=== PATIENT | female | born 1980 | race Caucasian/White ===

== ENCOUNTER 2020-03-09 13:52 | Emergency (ER) | payer OTHER, SELFPAY ==
[2020-03-09 14:26] VITALS: BP 123/79; PULSE 102; RESP 18; TEMP 37.9; O2SAT 98; BMI 37.6
--- NOTE | 2020-03-09 15:34 | ED.URI ---
HPI - URI/Sore Throat General Chief Complaint: Upper Respiratory Symptoms Stated Complaint: flu like symptoms Time Seen by Provider: 03/09/20 15:16 Source: patient Mode of arrival: ambulatory Limitations: no limitations History of Present Illness HPI Narrative: 40 y/o healthy female presenting with flu-like symptoms for the last 4-5 days. She states it started with GI symptoms including nasuea, vomiting, diarrhea and is now more respiratory. She has a dry cough, nasal congestion and intermittent fevers. No abdominal pain, N/V/D resolved. She denies chest pain, SOB, and WOODS. No known exposure to COVID-19. She did not get her flu vaccine this year. MD elicited complaint: fever, cough and nasal congestion Onset (ago): day(s) (5) Consistency: constant Severity: moderate Description of mucous: clear Able to tolerate fluids by mouth: Yes Exacerbating factors: deep breaths Relieving factors: NSAID and OTC cold medicine Context: sick contacts Associated symptoms: fever, chills, myalgias, headache, nasal congestion, cough, nausea, vomiting and diarrhea Treatments prior to arrival: none Related Data Previous Rx's Medication Instructions Recorded hydrocodone-homatropine 5 ml PO Q6H PRN #60 ml 03/09/20 Allergies Allergy/AdvReac Type Severity Reaction Status Date / Time No Known Allergies Allergy Unverified 01/01/20 19:44 [No Known Allergies*] Review of Systems Review of Systems: Constitutional: + Fever, + Chills ENT/Mouth: No sore throat, No Rhinorrhea, No Swallowing Difficulty Eyes: No Eye Pain, No Swelling, No Redness Cardiovascular: No Chest Pain, No SOB, No Orthopnea, No Edema Respiratory: + Cough, No Sputum, No Wheezing, No dyspnea Gastrointestinal: + Nausea, + Vomiting, + Diarrhea, No abdominal Pain, No Hematochezia, No Melena Genitourinary: No Dysuria, No Urinary Frequency, No Hematuria Musculoskeletal: No joint pain, +Myalgias Skin: No Skin Lesions, No rash Neuro: No Weakness, No Numbness, No Dizziness, + Headache Psych: No Anxiety/Panic, No Depression Heme/Lymph: No Bruising, No Lymphadenopathy Endocrine: No Polyuria, No Polydipsia PMFSH Past Medical History Attestation statement: The following information was validated with the patient. Medical History Kidney calculi Surgical History (Updated 03/09/20 @ 14:29 by Monty Dumont) Hx of cholecystectomy Social History Social History Advance Directives: No Advance Directives Information Provided: Yes Physical Exam Vital Signs: Vital Signs: Last Vital Signs Temp 100.2 F 03/09/20 14:26 Pulse 102 H 03/09/20 14:26 Resp 18 03/09/20 14:26 BP 123/79 03/09/20 14:26 Pulse Ox 98 03/09/20 14:26 Body Mass Index 37.6 Appearance: Alert. Oriented X3. No acute distress. Eyes: Pupils equal, round and reactive to light. ENT: Pharynx normal. Neck: Normal inspection. Neck supple. CVS: Normal heart rate and rhythm. Pulses normal. Respiratory: No respiratory distress. Breath sounds normal. Abdomen: Soft and nontender. +BS x4 Skin: Skin warm and dry. Normal skin color. Normal skin turgor. No rashes. Extremities: No lower extremity edema. Neuro: Oriented X 3. No motor deficit. No sensory deficit. Course Course Course Narrative: 40 y/o female presenting with flu-like symptoms. Mild tachycardia with low grade fever on arrival. No resp distress or hypoxia, patient appears non-toxic. Concern for viral etiology including COVID or influenza. Less likely bacterial pneumonia, gastroenteritis. Resp panel pending. Reevaluation(s) Reevaluation #1: COVID positive. No hypoxia. Stable for d/c. Patient counseled. MDM - URI/Sore Throat MDM Narrative Medical decision making narrative: COVID-19 Differential Diagnosis Differential diagnosis: Likely upper respiratory infection, croup, otitis media, sinusitis, viral infection, bronchitis, influenza and pharyngitis Lab Data Labs: Lab Results 03/09/20 Range/Units 15:48 Coronavirus (PCR) POSITIVE A (Negative) Influenza Type A (PCR) NEGATIVE (Negative) Influenza Type B (PCR) NEGATIVE (Negative) RSV RNA Qual (PCR) NEGATIVE (Negative) Critical Care Time Critical Care Time Critical Care Time: No Discharge Plan Discharge Clinical Impression: COVID-19 Patient Disposition: Home, Self-Care Instructions: COVID-19 (Coronavirus Disease 2019) (ED) Additional Instructions: You tested positive for COVID-19 today. Continue symptomatic managment with over the counter cold and flu medications. Tylenol and motrin as needed for fever. Do not go out in public for 10-14 days. If you develop shortness of breath, difficulty breathing or chest pain call 911 or come back to the ER for further evaluation. Prescriptions: New hydrocodone-homatropine 5-1.5 mg/5 mL syrup 5 ml PO Q6H PRN (Reason: cough) Qty: 60 RF: 0
[2020-03-09] MEDS: Acetaminophen 325 MG TABLET 650 MG PO (15:59)
[2020-03-09 16:34] LABS: Influenza A PCR NEGATIVE (Negative); Influenza B PCR NEGATIVE (Negative); Resp Syncy Virus RNA Qual PCR NEGATIVE (Negative); SARS COV2 PCR INHOUSE POSITIVE (Negative)
== END 2020-03-09 17:03 | disposition home or self-care (01) ==
PROVIDERS: Physician Assistant; Emergency Provider Emergency Medicine Emergency Medical Services; PCP Internal Medicine
DX: U07.1 COVID-19 (principal); R05 Cough
CPT/HCPCS: 0241U; 96374; 99283; 99285

== ENCOUNTER 2020-03-24 13:10 | Outpatient (REF) | payer OTHER, SELFPAY | END 2020-03-24 13:11 | disposition home or self-care (01) | LOC: HO.LAB 13:10 | PROVIDERS: PCP Internal Medicine; Visit Provider Internal Medicine | DX: Z20.828 Contact with and (suspected) exposure to other viral communicable diseases (principal) | CPT/HCPCS: C9803; U0003 ==

== ENCOUNTER 2020-04-06 11:36 | Outpatient (REF) | payer OTHER, SELFPAY | END 2020-04-06 11:37 | disposition home or self-care (01) | LOC: HO.LAB 11:36 | PROVIDERS: PCP Internal Medicine; Visit Provider Internal Medicine | DX: Z20.828 Contact with and (suspected) exposure to other viral communicable diseases (principal) | CPT/HCPCS: C9803; U0003 ==

== ENCOUNTER → 2020-04-14 13:33 | Outpatient (BNVA) | payer OTHER, SELFPAY | PROVIDERS: PCP Internal Medicine; Visit Provider Nurse Practitioner | DX: Z76.89 Persons encountering health services in other specified circumstances (principal) ==

== ENCOUNTER 2020-04-30 14:15 | Outpatient (REF) | payer OTHER, SELFPAY ==
--- NOTE | 2020-04-30 14:55 | XR_ITS ---
EXAMINATION: XR CHEST CLINICAL INFORMATION: Shortness of breath. COMPARISON: None TECHNIQUE: 2 views of the chest were obtained. FINDINGS: No significant abnormality is noted involving the heart, lungs, mediastinum, bony thorax or soft tissues. XR/XR chest 2V IMPRESSION: Unremarkable chest examination.
[2020-04-30 16:24] LABS: MANUAL DIFF FLAG NO
[2020-04-30 16:37] LABS: Basophils Percent Auto 0.5 % (0-2); Eosinophils Absolute Auto 0.2 X10*3/uL (0.0-0.4); Eosinophils Percent Auto 1.9 % (0-4); Hematocrit 39.9 % (37-47); Hemoglobin 13.2 g/dl (12.0-16.0); Imm Gran Abs Auto 0.06 X10*3/uL (0.00-0.03); Imm Gran Pct Auto 0.8 % (0.0-0.4); Lymphocytes Percent Auto 39.2 % (20-40); Mean Corpuscular HGB Conc 33.1 g/dl (31.0-35.0); Mean Corpuscular Hemoglobin 29.9 pg (27.0-33.0); Mean Corpuscular Volume 90.3 fL (80-98); Mean Platelet Volume 9.3 fL (9.4-12.3); Monocytes Absolute Auto 0.6 X10*3/uL (0.1-1.2); Monocytes Percent Auto 7.8 % (2-11); Neutrophils Absolute Auto 3.9 X10*3/uL (2.0-8.3); Neutrophils Percent Auto 49.8 % (45-73); Platelet Count 387 X10*3/uL (160-400); Red Blood Count 4.42 X10*6/uL (4.20-5.50); Red Cell Distribution Width 13.2 % (11.0-16.0); White Blood Count 7.7 X10*3/uL (4.8-10.8)
[2020-04-30 17:19] LABS: Alanine Aminotransferase 20 U/L (0-31); Albumin Level 4.1 g/dL (3.5-5.0); Alkaline Phosphatase 69 U/L (39-117); Anion Gap 15 (12-20); Aspartate Amino Transferase 15 U/L (5-31); Bilirubin Total 0.5 mg/dL (0.0-1.0); Blood Urea Nitrogen 13 mg/dL (9-16); Calcium 8.7 mg/dL (8.4-10.2); Carbon Dioxide 22 mmol/L (22-29); Chloride 106 mmol/L (96-108); Estimated Glomerular Filt Rate > 60; Glucose Random 77 mg/dL (60-115); Potassium 3.9 mmol/l (3.3-5.1); Sodium 139 mmol/L (135-145); Total Protein 7.3 g/dL (6.5-8.0)
== END 2020-04-30 14:16 | disposition home or self-care (01) ==
LOC: HO.LAB 14:15
PROVIDERS: PCP Internal Medicine; Visit Provider Internal Medicine
DX: R06.02 Shortness of breath (principal)
CPT/HCPCS: 36415; 71046; 80053; 85025

== ENCOUNTER 2020-05-12 10:48 | Emergency (ER) | payer OTHER, SELFPAY ==
--- NOTE | 2020-05-12 10:54 | ECG_ITS ---
Test Reason : CHEST PAIN Blood Pressure : / mmHG Vent. Rate : 119 BPM Atrial Rate : 119 BPM P-R Int : 154 ms QRS Dur : 060 ms QT Int : 314 ms P-R-T Axes : 066 068 052 degrees QTc Int : 441 ms Sinus tachycardia Otherwise normal ECG When compared with ECG of 31-AUG-2019 16:48, No significant changes seen Referred By: Ilia Banerjee Electronically Signed By:Yoshi Devi
--- NOTE | 2020-05-12 10:55 | ED.CHESTPAIN ---
HPI - Chest Pain General Chief Complaint: Chest Pain Stated Complaint: chest pain, headache Time Seen by Provider: 05/12/20 10:54 Source: patient Mode of arrival: ambulatory Limitations: no limitations History of Present Illness HPI narrative: Headache and chest pain and feesl like her heart is going fast. patient also having nausea. Patient feeling stressed as her mother had a bad case and was admitted to the ICU. MD complaint: chest pain Onset (ago): week(s) Timing of current episode: episodic Prior episodes: Yes Onset: during rest Pain location: substernal and left chest Severity: moderate Quality: tightness Relieving factors: nothing Exacerbating factors: nothing Related Data Home Medications Medication Instructions Recorded Confirmed omeprazole 20 mg capsule,delayed 20 mg PO DAILY 04/29/20 04/29/20 release Allergies Allergy/AdvReac Type Severity Reaction Status Date / Time No Known Allergies Allergy Verified 04/29/20 15:30 [No Known Allergies*] Review of Systems Constitutional: Constitutional: Reports no additional constitutional complaints Eyes: Eyes: Reports no additional eye complaints ENT: Denies dizziness Cardiovascular: Cardiovascular: Reports no additional cardiovascular complaints Respiratory: Respiratory: Reports as per HPI Gastrointestinal: Gastrointestinal: Reports no additional gastrointestinal complaints Genitourinary: Genitourinary: Reports no additional female genitourinary complaints Musculoskeletal: Musculoskeletal: Reports no additional musculoskeletal complaints Integumentary/Breasts: Skin/Breast: Denies rash Neurologic: Reports system reviewed and no additional complaints, except as documented, Denies dizziness and Denies Sensory deficit (Neuro) Psychiatric: Psychiatric: Denies anxiety PMFSH Past Medical History Medical History (Updated 05/12/20 @ 16:03 by Ilia Banerjee MD) COVID-19 Hernia Kidney calculi Migraines Shortness of breath Surgical History Hx of cholecystectomy S/P myomectomy Family History Family History Family/Other No pertinent past medical history Father Lung cancer Mother Hypertension Diabetes Social History Social History Alcohol intake: never Smoking Status: Never smoker Smoked in Last 30 Days: No Use of substances other than those prescribed or required for medical reasons: No Advance Directives: No Advance Directives Information Provided: Yes Physical Exam Vital Signs: Vital Signs: Last Vital Signs Temp 98.8 F 05/12/20 15:35 Pulse 109 H 05/12/20 15:35 Resp 18 05/12/20 15:35 BP 129/88 05/12/20 15:35 Pulse Ox 98 05/12/20 15:35 Body Mass Index 37.3 Const: General: healthy appearing Nutritional Appearance: overweight Orientation/consciousness: oriented to person and patient oriented x3 Limitations: no limitations HENMT: Head: Yes normal to inspection Ears: external ears normal General nose exam: Normal external nose present Mouth: Normal oral and palatal mucosa present and oropharynx normal Throat: Yes posterior oropharynx normal Eyes: General: appearance normal, both eyes and all related structures Neck: Other: supple Neck: Yes normal visual inspection Chest: Chest palpation & inspection: normal inspection of the chest Resp: Auscultation: clear to auscultation bilaterally Cardio: Other: tachycardia Jugular venous distension: no JVD Rate: regular rate Rhythm: regular rhythm GI: Inspection: Yes normal to inspection Palpation (GI): Soft to palpation, nontender and No hepatosplenomegaly present Auscultation: normal bowel sounds : General: Yes no CVA tenderness Back/Spine/Pelvis: Back: no CVA tenderness Skin: General skin exam: no rashes or lesions noted Neuro: General: oriented to person and patient oriented x3 Cranial nerves: Yes CN's II-XII intact bilaterally Motor exam (neuro): 5/5 motor strength present throughout Sensory Exam: No Sensory deficit (Neuro) Extrem: General: Yes normal to inspection Psych: Appearance: grossly normal Course Course Course Narrative: still waiting on chem 7 and TSH will dc with likely anxiety Reevaluation(s) Reevaluation #1: labs look normal will dc home Time: 16:14 MDM - Chest Pain Lab Data Result diagrams: 05/12/20 11:23 05/12/20 15:32 Labs: Lab Results 05/12/20 05/12/20 05/12/20 Range/Units 11:23 11:23 15:32 WBC 7.8 (4.8-10.8) X10*3/uL RBC 4.86 (4.20-5.50) X10*6/uL Hgb 14.6 (12.0-16.0) g/dl Hct 43.8 (37-47) % MCV 90.1 (80-98) fL MCH 30.0 (27.0-33.0) pg MCHC 33.3 (31.0-35.0) g/dl RDW 13.5 (11.0-16.0) % Plt Count 388 (160-400) X10*3/uL MPV 9.0 L (9.4-12.3) fL Immature Gran % (Auto) 0.6 H (0.0-0.4) % Neut % (Auto) 62.7 (45-73) % Lymph % (Auto) 27.7 (20-40) % Bulloch % (Auto) 6.4 (2-11) % Eos % (Auto) 2.1 (0-4) % Baso % (Auto) 0.5 (0-2) % Lymph # (Auto) 2.2 (1.2-4.9) X10*3/uL Bulloch # (Auto) 0.5 (0.1-1.2) X10*3/uL Eos # (Auto) 0.2 (0.0-0.4) X10*3/uL Baso # (Auto) 0.0 (0.0-0.2) X10*3/uL Abs Immat Gran (auto) 0.05 H (0.00-0.03) X10*3/uL Absolute Neuts (auto) 4.9 (2.0-8.3) X10*3/uL Absolute Nucleated RBC 0.000 (0.0-0.012) X10*3/uL Nucleated RBC % (auto) 0.0 (0.0-0.2) /100WBC Sodium 138 (135-145) mmol/L Potassium 3.8 (3.3-5.1) mmol/l Chloride 110 H (96-108) mmol/L Carbon Dioxide 20 L (22-29) mmol/L Anion Gap 12 (12-20) BUN 11 (9-16) mg/dL Creatinine 0.67 (0.5-1.4) mg/dL Estim Creat Clear Calc 101.3 Estimated GFR > 60 Random Glucose 94 (60-115) mg/dL Calcium 7.8 L D (8.4-10.2) mg/dL Troponin I High Sens < 3.5 (<3.5-17.0) ng/L ECG Data ECG #1: Attestation: I personally reviewed and interpreted this ECG as follows: Interpretation: sinus tachycardia rate of [address] or twave changes Discharge Plan Discharge Clinical Impression: Anxiety Headache Qualifiers: Headache type: tension-type Headache chronicity pattern: acute headache Intractability: not intractable Qualified Code(s): G44.209 - Tension-type headache, unspecified, not intractable Patient Disposition: Home, Self-Care Instructions: Acute Headache (ED), Anxiety (ED) Prescriptions: No Action omeprazole 20 mg capsule,delayed release(DR/EC) 20 mg PO DAILY RF: 0 Referrals: Cait Beckham MD [Primary Care Provider] - 2 days
[2020-05-12 10:58] VITALS: BP 121/76; PULSE 129; RESP 18; TEMP 37.1; O2SAT 96; BMI 37.3
[2020-05-12 11:04] VITALS: PULSE 129
[2020-05-12] MEDS: 0.9 % Sodium Chloride 1,000 ML 999 ML IVCONT ×2 (11:27→13:14)
[2020-05-12] MEDS: LORazepam 2 MG/ML VIAL 1 MG IVPUSH (11:28)
[2020-05-12] MEDS: Ketorolac Tromethamine 30 MG/ML VIAL IVPUSH (11:28)
[2020-05-12 11:30] LABS: MANUAL DIFF FLAG NO
--- NOTE | 2020-05-12 11:30 | PC.NURSE ---
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
[2020-05-12 11:36] LABS: Basophils Percent Auto 0.5 % (0-2); Eosinophils Absolute Auto 0.2 X10*3/uL (0.0-0.4); Eosinophils Percent Auto 2.1 % (0-4); Hematocrit 43.8 % (37-47); Hemoglobin 14.6 g/dl (12.0-16.0); Imm Gran Abs Auto 0.05 X10*3/uL (0.00-0.03); Imm Gran Pct Auto 0.6 % (0.0-0.4); Lymphocytes Absolute Auto 2.2 X10*3/uL (1.2-4.9); Lymphocytes Percent Auto 27.7 % (20-40); Mean Corpuscular HGB Conc 33.3 g/dl (31.0-35.0); Mean Corpuscular Volume 90.1 fL (80-98); Monocytes Absolute Auto 0.5 X10*3/uL (0.1-1.2); Monocytes Percent Auto 6.4 % (2-11); Neutrophils Absolute Auto 4.9 X10*3/uL (2.0-8.3); Neutrophils Percent Auto 62.7 % (45-73); Platelet Count 388 X10*3/uL (160-400); Red Blood Count 4.86 X10*6/uL (4.20-5.50); Red Cell Distribution Width 13.5 % (11.0-16.0); White Blood Count 7.8 X10*3/uL (4.8-10.8)
[2020-05-12 12:08] LABS: Troponin-I High Sensitivity < 3.5 ng/L (<3.5-17.0)
--- NOTE | 2020-05-12 13:14 | PC.NURSE ---
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
[2020-05-12 13:52] VITALS: BP 135/85; PULSE 99; RESP 18; TEMP 37.1; O2SAT 99
--- NOTE | 2020-05-12 13:53 | PC.NURSE ---
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
--- NOTE | 2020-05-12 14:43 | PC.NURSE ---
repeat labs tech was unable to obtain labs as patient is a difficult stick, phlebotomy was called to obtain labs
[2020-05-12 15:35] VITALS: BP 129/88; PULSE 109; RESP 18; TEMP 37.1; O2SAT 98
--- NOTE | 2020-05-12 15:35 | PC.NURSE ---
pt a&ox3, ambulated independently with steady gait to bathroom, radiographer cardiac catheterization sinus tach, vss, phlebotomy afua labs, will continue to monitor.
[2020-05-12 16:03] LABS: Anion Gap 12 (12-20); Blood Urea Nitrogen 11 mg/dL (9-16); Calcium 7.8 mg/dL (8.4-10.2); Carbon Dioxide 20 mmol/L (22-29); Creatinine Clr Calc Pharmacy 101.3; Estimated Glomerular Filt Rate > 60; Glucose Random 94 mg/dL (60-115); Potassium 3.8 mmol/l (3.3-5.1)
[2020-05-12 16:06] LABS: Chloride 110 mmol/L (96-108); Sodium 138 mmol/L (135-145)
[2020-05-12 16:26] LABS: TSH reflex Free T4 2.19 mIU/mL (0.32-4.0)
== END 2020-05-12 16:32 | disposition home or self-care (01) ==
PROVIDERS: Emergency Provider Emergency Medicine; PCP Internal Medicine
DX: G44.209 Tension-type headache, unspecified, not intractable (principal); R07.89 Other chest pain; F41.1 Generalized anxiety disorder; F43.0 Acute stress reaction; Z79.899 Other long term (current) drug therapy
CPT/HCPCS: 36415; 80048; 84443; 84484; 85025; 93005; 96361; 96374; 96375; 99284; J1885; J2060

== ENCOUNTER 2020-05-19 11:45 | Outpatient (REF) | payer OTHER, SELFPAY ==
[2020-05-19 12:38] LABS: Hematocrit 40.5 % (37-47); Hemoglobin 13.6 g/dl (12.0-16.0); Mean Corpuscular HGB Conc 33.6 g/dl (31.0-35.0); Mean Corpuscular Volume 89.4 fL (80-98); Platelet Count 409 X10*3/uL (160-400); Red Blood Count 4.53 X10*6/uL (4.20-5.50); Red Cell Distribution Width 13.1 % (11.0-16.0); White Blood Count 8.5 X10*3/uL (4.8-10.8)
[2020-05-19 13:11] LABS: Anion Gap 14 (12-20); Blood Urea Nitrogen 12 mg/dL (9-16); Calcium 9.3 mg/dL (8.4-10.2); Carbon Dioxide 23 mmol/L (22-29); Chloride 105 mmol/L (96-108); Cholesterol 148 mg/dL; Estimated Glomerular Filt Rate > 60; Glucose Fasting 79 mg/dL (60-99); HDL Cholesterol 45 mg/dL; LDL Cholesterol Calculated 90 mg/dl; Potassium 4.3 mmol/L (3.3-5.1); Sodium 138 mmol/L (135-145); Triglycerides 65 mg/dL
== END 2020-05-19 11:46 | disposition home or self-care (01) ==
LOC: HO.LAB 11:45
PROVIDERS: PCP Internal Medicine; Visit Provider Nurse Practitioner Family
DX: Z86.16 Personal history of COVID-19 (principal)
CPT/HCPCS: 36415; 80048; 80061; 85027

== ENCOUNTER 2020-05-24 09:15 | Outpatient (REF) | payer OTHER, SELFPAY ==
--- NOTE | 2020-05-24 14:59 | PFT_ITS ---
INDICATION: Dyspnea. SPIROMETRY: The FEV1 to FVC of 87% with an FEV1 of 2.31 L, which is 94% predicted and an FVC of 2.66 L, which is 89% predicted. No significant response to bronchodilators noted. Throughout, the patient does have some evidence of small airways disease. The maximum voluntary ventilation is 94% predicted. LUNG VOLUMES: Total lung capacity 96% predicted with a residual volume of 115% predicted and an expiratory reserve volume of 49% predicted. DIFFUSION CAPACITY: DLCO 121% predicted. COMPARISONS: None. INTERPRETATION: No obstructive nor restrictive ventilatory defects have been identified. No significant response to bronchodilators noted. The patient may have some component of small airways disease noted. Lung volumes are within normal limits except for slightly elevated residual volume suggesting the possibility of air trapping. The patient also has a high normal diffusion capacity, bringing up the question of exogenous exposure to carbon monoxide. If asthma is in the differential, methacholine challenge may be helpful in assessing for hyper-reactive airways. Otherwise, clinical correlation warranted. MD SAMUEL Lopez/MODOskar / [phone]
== END 2020-05-24 09:16 | disposition home or self-care (01) ==
LOC: HO.RESP 09:15
PROVIDERS: Visit Provider Internal Medicine
DX: R06.02 Shortness of breath (principal)
CPT/HCPCS: 94060; 94727; 94729; 99202

== ENCOUNTER → 2020-07-05 13:41 | Outpatient (REF) | payer OTHER, SELFPAY | LOC: HO.SL 13:41 | PROVIDERS: PCP Internal Medicine; Visit Provider Internal Medicine Pulmonary Disease | DX: G47.33 Obstructive sleep apnea (adult) (pediatric) (principal) | CPT/HCPCS: 95806 ==

== ENCOUNTER → 2020-07-20 15:07 | Outpatient (BNVA) | payer OTHER, SELFPAY | PROVIDERS: Visit Provider Internal Medicine Pulmonary Disease | DX: J45.40 Moderate persistent asthma, uncomplicated (principal); G47.33 Obstructive sleep apnea (adult) (pediatric) | CPT/HCPCS: 99212 ==

== ENCOUNTER 2020-07-25 20:15 | Emergency (ER) | payer OTHER, SELFPAY ==
[2020-07-25 20:20] VITALS: BP 144/66; PULSE 100; RESP 18; TEMP 36.8; O2SAT 98; BMI 38.0
--- NOTE | 2020-07-25 20:32 | ECG_ITS ---
Test Reason : DIZZINSS Blood Pressure : / mmHG Vent. Rate : 083 BPM Atrial Rate : 083 BPM P-R Int : 152 ms QRS Dur : 068 ms QT Int : 368 ms P-R-T Axes : 046 059 047 degrees QTc Int : 432 ms Normal sinus rhythm Normal ECG When compared with ECG of 12-MAY-2020 10:54, Nonspecific T wave abnormality no longer evident in Lateral leads Referred By: Generic ED Physician Electronically Signed By:COLBY BRASWELL
--- NOTE | 2020-07-25 21:08 | ED_ITS ---
HPI - General Adult General Chief complaint: General Medical Stated complaint: Headache,nausea,vomiting Time Seen by Provider: 07/25/20 21:06 Source: patient Mode of arrival: ambulatory History of Present Illness HPI narrative: This is a 40-year-old female with history of GERD and asthma who presents with 3 weeks of morning time nausea this seems to improve throughout the day and this has been accompanied by headache and feeling lightheaded. Patient does have significant travel history to [facility] and she returned on 07/02. She endorses that she is currently taking vitamins in an effort to become and that her LMP is 07/06-07/09 and that it was light pink in nature. Otherwise, she denies any fevers, chills, shortness of breath, chest pain/palpitations, abdominal pain/diarrhea, but is having some urinary frequency. No recent history of hemoptysis, estrogen supplementation, personal history of cancer, recent surgery or bed bound state, calf pain or calf swelling. In addition, patient has not been treating her headache with any Tylenol or ibuprofen. Related Data Home Medications Medication Instructions Recorded Confirmed omeprazole 20 mg capsule,delayed 20 mg PO DAILY 04/29/20 07/06/20 release vitamin 1 tab PO DAILY 05/17/20 07/06/20 no.76-iron,carbonyl 29 mg iron-folic acid 1 mg tablet Previous Rx's Medication Instructions Recorded budesonide-formoterol HFA 160 2 puff INHALATION BID 30 Days #1 ea 05/24/20 mcg-4.5 mcg/actuation aerosol inhaler calcium carbonate 500 mg calcium 500 mg PO DAILY #30 tab 07/06/20 (1,250 mg) tablet escitalopram oxalate 5 mg tablet 5 mg PO DAILY #30 tab 07/06/20 Allergies Allergy/AdvReac Type Severity Reaction Status Date / Time No Known Allergies Allergy Verified 07/20/20 15:14 [No Known Allergies*] Review of Systems Review of Systems: Pertinent positives and negatives as stated in HPI 10 point review of systems is otherwise negative. [facility] Past Medical History Source: nursing notes reviewed Medical History Anxiety and depression COVID-19 Hernia Hospital discharge follow-up Kidney calculi Migraines Post-COVID syndrome Shortness of breath Surgical History Hx of cholecystectomy S/P myomectomy Family History Family History Family/Other No pertinent past medical history Father Lung cancer Mother Hypertension Diabetes Social History Social History Alcohol intake: current Alcohol intake frequency: holidays/special occasions only Smoking Status: Never smoker Advance Directives: No Advance Directives Information Provided: Yes Physical Exam Vital Signs: Vital Signs: Last Vital Signs Temp 98.3 F 07/25/20 20:20 Pulse 84 07/25/20 23:01 Resp 18 07/25/20 20:20 BP 135/79 07/25/20 23:01 Pulse Ox 98 07/25/20 20:20 Body Mass Index 38.0 VITAL SIGNS: Reviewed. GENERAL: Well developed, well nourished, in no acute distress. HEAD: Normocephalic/atraumatic EYES: PERRLA, EOMI NOSE: Nares patent bilateral OROPHARYNX: no oral lesions noted, posterior pharynx clear , moist mucosa NECK: Supple, no adenopathy LUNGS: Normal breath sounds. SpO2<98> CARDIOVASCULAR: Regular rate and rhythm without noted murmurs ABDOMEN: Soft, non-tender, non-distended with bowel sounds. EXTREMITIES: No calf pain or swelling bilaterally. NEUROLOGIC: Alert and oriented x 4. Strength and sensation to light touch were grossly intact x 4, otherwise grossly nonfocal. Course Course Course Narrative: This is a 40-year-old female with history and clinical presentation suggestive possible and with history of migraines this is in the differential. On review of all investigations there are no acute findings. This was discussed with the patient at bedside and on re-evaluation she has had good resolution of her symptoms after receiving IV fluids and combination analgesics. She was discharged in stable condition with instructions to follow-up with a primary care provider by calling the office tomorrow morning Medical Decision Making Lab Data Result diagrams: 07/25/20 22:09 07/25/20 22:09 Labs: Lab Results 07/25/20 07/25/20 07/25/20 Range/Units 22:09 22:09 22:09 WBC 10.9 H (4.8-10.8) X10*3/uL RBC 4.46 (4.20-5.50) X10*6/uL Hgb 13.4 (12.0-16.0) g/dl Hct 40.2 (37-47) % MCV 90.1 (80-98) fL MCH 30.0 (27.0-33.0) pg MCHC 33.3 (31.0-35.0) g/dl RDW 12.7 (11.0-16.0) % Plt Count 326 (160-400) X10*3/uL MPV 9.1 L (9.4-12.3) fL Immature Gran % (Auto) 0.4 (0.0-0.4) % Neut % (Auto) 57.1 (45-73) % Lymph % (Auto) 33.3 (20-40) % Stanton % (Auto) 7.4 (2-11) % Eos % (Auto) 1.3 (0-4) % Baso % (Auto) 0.5 (0-2) % Lymph # (Auto) 3.6 (1.2-4.9) X10*3/uL Stanton # (Auto) 0.8 (0.1-1.2) X10*3/uL Eos # (Auto) 0.1 (0.0-0.4) X10*3/uL Baso # (Auto) 0.1 (0.0-0.2) X10*3/uL Abs Immat Gran (auto) 0.04 H (0.00-0.03) X10*3/uL Absolute Neuts (auto) 6.3 (2.0-8.3) X10*3/uL Absolute Nucleated RBC 0.000 (0.0-0.012) X10*3/uL Nucleated RBC % (auto) 0.0 (0.0-0.2) /100WBC Sodium 139 (135-145) mmol/L Potassium 4.5 (3.3-5.1) mmol/L Chloride 108 (96-108) mmol/L Carbon Dioxide 20 L (22-29) mmol/L Anion Gap 16 (12-20) BUN 13 (9-16) mg/dL Creatinine 0.76 (0.5-1.4) mg/dL Estim Creat Clear Calc 90.4 Estimated GFR > 60 Random Glucose 98 (60-115) mg/dL Calcium 8.7 D (8.4-10.2) mg/dL Total Bilirubin 0.3 (0.0-1.0) mg/dL AST 25 D (5-31) U/L ALT 19 (0-31) U/L Alkaline Phosphatase 67 (39-117) U/L Total Protein 7.7 (6.5-8.0) g/dL Albumin 4.0 (3.5-5.0) g/dL Urine Color YELLOW Urine Appearance CLEAR Urine pH 6.0 (5.0-8.0) Ur Specific Firth 1.025 (1.005-1.025) Urine Protein NEG (NEG-TRACE) MG/DL Urine Glucose (UA) NEG (NEG) MG/DL Urine Ketones NEG (NEG) MG/DL Urine Blood NEG (NEG) Urine Nitrite NEG (NEG) Ur Leukocyte Esterase NEG (NEG) Urine Test (NEGATIVE) 07/25/20 Range/Units 22:09 WBC (4.8-10.8) X10*3/uL RBC (4.20-5.50) X10*6/uL Hgb (12.0-16.0) g/dl Hct (37-47) % MCV (80-98) fL MCH (27.0-33.0) pg MCHC (31.0-35.0) g/dl RDW (11.0-16.0) % Plt Count (160-400) X10*3/uL MPV (9.4-12.3) fL Immature Gran % (Auto) (0.0-0.4) % Neut % (Auto) (45-73) % Lymph % (Auto) (20-40) % Stanton % (Auto) (2-11) % Eos % (Auto) (0-4) % Baso % (Auto) (0-2) % Lymph # (Auto) (1.2-4.9) X10*3/uL Stanton # (Auto) (0.1-1.2) X10*3/uL Eos # (Auto) (0.0-0.4) X10*3/uL Baso # (Auto) (0.0-0.2) X10*3/uL Abs Immat Gran (auto) (0.00-0.03) X10*3/uL Absolute Neuts (auto) (2.0-8.3) X10*3/uL Absolute Nucleated RBC (0.0-0.012) X10*3/uL Nucleated RBC % (auto) (0.0-0.2) /100WBC Sodium (135-145) mmol/L Potassium (3.3-5.1) mmol/L Chloride (96-108) mmol/L Carbon Dioxide (22-29) mmol/L Anion Gap (12-20) BUN (9-16) mg/dL Creatinine (0.5-1.4) mg/dL Estim Creat Clear Calc Estimated GFR Random Glucose (60-115) mg/dL Calcium (8.4-10.2) mg/dL Total Bilirubin (0.0-1.0) mg/dL AST (5-31) U/L ALT (0-31) U/L Alkaline Phosphatase (39-117) U/L Total Protein (6.5-8.0) g/dL Albumin (3.5-5.0) g/dL Urine Color Urine Appearance Urine pH (5.0-8.0) Ur Specific Firth (1.005-1.025) Urine Protein (NEG-TRACE) MG/DL Urine Glucose (UA) (NEG) MG/DL Urine Ketones (NEG) MG/DL Urine Blood (NEG) Urine Nitrite (NEG) Ur Leukocyte Esterase (NEG) Urine Test NEGATIVE (NEGATIVE) ECG Data Attestation: I personally reviewed and interpreted this ECG as follows: Prior ECG tracings: available for review (05/12/2020 no acute changes on comparison) Interpretation: Sinus rhythm, HR-83, no acute evidence of acute ischemia, DE/QRS/QTC are within normal limits. Discharge Plan Discharge Clinical Impression: Headache, Nausea Patient Disposition: Home, Self-Care Instructions: General Headache (ED) Additional Instructions: 1. Continue to stay well hydrated especially with water. 2. Please follow-up with your primary care provider by calling the office tomorrow morning to set up a re-evaluation appointment. 3. Do not hesitate to take [id number] Tylenol/ibuprofen as needed for headache. Do not hesitate to return to the emergency department for any acute worsening of your symptoms. Prescriptions: No Action calcium carbonate 500 mg calcium (1,250 mg) tablet 500 mg PO DAILY Qty: 30 RF: 0 escitalopram oxalate 5 mg tablet 5 mg PO DAILY Qty: 30 RF: 0 omeprazole 20 mg capsule,delayed release(DR/EC) 20 mg PO DAILY RF: 0 PNV 29-1 29 mg iron- 1 mg tablet 1 tab PO DAILY RF: 0 budesonide-formoterol 160-4.5 mcg/actuation HFA aerosol inhaler 2 puff inhalation BID 30 Days Qty: 1 RF: 3 Referrals: Cait Beckham MD [Primary Care Provider] - 2 days (Re-evaluation after seen in the emergency department for headache and mild nausea isolated to morning time.)
[2020-07-25] MEDS: ondansetron HCL 4 MG/2 ML VIAL IVPUSH (22:00)
[2020-07-25] MEDS: 0.9 % Sodium Chloride 1,000 ML 999 ML IV (22:00)
[2020-07-25 22:16] LABS: MANUAL DIFF FLAG NO
[2020-07-25 22:17] LABS: Basophils Absolute Auto 0.1 X10*3/uL (0.0-0.2); Basophils Percent Auto 0.5 % (0-2); Eosinophils Absolute Auto 0.1 X10*3/uL (0.0-0.4); Eosinophils Percent Auto 1.3 % (0-4); Hematocrit 40.2 % (37-47); Hemoglobin 13.4 g/dl (12.0-16.0); Imm Gran Abs Auto 0.04 X10*3/uL (0.00-0.03); Imm Gran Pct Auto 0.4 % (0.0-0.4); Lymphocytes Absolute Auto 3.6 X10*3/uL (1.2-4.9); Lymphocytes Percent Auto 33.3 % (20-40); Mean Corpuscular HGB Conc 33.3 g/dl (31.0-35.0); Mean Corpuscular Volume 90.1 fL (80-98); Mean Platelet Volume 9.1 fL (9.4-12.3); Monocytes Absolute Auto 0.8 X10*3/uL (0.1-1.2); Monocytes Percent Auto 7.4 % (2-11); Neutrophils Absolute Auto 6.3 X10*3/uL (2.0-8.3); Neutrophils Percent Auto 57.1 % (45-73); Platelet Count 326 X10*3/uL (160-400); Red Blood Count 4.46 X10*6/uL (4.20-5.50); Red Cell Distribution Width 12.7 % (11.0-16.0); White Blood Count 10.9 X10*3/uL (4.8-10.8)
[2020-07-25 22:19] LABS: Glucose Urine UA NEG (NEG); Leukocyte Esterase Urine NEG (NEG); Nitrite Urine NEG (NEG); Specific Gravity - Urine 1.025 (1.005-1.025); Urine Blood NEG (NEG); Urine Ketones NEG (NEG); Urine Protein NEG (NEG-TRACE)
[2020-07-25 22:23] LABS: Appearance Urine CLEAR; Color Urine YELLOW; Urine Pregnancy NEGATIVE (NEGATIVE)
[2020-07-25 22:24] LABS: UPreg QC Valid YES
[2020-07-25 22:54] LABS: Alanine Aminotransferase 19 U/L (0-31); Alkaline Phosphatase 67 U/L (39-117); Anion Gap 16 (12-20); Aspartate Amino Transferase 25 U/L (5-31); Bilirubin Total 0.3 mg/dL (0.0-1.0); Blood Urea Nitrogen 13 mg/dL (9-16); Calcium 8.7 mg/dL (8.4-10.2); Carbon Dioxide 20 mmol/L (22-29); Chloride 108 mmol/L (96-108); Creatinine Clr Calc Pharmacy 90.4; Estimated Glomerular Filt Rate > 60; Glucose Random 98 mg/dL (60-115); Potassium 4.5 mmol/L (3.3-5.1); Sodium 139 mmol/L (135-145); Total Protein 7.7 g/dL (6.5-8.0)
[2020-07-25 23:01] VITALS: BP 135/79; PULSE 84
--- NOTE | 2020-07-25 23:02 | PC.NURSE ---
Supine: 84, 135/79 Sittin, 151/90 Standin, 170/86
--- NOTE | 2020-07-25 23:23 | PC.NURSE ---
Report from jannet Ellsworth VS obtained. Pt sleeping when this RN entered room, appears NAD. Offering no new complaints at this time.
[2020-07-25] MEDS: Ketorolac Tromethamine 15 MG/ML VIAL IVPUSH (23:55)
[2020-07-25] MEDS: Acetaminophen 325 MG TABLET 975 MG PO (23:55)
[2020-07-26] VITALS: PULSE 76; RESP 16; O2SAT 100
--- NOTE | 2020-07-26 00:01 | PC.NURSE ---
pt medicated with tylenol and toradol for h/a.
== END 2020-07-26 00:18 | disposition home or self-care (01) ==
PROVIDERS: Emergency Provider Student in an Organized Health Care Education/Training Program; PCP Internal Medicine
DX: R51.9 Headache, unspecified (principal); R11.0 Nausea; Z86.16 Personal history of COVID-19
CPT/HCPCS: 36415; 80053; 81003; 81025; 85025; 93005; 96361; 96374; 96375; 99284; J1885; J2405

== ENCOUNTER 2020-08-18 18:15 | Emergency (ER) | payer OTHER, SELFPAY ==
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
[2020-08-18 19:03] VITALS: BP 127/78; PULSE 92; RESP 18; TEMP 36.8; O2SAT 98; BMI 35.9
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
== END 2020-08-18 22:43 | disposition home or self-care (01) ==
PROVIDERS: Emergency Provider Internal Medicine; PCP Internal Medicine
DX: S80.12XA Contusion of left lower leg, initial encounter (principal); V03.00XA Pedestrian on foot injured in collision with car, pick-up truck or van in nontraffic accident, initial encounter; Y93.89 Activity, other specified; Y92.481 Parking lot as the place of occurrence of the external cause; Y99.9 Unspecified external cause status
CPT/HCPCS: 73590; 99283; 99284

== ENCOUNTER → 2021-01-05 10:09 | Outpatient (BNVA) | payer OTHER, SELFPAY | PROVIDERS: PCP Internal Medicine; Visit Provider Internal Medicine Pulmonary Disease | DX: J45.40 Moderate persistent asthma, uncomplicated (principal); G47.33 Obstructive sleep apnea (adult) (pediatric) | CPT/HCPCS: 99212 ==

== ENCOUNTER 2021-01-09 20:03 | Emergency (ER) | payer OTHER, SELFPAY ==
[2021-01-09 20:06] VITALS: BP 131/82; PULSE 94; RESP 18; TEMP 36.6; O2SAT 98; BMI 38.8
--- NOTE | 2021-01-09 22:47 | ED.GENADULT ---
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 no neck pain no headache no weakness , no paresthesias in the past no paresthesias in the lower extremity Related Data Home Medications Medication Instructions Recorded Confirmed omeprazole 20 mg capsule,delayed 20 mg PO DAILY 04/29/20 08/03/20 release vitamin 1 tab PO DAILY 05/17/20 08/03/20 no.76-iron,carbonyl 29 mg iron-folic acid 1 mg tablet Previous Rx's Medication Instructions Recorded calcium carbonate 500 mg calcium 500 mg PO DAILY #30 tab 07/06/20 (1,250 mg) tablet escitalopram oxalate 5 mg tablet 5 mg PO DAILY #30 tab 07/06/20 Symbicort 160 mcg-4.5 2 puff PO BID #30.6 g NS 12/06/20 mcg/actuation HFA aerosol inhaler (budesonide-formoterol) Allergies Allergy/AdvReac Type Severity Reaction Status Date / Time No Known Allergies Allergy Verified 01/09/21 20:05 [No Known Allergies*] Review of Systems Review of Systems: Yes all other systems are reviewed and are negative PMFSH Past Medical History Medical History Anxiety and depression COVID-19 Hernia Hospital discharge follow-up Kidney calculi Migraines Post-COVID syndrome Shortness of breath Surgical History Hx of cholecystectomy S/P myomectomy Family History Family History Family/Other No pertinent past medical history Father Lung cancer Mother Hypertension Diabetes Social History Social History Alcohol intake: never Advance Directives: No Advance Directives Information Provided: Yes Patient : No Physical Exam Vital Signs: Vital Signs: Last Vital Signs Temp 97.9 F 01/09/21 20:06 Pulse 94 01/09/21 20:06 Resp 18 01/09/21 20:06 BP 131/82 01/09/21 20:06 Pulse Ox 98 01/09/21 20:06 Body Mass Index 38.8 Appearance: Alert. Oriented X3. No acute distress. Neck: Normal inspection. Neck supple. No midline tenderness CVS: Normal heart rate and rhythm. Pulses normal. Respiratory: No respiratory distress. Equal air entry bilateral, Extremities: No lower extremity edema. No calf tenderness Tinel sign positive right hand negative left side sensory intact neurovascular intact Neuro: Oriented X 3. No motor deficit. No sensory deficit.No cerebellar signs , cranial nerves II-XII intact Medical Decision Making MDM Narrative Medical decision making narrative: Clinically patient has carpal tunnel syndrome or on the right side the left at this time patient denies any numbness or tingling but elicited on tapping of the median nerve discharge patient home on splint advised to follow with PCP Discharge Plan Discharge Clinical Impression: Bilateral carpal tunnel syndrome Patient Disposition: Home, Self-Care Instructions: Paresthesia (ED) Additional Instructions: Likely have carpal tunnel syndrome more on the right and in the left. Wear the splint in the nighttime. Follow with PCP for further evaluation treatment Prescriptions: No Action calcium carbonate 500 mg calcium (1,250 mg) tablet 500 mg PO DAILY Qty: 30 RF: 0 escitalopram oxalate 5 mg tablet 5 mg PO DAILY Qty: 30 RF: 0 budesonide-formoterol [Symbicort] 160-4.5 mcg/actuation HFA aerosol inhaler 2 puff PO BID Qty: 30.6 RF: 1 omeprazole 20 mg capsule,delayed release(DR/EC) 20 mg PO DAILY RF: 0 PNV 29-1 29 mg iron- 1 mg tablet 1 tab PO DAILY RF: 0 Interventions: ED Discharge Assessment Last Done: 01/09/21 23:08 Discharge Date/Time: 01/09/21 23:13
== END 2021-01-09 23:13 | disposition home or self-care (01) ==
PROVIDERS: Emergency Provider Internal Medicine; PCP Internal Medicine
DX: G56.03 Carpal tunnel syndrome, bilateral upper limbs (principal); R20.0 Anesthesia of skin; Z79.899 Other long term (current) drug therapy
CPT/HCPCS: 99283

== ENCOUNTER 2021-03-16 08:08 | Outpatient (REF) | payer OTHER, SELFPAY ==
--- NOTE | 2021-03-16 08:20 | EMG_ITS ---
This is a 41-year-old woman with a 3-month history of pain, numbness, and tingling in both hands with the right being worse than the left, with nocturnal symptoms that wake her up at night. PHYSICAL EXAMINATION: On examination, she is alert and oriented with normal intellectual functions. Cranial nerves II through XII are normal. Muscle tone and strength are normal. No Tinel or Phalen sign. IMPRESSION: Carpal tunnel syndrome. Nerve conduction EMG study: Moderate carpal tunnel syndrome on the right, mild carpal tunnel syndrome on the left. Normal EMG of the right C5-T1 innervated muscles. MD SARAH Marroquin/TAMIKO / [id number]
== END 2021-03-16 08:09 | disposition home or self-care (01) ==
LOC: HO.NEURO 08:08
PROVIDERS: Visit Provider Internal Medicine
DX: R20.0 Anesthesia of skin (principal)
CPT/HCPCS: 95885; 95913

== ENCOUNTER 2021-05-06 20:11 | Emergency (ER) | payer OTHER, SELFPAY ==
[2021-05-06 20:32] VITALS: BP 114/77; PULSE 95; RESP 16; TEMP 36.8; O2SAT 100; BMI 38.0
[2021-05-06 20:38] VITALS: BP 114/77; PULSE 94; RESP 16; TEMP 36.8; O2SAT 100; BMI 38.0
[2021-05-06 21:00] LABS: UPreg QC Valid YES; Urine Pregnancy NEGATIVE (NEGATIVE)
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
== END 2021-05-06 21:59 | disposition home or self-care (01) ==
PROVIDERS: Emergency Provider Internal Medicine; PCP Internal Medicine
DX: N92.6 Irregular menstruation, unspecified (principal)
CPT/HCPCS: 81025; 99283

== ENCOUNTER → 2021-05-10 09:31 | Outpatient (BNVA) | payer OTHER, SELFPAY | PROVIDERS: PCP Internal Medicine; Visit Provider Orthopaedic Surgery | DX: G56.03 Carpal tunnel syndrome, bilateral upper limbs (principal) | CPT/HCPCS: 99202 ==

== ENCOUNTER 2021-05-26 09:10 | Day surgery (SDC) | payer OTHER, SELFPAY ==
[2021-05-26 09:28] VITALS: BMI 37.6
[2021-05-26 09:53] VITALS: BP 151/93; PULSE 78; RESP 20; TEMP 36.7; O2SAT 100
--- NOTE | 2021-05-26 11:23 | MHC.SHP ---
Pre-Procedural Eval Section A Date of Service: 05/26/21 The patient is an INPATIENT: No Changes since office visit: No Cold of Flu in the past 2 weeks, No New Medical Problems, No Changes in Medication and No Patient answered all questions The History & Physical has been completed within 30 days and I have reviewed it.: Yes Section B Chief Complaint: carpal tunnel Allergies: Allergies Allergy/AdvReac Type Severity Reaction Status Date / Time No Known Allergies Allergy Verified 05/18/21 09:31 [No Known Allergies*] Plan I have reviewed the history and physical and performed a pertinent physical examination on my patient. No changes have occurred unless specified.
--- NOTE | 2021-05-26 11:23 | W.PM.OPN ---
Operative Note Operative Note Date of Service: 05/26/21 Narrative: Preop diagnosis: 1. right Carpal tunnel syndrome Postop diagnosis: same Procedure: 1. right Carpal tunnel release Surgeon: Carlie Villasenor MD Anesthesia: local block using 1% lidocaine with epinephrine Findings: Thickened transverse carpal ligament. EBL: Less than 5 mL Specimens: None Complications: None Disposition: Brought to recovery room in stable condition Plan: Follow-up for 10-14 days for wound check and suture removal Indications: The patient is 41 years old, with right carpal tunnel syndrome that has been unresponsive to nonoperative management. The risks and benefits of operative treatment including but not limited to risk of damage to blood vessels, nerves, tendons, infection, persistent pain, persistent symptoms, or possible need for additional surgery were discussed with the patient and the patient wishes to proceed with surgery. Procedure: Once consent was obtained a local block was performed using a combination of 1% lidocaine with epinephrine. The patient was then brought back to the operating suite and placed on the operative table in supine position. A tourniquet was applied to the proximal aspect of the right upper extremity and the limb was prepped and draped in a standard surgical fashion. Once assured that we had a good block, a 1.5 cm longitudinal incision was made centered over the carpal tunnel. The incision was made through the skin to the subcutaneous tissues using a #15 blade. Dissection was made down to the level of the transverse carpal ligament with care being taken to protect the palmar cutaneous nerve. Once the transverse carpal ligament was clearly visualized, a longitudinal incision was made in the transverse carpal ligament 1st using a #15 blade, then using tenotomy scissors under direct visualization. Care was taken to look for and protect the motor branch of the median nerve when seen in this area. Once satisfied with our carpal tunnel release the wound was copiously irrigated with normal saline and hemostasis was obtained with a brief period of local pressure. The skin edges were reapproximated with some 5.0 nylon suture material and a sterile dressing was applied. The patient appears to have tolerated the procedure well and with no complications. All digits were well vascularized at the conclusion of the case.
[2021-05-26 14:51] VITALS: BP 139/89; PULSE 96; RESP 16; TEMP 36.9; O2SAT 100
== END 2021-05-26 15:05 ==
LOC: HO.SSS 09:11
PROVIDERS: PCP Internal Medicine; Visit Provider Orthopaedic Surgery
PROC: (CPT 64721; principal; 2021-05-26 12:10)
DX: G56.01 Carpal tunnel syndrome, right upper limb (principal); R20.0 Anesthesia of skin; F33.0 Major depressive disorder, recurrent, mild; F41.1 Generalized anxiety disorder; R06.02 Shortness of breath; U09.9 Post COVID-19 condition, unspecified
CPT/HCPCS: 64721

== ENCOUNTER → 2021-06-08 08:28 | Outpatient (BNVA) | payer OTHER, SELFPAY | PROVIDERS: PCP Internal Medicine; Visit Provider Orthopaedic Surgery | DX: G56.01 Carpal tunnel syndrome, right upper limb (principal) | CPT/HCPCS: 99212 ==

== ENCOUNTER 2021-08-24 17:31 | Emergency (ER) | payer OTHER, SELFPAY ==
[2021-08-24 17:46] VITALS: BP 141/92; PULSE 101; RESP 18; TEMP 37; O2SAT 98; BMI 37.6
[2021-08-24 18:13] LABS: IDNOW Serial# 55D5AD1C; Influenza A Negative (Negative); Influenza B2 Negative (Negative)
[2021-08-24 18:16] LABS: COVID-19 Test Negative (Negative)
--- NOTE | 2021-08-24 18:57 | ED.GENADULT ---
HPI - General Adult General Chief complaint: General Medical Stated complaint: migraine, nausea Time Seen by Provider: 08/24/21 18:43 Source: patient Mode of arrival: ambulatory History of Present Illness HPI narrative: 41-year-old female with a past medical history of anxiety, depression, KAYLA, migraines, presenting to the emergency department complaining of generalized fatigue/malaise, body aches and migraine headache since yesterday. Reports episode of dizziness yesterday which resolved, denies dizziness at present. Admits migraine headache feels similar to prior, not maximal in onset. Denies neck pain, CP/SOB, cough, numbness, tingling, visual changes Onset (ago): day(s) Related Data Home Medications Medication Instructions Recorded Confirmed omeprazole 20 mg capsule,delayed 20 mg PO DAILY 04/29/20 07/26/21 release vitamin with calcium 1 tab PO DAILY 07/26/21 07/26/21 no.72-iron 27 mg-folic acid 1 mg tablet ( Vitamins Plus Low Iron) Previous Rx's Medication Instructions Recorded calcium carbonate 500 mg calcium 500 mg PO DAILY #30 tab 07/06/20 (1,250 mg) tablet escitalopram oxalate 5 mg tablet 5 mg PO DAILY #30 tab 07/06/20 triamcinolone acetonide 0.1 % 1 appl TOPICAL DAILY 14 Days #15 g 04/28/21 topical cream Symbicort 160 mcg-4.5 2 puff PO BID #30.6 ea NS 06/08/21 mcg/actuation HFA aerosol inhaler (budesonide-formoterol) blood pressure monitor #1 ea 06/15/21 hydroxyzine HCl 10 mg tablet 10 mg PO Q12H PRN #10 tab 06/15/21 fluticasone propionate 50 1 spray INTRANASAL DAILY #100 ml 07/26/21 mcg/actuation nasal spray,suspension (Flonase Allergy Relief) [id number]-lbpsnoarwzolb-oybcadtr 1 cap PO Q4-6H PRN #14 cap 08/24/21 50 mg-300 mg-40 mg capsule (Fioricet) Allergies Allergy/AdvReac Type Severity Reaction Status Date / Time No Known Allergies Allergy Verified 07/26/21 09:34 [No Known Allergies*] Review of Systems Review of Systems: Constitutional: No Fever, No Chills, + Fatigue, + Malaise ENT/Mouth: No Ear Pain, No Nasal Congestion, No sore throat, No Rhinorrhea, No Swallowing Difficulty Eyes: No Eye Pain, No Swelling, No Redness, No Vision Changes Cardiovascular: No Chest Pain, No SOB, No Palpitations Respiratory: No Cough, No Dyspnea Gastrointestinal: No Nausea, No Vomiting, No Diarrhea, No Constipation, No Abdominal pain Genitourinary: No Dysuria, No Urinary Incontinence/retention Musculoskeletal: No joint pain, No Myalgias, No Joint Swelling Skin: No Skin Lesions, No rash Neuro: No Weakness, No Numbness, No Paresthesias, No Loss of Consciousness, + Dizziness (resolved), + Headache Yes all other systems are reviewed and are negative Neurologic: Denies Abnormal speech present PMFSH Past Medical History Attestation statement: The following information was validated with the patient. Medical History Anxiety and depression Carpal tunnel syndrome COVID-19 KAYLA (generalized anxiety disorder) Hand numbness Hernia Hospital discharge follow-up Kidney calculi Migraines Mild recurrent major depression Pelvic pain in female Post-COVID syndrome Shortness of breath Surgical History Hx of cholecystectomy S/P myomectomy Family History Family History Family/Other No pertinent past medical history Father Lung cancer Mother Hypertension Diabetes Social History Social History Housing: Apartment Alcohol intake: current Alcohol intake frequency: holidays/special occasions only Alcohol type: wine and hard liquor Patient Tobacco Use Status: Never used Tobacco e-Cigarette/Vaping Use: Never Used Second Hand Smoke Exposure: Yes Advance Directives: No Advance Directives Information Provided: No service: No Current occupational status: employed 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 Cognitive needs: No Hearing needs: No Vision needs: No Physical Exam ED Vital Signs: Vital Signs - 24 hr 08/24/21 17:46 08/24/21 19:15 08/24/21 19:16 Temperature 98.6 F Pulse Rate 101 H 90 88 Respiratory Rate 18 Blood Pressure 141/92 H 132/76 130/73 Pulse Oximetry 98 08/24/21 19:17 Temperature Pulse Rate 96 Respiratory Rate Blood Pressure 140/80 H Pulse Oximetry BMI result Body Mass Index 37.6 Const General: cooperative, healthy appearing, no acute distress, well developed, alert and awake Orientation/consciousness: patient oriented x3 Limitations: no limitations HENMT Head: Yes normal to inspection and Yes atraumatic Ears: hearing grossly normal bilaterally General nose exam: Normal external nose present Face and sinus: Yes normal facial exam Mouth: Normal oral and palatal mucosa present Throat: Yes posterior oropharynx normal Eyes General: appearance normal, both eyes and all related structures Pupils: Equal, round and reactive pupils present EOM: EOMs intact bilaterally Neck Neck: Yes normal visual inspection, Yes no lymphadenopathy, Yes no meningeal signs and Yes supple Resp Effort & Inspection: normal respiratory effort and no respiratory distress Auscultation: clear to auscultation bilaterally, no rales, no rhonchi and no wheezes Cardio Rate: regular rate Heart sounds: S1 normal heart sound present and S2 normal heart sound present GI Inspection: Yes normal to inspection Skin Rashes: no rashes Wounds: no wounds Neuro General: patient oriented x3, gait normal, tone normal, moves all extremities, no meningeal signs and no focal motor deficits Cranial nerves: Yes CN's II-XII intact bilaterally and Yes Equal, round and reactive pupils present Cognition (Neuro): normal cognition Speech: No Abnormal speech present Gait exam (Neuro): Normal gait present Motor exam (neuro): 5/5 motor strength present throughout Extrem General: Yes normal to inspection Course Course Course Narrative: -COVID 19 and flu negative -orthostatic vital signs negative > patient reports symptomatic improvement after Fioricet. Discussed results including some worrisome signs and symptoms and strict return precautions Medical Decision Making [facility] Narrative Medical decision making narrative: 41-year-old female with a past medical history of anxiety, depression, KAYLA, migraines, presenting to the emergency department complaining of generalized fatigue/malaise, body aches and migraine headache since yesterday. On exam mildly tachycardic initially likely from pain, NAD/nontoxic-appearing, no focal neuro deficits. Concern for viral illness vs migraine headache. Low concern for ICH/ CVT, pneumonia, ACS Plan: COVID-19/influenza, orthostatic vital signs, PO Fioricet, re-evaluate Medical Records Medical records reviewed: Yes I reviewed the patient's medical records. Lab Data Lab results reviewed: Yes I reviewed the patient's lab results. Labs: Lab Results 08/24/21 08/24/21 Range/Units 17:52 17:52 COVID-19 (OLIVIA) Negative (Negative) COVID-19 Clin Com See Note Influenza Type A (SHUKRI) Negative (Negative) Influenza Type B (SHUKRI) Negative (Negative) Influenza A & B Note See Note Discharge Plan Discharge Clinical Impression: Acute viral syndrome Patient Disposition: Home, Self-Care Instructions: Viral Syndrome (ED) Additional Instructions: You tested negative for COVID-19 and the flu. Fioricet as a combination headache medication, take as needed for migraines. Be aware this medication has Tylenol mixed in, do not exceed 4 g of Tylenol in 1 day. Rest. Stay hydrated, push fluids. If symptoms persist or worsen, you have unremitting headache or fever unresolved medications return to the ED Prescriptions: New crcgjmtjpk-rplbxcxsawxkk-qpyd [Fioricet] 50-300-40 mg capsule 1 cap PO Q4-6H PRN (Reason: headache) Qty: 14 0RF No Action calcium carbonate 500 mg calcium (1,250 mg) tablet 500 mg PO DAILY Qty: 30 0RF escitalopram oxalate 5 mg tablet 5 mg PO DAILY Qty: 30 0RF budesonide-formoterol [Symbicort] 160-4.5 mcg/actuation HFA aerosol inhaler 2 puff PO BID Qty: 30.6 1RF omeprazole 20 mg capsule,delayed release(DR/EC) 20 mg PO DAILY 0RF triamcinolone acetonide 0.1 % cream 1 appl topical DAILY 14 Days Qty: 15 0RF Vitamin Plus Low Iron 27 mg iron- 1 mg tablet 1 tab PO DAILY 0RF fluticasone propionate [Flonase Allergy Relief] 50 mcg/actuation spray,suspension 1 spray intranasal DAILY Qty: 100 0RF Rx Instructions: administer into each nostril hydroxyzine HCl 10 mg tablet 10 mg PO Q12H PRN (Reason: anxiety) Qty: 10 0RF (DME) blood pressure monitor Kit See Rx Instructions .Route Qty: 1 0RF Rx Instructions: As directed Referrals: Cait Beckham MD [Primary Care Provider] - 3 days
[2021-08-24] MEDS: Butalb/Acetamin/Caff 50/325/40 TABLET 1 TAB PO (19:10)
[2021-08-24 19:15] VITALS: BP 132/76; PULSE 90
[2021-08-24 19:16] VITALS: BP 130/73; PULSE 88
[2021-08-24 19:17] VITALS: BP 140/80; PULSE 96
== END 2021-08-24 20:51 | disposition home or self-care (01) ==
PROVIDERS: Emergency Provider Internal Medicine; PCP Internal Medicine
DX: B34.9 Viral infection, unspecified (principal); G43.909 Migraine, unspecified, not intractable, without status migrainosus; Z20.822 Contact with and (suspected) exposure to COVID-19; Z79.899 Other long term (current) drug therapy
CPT/HCPCS: 87502; 87635; 99283

== ENCOUNTER 2021-09-16 14:00 | Outpatient (RCR) | payer OTHER, SELFPAY ==
--- NOTE | 2021-08-26 10:37 | MHC.OT.OEV ---
[address] [phone] F: [phone] Occupational Therapy Evaluation Diagnosis: Right carpal tunnel syndrome. s/p CTR Date of Onset: Date of Surgery: 05/26/21 Attending Provider: Carlie Villasenor MD Prescribed Treatment: Eval and louis MD Follow Up Appointment: History of Current Condition: Pt underwent a right CTR and had a follow up on 06/08/21 for suture removal and was referred to OT. Pt was with report improving sensation and difficulty with making a fist due to hand swelling. 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 Pain with work task No exercise since covid.. Prior going to gym No hobbies Living Situation, Family and/or Social Support: Current Level of Function and Occupation Self Care, Employment, Leisure: Difficulty grabbing a gallon of milk, opening jars, use of a large knife due to weak grasp, heavy grocery bags Not lifting . No large, heavy pots or pans Sleep: Difficulty falling asleep unrelated to hands.. Driving: WNL Vision: Balance: Pain Assessment Pain Score: 5 Pain Scale Used: Numeric (0 - 10) Pain Location and Description: 5 at carpal scar Aggravating Factors: Pressure on the scar, making a fist Alleviating Factors: Skin and Soft Tissue Assessment Skin and Soft Tissue: Swelling Comments: Mild thenar edema Thin pink carpal scar tender with deep pressure Nerve assessment Ulnar Nerve: WFL Median Nerve: WFL Radial Nerve: WFL Comments: MMT Sensory Assessment Temperature: Light Touch: WNL Proprioception: Vibration: Comments: Edema Assessment Upper Extremity: Right Impaired Lower Extremity: Comments: Mild at right thenar ms Dexterity Assessment Dexterity: WNL Comments: Special Tests Comments: AROM(PROM) Strength Cervical Cervical Flexion: Cervical Extension: Cervical Lateral Flexion: Cervical Rotation: Comments: Shoulder Flexion: Extension: Abduction: Internal Rotation: External Rotation: Comments: Flexion: Extension: Abduction: Internal Rotation: External Rotation: Comments: Elbow Flexion: Extension: Pronation: Supination: Comments: Flexion: Extension: Pronation: Supination: Comments: Wrist Flexion: Extension: Ulnar Deviation: Radial Deviation: Comments: WNL Flexion: Extension: Ulnar Deviation: Radial Deviation: Comments: WFL bilaterally Thumb Thumb CMC Flexion: Thumb MCP Flexion: Thumb IP Flexion: Radial Abduction: Palmar Abduction: Ashley (Kapandji 0-10): Comments: WNL bilaterally Digits Index MCP: PIP: DIP: Long MCP: PIP: DIP: Ring MCP: PIP: DIP: Small MCP: PIP: DIP: Comments: WNL bilaterally Gross Grasp: R 15 lb....L 45 lb Lateral Pinch: R 8 L 11 Two-Point Pinch: R 6 L 7 Three-Jaw Tam: R 8 L 8 Comments: Complaint of pain with public address technician Patient Education Primary Language: Curb Machine Operator Required: No Current Knowledge: Minimal, needs reinforcement Teaching Method: Demonstration Handouts Verbal Education Needs Identified on Evaluation: Exercise Pain How did patient/family demonstrate learning? Patient demonstrates Patient verbalizes Barriers to Learning: None Readiness for Learning: Accepting Who was educated? 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, pt now is unable to wash heavy pots and pans and reports difficulty at home lifting things ie a gallon of milk due to pain Today presents with dec public address technician strength with pain and a Quick DASH score of 20 pts She will benefit from OT for improving pain and strength for inc ease with her daily activities STG Duration: 3 wks Short Term Goals: Demo indep with scar massage and desensitization Demo indep with HEP for strengthening Inc public address technician strength to > 25 lb Demo a safe lift up to 8 lb Quick DASH < 10 pts LTG Duration: 3 wks Entry Writer Goals: Same as above Frequency and Duration: The patient will be seen 2x wk x 3 wks Treatment Plan: Therapeutic Exercise Therapeutic Activity Home Exercise Program Patient Education Desensitization/Sensory Re-ed ADL Training Ultrasound Fluidotherapy Electronically Signed By: Park Cohen OT CHt CLT Reviewed/agree with student documentation: N/A Therapist: Please sign and return to therapist, Thank you for your referral.
--- NOTE | 2021-09-16 14:41 | MHC.OT.DC ---
[address] [phone] F: [phone] Occupational Therapy Discharge Note Provider: Carlie Villasenor Diagnosis: Right carpal tunnel syndrome. s/p CTR Date of Surgery: 05/26/21 Date of Evaluation: 08/26/21 Date of Discharge: 09/16/21 Treatments to Date: 4 Cancellations to Date: 1 No Shows to Date: Discharge Status: Achieved Goals Improved Function Independent with HEP Discharge Summary: Goals met for pain, improved sensation, inc hand strength and indep HEP. Right hand function improved with only mild difficulty with daily activities and assist at work with heavy tasks. Quick DASH score is 31 pts. I anticipate con't improvement in hand strength with her HEP and daily activities. Electronically Signed By: Park Cohen OT CHT CLT Reviewed/agree with student documentation: N/A Therapist: Please Sign and return to therapist, thank you for your referral.
== END 2021-09-16 14:41 | disposition home or self-care (01) ==
LOC: HO.OT 14:00
PROVIDERS: PCP Internal Medicine; Visit Provider Physician Assistant
DX: G56.01 Carpal tunnel syndrome, right upper limb (principal)
CPT/HCPCS: 97110; 97140; 97165

== ENCOUNTER 2022-01-12 08:04 | Outpatient (REF) | payer OTHER, SELFPAY ==
[2022-01-12 08:46] LABS: COVID-19 Test Negative (Negative); IDNOW Serial# 16C4AD1C
== END 2022-01-12 08:05 | disposition home or self-care (01) ==
LOC: HO.LAB 08:04
PROVIDERS: Visit Provider Internal Medicine
DX: Z20.822 Contact with and (suspected) exposure to COVID-19 (principal)
CPT/HCPCS: 87635; C9803

== ENCOUNTER → 2022-02-07 09:16 | Outpatient (BNVA) | payer OTHER, SELFPAY | PROVIDERS: PCP Internal Medicine; Visit Provider Orthopaedic Surgery | DX: G56.02 Carpal tunnel syndrome, left upper limb (principal) | CPT/HCPCS: 99212 ==

== ENCOUNTER 2022-06-14 08:02 | Outpatient (REF) | payer OTHER, SELFPAY ==
--- NOTE | ~2022-06-14 | MM_ITS ---
EXAMINATION: MM SCREENING DIGITAL BREAST TOMOSYNTHESIS, BILATERAL CLINICAL INFORMATION: Screening. Asymptomatic. Age 42. No prior breast imaging. No known family history breast cancer. The lifetime risk of breast cancer based on the Tyrer-Cuzick Model is 10%. COMPARISON: None (current study represents initial baseline exam). TECHNIQUE: Digital breast tomosynthesis is performed in both the craniocaudal and mediolateral oblique views along with computer-aided detection (CAD). Synthesized 2D images are generated from the tomosynthesis. Additional right CC view is provided. FINDINGS: There are scattered areas of fibroglandular density (ACR BI-RADS breast composition Category b). There are no significant masses, abnormal calcifications, or other abnormalities. No architectural abnormality. The axilla and skin contours are unremarkable. MM/MM tomosynthesis screening BI IMPRESSION: No mammographic evidence of malignancy. ASSESSMENT: BI-RADS 1: Negative RECOMMENDATION: Routine annual mammography screening. This patient's information was entered into a reminder system with a target due date for their next mammogram.
[2022-06-14 10:10] LABS: Alanine Aminotransferase 16 U/L (0-31); Alkaline Phosphatase 70 U/L (39-117); Anion Gap 11 (12-20); Aspartate Amino Transferase 15 U/L (5-31); Bilirubin Total 0.9 mg/dL (0.0-1.0); Blood Urea Nitrogen 14 mg/dL (9-16); Calcium 8.9 mg/dL (8.4-10.2); Carbon Dioxide 25 mmol/L (22-29); Chloride 109 mmol/L (96-108); Cholesterol 152 mg/dL; Estimated Glomerular Filt Rate > 60; Glucose Fasting 92 mg/dL (60-99); HDL Cholesterol 41 mg/dL; LDL Cholesterol Calculated 89 mg/dl; Potassium 4.2 mmol/L (3.3-5.1); Sodium 141 mmol/L (135-145); Total Protein 7.1 g/dL (6.5-8.0); Triglycerides 110 mg/dL
[2022-06-14 10:17] LABS: Thyroid Stimulating Hormone 1.51 uIU/mL (0.32-4.0)
== END 2022-06-14 08:03 | disposition home or self-care (01) ==
LOC: HO.MAMMO 08:02
PROVIDERS: PCP Internal Medicine; Visit Provider Internal Medicine
DX: Z00.00 Encounter for general adult medical examination without abnormal findings (principal); E66.9 Obesity, unspecified; Z12.31 Encounter for screening mammogram for malignant neoplasm of breast
CPT/HCPCS: 36415; 77063; 77067; 80053; 80061; 84443

== ENCOUNTER 2022-09-13 07:30 | Outpatient (REF) | payer OTHER, SELFPAY ==
--- NOTE | ~2022-09-13 | US_ITS ---
EXAMINATION: US ABDOMEN LIMITED CLINICAL INFORMATION: Umbilical hernia without obstruction or gangrene. COMPARISON: Ultrasound abdomen limited 08/31/2019 and 08/19/2019. CT abdomen and pelvis 08/27/2019. TECHNIQUE: Real-time imaging of the periumbilical abdomen. FINDINGS: Scanning in the periumbilical region demonstrates a hernia which appears to contain fat without definite bowel loop appreciated on provided imaging. The abdominal wall defect width is approximately 1.4 cm maximum diameter. No fluid is seen within the hernia sac. Within a vessel in the hernia sac, there is a monophasic waveform with peak systolic velocity of 13 cm/s. US/US abdomen limited IMPRESSION: Small apparently fat-containing umbilical hernia without fluid or definite signs of strangulation.
== END 2022-09-13 07:31 | disposition home or self-care (01) ==
LOC: HO.HMGCX 07:30
PROVIDERS: PCP Internal Medicine; Visit Provider Internal Medicine
DX: K42.9 Umbilical hernia without obstruction or gangrene (principal)
CPT/HCPCS: 76705

== ENCOUNTER → 2022-09-20 08:56 | Outpatient (BNVA) | payer OTHER, SELFPAY | PROVIDERS: PCP Internal Medicine; Referring Provider Internal Medicine; Visit Provider Nurse Practitioner ==

== ENCOUNTER → 2022-10-18 07:52 | Outpatient (BNVA) | payer OTHER, SELFPAY | PROVIDERS: PCP Internal Medicine; Visit Provider Nurse Practitioner ==

== ENCOUNTER 2022-11-29 08:02 | Outpatient (AMB) | payer OTHER, SELFPAY ==
--- NOTE | 2022-11-29 08:15 | A.OFFVIS_ITS ---
Intake Intake Visit Reasons: 4 week follow up Allergies No Known Allergies [No Known Allergies*] Allergy (Verified 10/18/22 08:05) HPI 4 week follow up HPI Details Assessment & Plan (1) Abdominal pain: ?Code(s): R10.9 - Unspecified abdominal pain ?Plan: BARBADIAN #jagjit We review her ultrasound and she does have an umbilical hernia but it is very small and filled with fat.? I give her my opinion this likely is not the cause of her pain and it would be a hard cell to convince the surgeon that this needs to be repaired.? She does admit that she has fecal urgency pros prandially and the pain seems to be worse when she is bloated..? She has never been treated for post cholecystectomy syndrome which likely is a contributing factor to her pain.? With this we will start her on Carafate 1 tablet a day and she can progress to 2 if needed.? If she does not tolerate this we could consider cholestyramine or Creon.? A good amount of time was spent educating her both about the hernia and about post cholecystectomy syndrome. She continues on her omeprazole 20 mg daily.? Return office visit in 4 weeks. (2) Post-cholecystectomy syndrome: ?Code(s): K91.5 - Postcholecystectomy syndrome (3) Umbilical hernia: ?Code(s): K42.9 - Umbilical hernia without obstruction or gangrene ? ? ? Medications: New sucralfate (Carafa te) 2 grams (2 x 1 gra m) PO .qhs 60 tabs 3RF K91.5 - Postcholec ystectomy syndrome , R10.9 - Unspecif ied abdominal pain ? TODAY'S VISIT MANUELA castro She had trouble swallowing the carafate and it helped a bit with her pain, but not with the post prandial urgency. I think we are on the right track, but we will switch to cholestyramine instead to promote better compliance and results. She was again educated, and she does confirm that her problems started after having the GB removed. If her pain still is troublesome then we reassess floor the role of her hernia or other contributing factors once we get postprandial urgency resolved. ROV 4 weeks. PFSH Medical History Anxiety and depression Carpal tunnel syndrome COVID-19 KAYLA (generalized anxiety disorder) Hand numbness Hernia Hospital discharge follow-up Kidney calculi Migraines Mild recurrent major depression Pelvic pain in female Post-COVID syndrome Shortness of breath Surgical History Hx of cholecystectomy S/P myomectomy Family History Family/Other No pertinent past medical history Father Lung cancer Mother Hypertension Diabetes Social History Housing: Apartment Alcohol intake: current Alcohol intake frequency: holidays/special occasions only Alcohol type: wine and hard liquor Patient Tobacco Use Status: Never used Tobacco e-Cigarette/Vaping Use: Never Used Second Hand Smoke Exposure: Yes service: No Current occupational status: employed 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 Current occupational exposures/hazards: No Cognitive needs: No Hearing needs: No Vision needs: No Review of Systems Const Denies fatigue, Denies fever(s), Denies night sweats, Denies poor appetite and Denies weight loss ENT Reports Normal hearing present, Denies dental pain, Denies dysphagia, Denies hearing loss, Denies mouth pain, Denies odynophagia, Denies throat swelling, Denies tongue swelling and Reports other (Dentition adequate) Card Reports no additional complaints Resp Reports no additional complaints GI Reports abdominal pain, Denies melena, Denies bloating, Denies hematochezia, Denies constipation, Denies GI cramping, Denies dysphagia, Denies excessive flatus, Denies early satiety, Denies heartburn, Reports diarrhea, Denies nausea, Denies odynophagia, Denies vomiting and Denies hematemesis Skin/Breast Denies pruritus, Denies lesions, Denies rash and Denies jaundice Neuro Reports Normal hearing present and Denies Abnormal speech present Endo Denies fatigue Aller/Immun Denies throat swelling and Denies tongue swelling Physical Exam Const General: cooperative, no acute distress, well developed and well groomed Nutritional Appearance: well nourished and obese Orientation/consciousness: oriented to person, oriented to place and oriented to time Limitations: No language barrier HEENT Head: Yes normocephalic and Yes atraumatic Eyes General: appearance normal, both eyes and all related structures Pupils: Equal, round and reactive pupils present Neck Neck: Yes normal visual inspection and Yes no lymphadenopathy Thyroid: Thyroid normal Resp Effort & Inspection: normal respiratory effort and able to speak in complete sentences Auscultation: clear to auscultation bilaterally Cardio Rate: regular rate Rhythm: regular rhythm Heart sounds: Normal, physiologic split S2 sound present Peripheral pulses: radial pulses present and posterior tibial pulses present GI Inspection: No distended, Yes Abdominal panniculus present and Yes obesity Palpation (GI): Soft to palpation, Tenderness to palpation present (GI) periumbi lically, no guarding, not rigid and No hepatosplenomegaly present Percussion: Yes normal to percussion Auscultation: normal bowel sounds Rectal Exam - Female: deferred Skin General skin exam: no rashes or lesions noted, turgor normal, skin not dry, no jaundice, No spider nevi and no striae Rashes: no rashes Nails: normal Neuro General: oriented to person, oriented to place and oriented to time Cranial nerves: Yes Equal, round and reactive pupils present and Yes Normal hearing present Speech: No Abnormal speech present Extrem General: Yes normal to inspection, No clubbing, No cyanosis and No edema Psych Appearance: grossly normal and well kempt Mental Status: mental status grossly normal Speech and movement: Normal speech and movement present Affect: normal affect Attitude: cooperative Thought process: Normal thought process present and not confabulating Thought content: Normal thought content present Insight: Limited insight present (Psych) Judgement: Limited judgement present (Psych) Assessment & Plan Assessment & Plan (1) Post-cholecystectomy syndrome: Code(s): K91.5 - Postcholecystectomy syndrome Plan: BARBADIAN #declines She had trouble swallowing the carafate and it helped a bit with her pain, but not with the post prandial urgency. I think we are on the right track, but we will switch to cholestyramine instead to promote better compliance and results. She was again educated, and she does confirm that her problems started after having the GB removed. If her pain still is troublesome then we reassess floor the role of her hernia or other contributing factors once we get postprandial urgency resolved. ROV 4 weeks. (2) Umbilical hernia: Code(s): K42.9 - Umbilical hernia without obstruction or gangrene (3) Abdominal pain: Code(s): R10.9 - Unspecified abdominal pain Medications: New cholestyramine-aspartame 4 gram (Cholestyramine Light) administer w/meal; avoid other meds within 1hr before or 4-6hr after dose 4 grams PO BID 231 grams 3RF K91.5 - Postcholecystectomy syndrome On Hold sucralfate (Carafate) Hold Comment: Doctor's Order 2 grams (2 x 1 gram) PO .qhs 60 tabs 3RF K91.5 - Postcholecystectomy syndrome, R10.9 - Unspecified abdominal pain Coding Level of Care Code Est Pt Level 3 (57204) Diagnoses Post-cholecystectomy syndrome K91.5 Umbilical hernia K42.9 Abdominal pain R10.9
== END 2022-11-29 08:38 | disposition home or self-care (01) ==
PROVIDERS: PCP Internal Medicine; Visit Provider Nurse Practitioner
DX: K91.5 Postcholecystectomy syndrome (principal); K42.9 Umbilical hernia without obstruction or gangrene; R10.9 Unspecified abdominal pain
CPT/HCPCS: 99213

== ENCOUNTER → 2022-11-29 08:02 | Outpatient (BNVA) | payer OTHER, SELFPAY | PROVIDERS: PCP Internal Medicine; Visit Provider Nurse Practitioner ==

== ENCOUNTER 2023-01-26 07:56 | Outpatient (AMB) | payer OTHER, SELFPAY ==
[2023-01-26 08:05] VITALS: BP 130/72; PULSE 90; O2SAT 95; BMI 40.3
--- NOTE | 2023-01-26 08:05 | A.OFFPC_ITS ---
Vital Signs 01/26/23 08:05 Height 4 ft 10 in Weight 193 lb BMI 40.3 BP 130/72 Blood Pressure Location Lt brachial Position Sitting Pulse 90 Pulse Source Pulse Oximeter Pulse Oximetry (%) 95 Oxygen Delivery Method Room Air Intake Visit Reasons: Follow up from Ultrasound results, Rash on arm and back Allergies No Known Allergies [No Known Allergies*] Allergy (Verified 01/26/23 08:05) Tobacco use date assessed: 05/18/22 Dental Screening Dental Screen Date: 01/26/23 Did you have a dental visit in the last 12 months?: No Did you have a dental problem in the last 6 months where you did not have access to dental care?: No Was dental information given to patient?: No HPI HPI Comments History of Present Illness Details 42-year-old female past medical history significant for GERD, anxiety, depression, CHAIM, asthma and umbilical hernia. Patient Dr. Spears today for follow-up visit for ultrasound results. Patient reports she was seen by [facility] as her and her are trying to have a baby. Patient reports had ultrasound completed on 01/18/23 [facility] ultrasound records obtain impressions states right tubal occlusion, filling defect in the right uterine horn, patent left fallopian tube. Patient advised she needs to follow- up her OBGYN or reproductive Medicine to review ultrasound results and review plan of care. [facility] Medical History Anxiety and depression Carpal tunnel syndrome COVID-19 KAYLA (generalized anxiety disorder) Hand numbness Hernia Hospital discharge follow-up Kidney calculi Migraines Mild recurrent major depression Pelvic pain in female Post-COVID syndrome Shortness of breath Surgical History Hx of cholecystectomy S/P myomectomy Family History Family/Other No pertinent past medical history Father Lung cancer Mother Hypertension Diabetes Social History Housing: Apartment Alcohol intake: current Alcohol intake frequency: holidays/special occasions only Alcohol type: wine and hard liquor Patient Tobacco Use Status: Never used Tobacco e-Cigarette/Vaping Use: Never Used Second Hand Smoke Exposure: Yes service: No Current occupational status: employed 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 1. Little interest or pleasure in doing things: not at all 2. Feeling down, depressed, or hopeless: not at all 3. Trouble falling or staying asleep, or sleeping too much: not at all 4. Feeling tired or having little energy: not at all 5. Poor appetite or overeating: not at all 6. Feeling bad about yourself - or that you are a failure or have let yourself or your family down: not at all 7. Trouble concentrating on things, such as reading the newspaper or watching television: not at all 8. Moving or speaking so slowly that other people could have noticed. Or the opposite - being so fidgety or restless that you have been moving around a lot more than usual: not at all 9. Thoughts that you would be better off or of hurting yourself in some way: not at all Total score: 0 Depression Screening Interpretation: Negative Depression Screening Done: Yes 79753 - PHQ-9 Billing: Yes Source: Developed by Drs. Jacoby Hahn, Efrem Pedro and colleagues, with an educational young from [employer]. Thrive Questionnaire Date Thrive assessed: 05/18/22 AUDIT C Alcohol Use Questionnaire (AUDIT-C) 1. How often do you have a drink containing alcohol?: Monthly or less 2. How many drinks containing alcohol do you have on a typical day when you are drinking?: 1 or 2 3. How often do you have six or more drinks on one occasion?: Never Total Score: 1 Score Reviewed/Action Taken: No KAYLA-7 AMB Questionnaire KAYLA-7 Date KAYLA - 7 assessed: 05/18/22 Source: Developed by Drs. Jacoby Hahn, Efrem Pedro and colleagues, with an educational young from [employer]. Review of Systems Const Denies chills, Denies fatigue, Denies fever(s) and Denies poor appetite Eyes Denies no additional complaints ENT Reports Normal hearing present Card Denies chest pain, Denies syncope, Denies rapid heart rate and Denies dyspnea Resp Denies cough and Denies dyspnea GI Denies change in stool character, Denies constipation, Denies diarrhea, Denies nausea and Denies vomiting Denies urinary frequency, Denies dysuria and Denies urinary urgency Neuro Reports Normal hearing present, Denies confusion and Denies syncope Psych Denies confusion Endo Denies fatigue Physical exam (Primary Care) Vital Signs: Last Vital Signs Pulse 90 01/26/23 08:05 BP 130/72 01/26/23 08:05 Pulse Ox 95 01/26/23 08:05 Oxygen Delivery Method Room Air 01/26/23 08:05 BMI result Body Mass Index 40.3 Tobacco/Smoking Status: Tobacco use Status Tobacco use date assessed 05/18/22 01/26/23 08:09 Patient Tobacco Use Status Never used Tobacco 01/26/23 08:09 e-Cigarette/Vaping Use Never Used 01/26/23 08:09 PHQ-9: PHQ-9 Score PHQ-9: Total score 0 01/26/23 08:10 Depression Screening Interpretation: Negative Thrive Assessment: Date of Thrive Assessment Date Thrive assessed 05/18/22 01/26/23 08:09 Const General: No confusion Orientation/consciousness: No confusion HENMT Head: Yes normocephalic and Yes atraumatic Eyes Conjunctivae: conjunctivae normal Chest Chest palpation & inspection: normal inspection of the chest Resp Effort & Inspection: normal respiratory effort Auscultation: clear to auscultation bilaterally, no crackles, no rhonchi and no wheezes Cardio Rate: regular rate Rhythm: regular rhythm Heart sounds: S1 normal heart sound present and S2 normal heart sound present GI Inspection: Yes normal to inspection Neuro General: No confusion Cranial nerves: Yes Normal hearing present Extrem General: No edema Office Procedures Flu Questionnaire Does the patient have a severe egg allergy?: No Does the patient have severe life threatening allergies?: No Does the patient have a fever or illness today?: No Has the patient ever had Guillain-Paris Syndrome?: No Has the patient ever had any past reaction to a flu shot?: No Immunizations flu vacc [id number] 6mos up(PF) 60 mcg(15 mcgx4)/0.5 mL IM syringe Performing Provider: BÁRBARA Canales [facility] [place] [facility] Administered by: Amaris Bryant CMA on 01/26/23 08:10 Dose Route Admin Location Dispensed Lot Number Expiration Date [employer] 0.5 mL IM Left Deltoid 0.5 mL [id number] 10/14/23 73504-848-90 Novel VIS Given Date VIS Provided VIS Publication Date 01/26/23 Single Vaccine 20 Eligibility Eligibility Date Funding Source Not [facility] Eligible 01/26/23 Private Assessment and Plan Assessment & Plan (1) Follow-up examination: Code(s): Z09 - Encounter for follow-up examination after completed treatment for conditions other than malignant neoplasm Plan: Patient advised to follow-up with OBGYN her reproductive Medicine for further review of ultrasound results and plan of care. Patient verbalizes understanding. Orders: Orders Influenza [id number] Immunization Today Z23 - Encounter for immunization Coding Level of Care Code Est Pt Level 3 (53109) Diagnoses Follow-up examination Z09
== END 2023-01-26 08:37 | disposition home or self-care (01) ==
PROVIDERS: PCP Internal Medicine; Visit Provider Nurse Practitioner Family
DX: Z09 Encounter for follow-up examination after completed treatment for conditions other than malignant neoplasm (principal); Z23 Encounter for immunization
CPT/HCPCS: 90471; 90686; 99213

== ENCOUNTER 2023-02-20 08:26 | Emergency (ER) | payer OTHER, SELFPAY ==
[2023-02-20 08:27] VITALS: BP 139/89; PULSE 95; RESP 18; TEMP 36.1; O2SAT 99; BMI 37.6
--- NOTE | 2023-02-20 09:34 | ED.EYEPROB ---
HPI - Eye Problem General Chief complaint: Eye Problems Stated complaint: Swollen eyes Time Seen by Provider: 02/20/23 09:24 Source: patient and RN notes reviewed Mode of arrival: ambulatory Limitations: no limitations History of Present Illness HPI Narrative: This is a 43-year-old female, with a history of asthma, presenting to the emergency department today with complaints of bilateral eye swelling since yesterday. 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 She reports that she had a sleep itchiness to her. She woke up this morning and noticed some swelling around both of her eyes. Denies any drainage. Denies visual, eye pain, eye redness, or eye irritation. She states that her symptoms are just around her bilateral eyes. She does not wear contact lenses. Denies fevers or chills. She has a history of seasonal allergies typically in the spring time. She states that her symptoms feel like allergy she has had a past. No other complaints or concerns at this time. Onset (ago): day(s) Onset description: gradual Duration: constant Mechanism: none Associated symptoms: none Treatments Prior to Arrival: none Related Data Home Medications Medication Instructions Recorded Confirmed omeprazole 20 mg capsule,delayed 20 mg PO DAILY 04/29/20 08/17/22 release vitamin with calcium 1 tab PO DAILY 07/26/21 08/17/22 no.72-iron 27 mg-folic acid 1 mg tablet ( Vitamins Plus Low Iron) Previous Rx's Medication Instructions Recorded calcium carbonate 500 mg calcium 500 mg PO DAILY #30 tabs 07/06/20 (1,250 mg) tablet [id number]-[id number]-ghmagxiw 1 cap PO Q4-6H PRN headache #14 05/18/22 50 mg-300 mg-40 mg capsule caps (Fioricet) fluticasone propionate 50 1 spray intranasal DAILY #100 mL 07/02/22 mcg/actuation nasal spray,suspension (Flonase Allergy Relief) prednisone 20 mg tablet 20 mg PO DAILY 5 days #5 tabs 08/17/22 Symbicort 160 mcg-4.5 2 puff PO BID #30.6 ea 09/13/22 mcg/actuation HFA aerosol inhaler (budesonide-formoterol) sucralfate 1 gram tablet (Carafate) 2 g (2 x 1 gram) PO .qhs #60 tabs 10/18/22 cholestyramine-aspartame 4 gram 4 g PO BID #231 grams 11/29/22 oral powder (Cholestyramine Light) diphenhydramine HCl 25 mg tablet 50 mg (2 x 25 mg) PO Q6-8H PRN 02/20/23 (Benadryl Allergy) allergic reaction #14 tabs loratadine 10 mg tablet (Claritin) 10 mg PO DAILY #30 tabs 02/20/23 prednisone 20 mg tablet 20 mg PO DAILY 5 days #5 tabs 02/20/23 Allergies Allergy/AdvReac Type Severity Reaction Status Date / Time No Known Allergies Allergy Verified 02/20/23 08:30 [No Known Allergies*] Review of Systems Review of Systems: Yes all other systems are reviewed and are negative Constitutional: Constitutional: Reports as per [facility] Past Medical History Attestation statement: The following information was validated with the patient. Medical History Anxiety and depression Carpal tunnel syndrome COVID-19 KAYLA (generalized anxiety disorder) Hand numbness Hernia Hospital discharge follow-up Kidney calculi Migraines Mild recurrent major depression Pelvic pain in female Post-COVID syndrome Shortness of breath Surgical History Hx of cholecystectomy S/P myomectomy Family History Family History Family/Other No pertinent past medical history Father Lung cancer Mother Hypertension Diabetes Social History Social History Housing: Apartment Alcohol intake: current Alcohol intake frequency: holidays/special occasions only Alcohol type: wine and hard liquor Patient Tobacco Use Status: Never used Tobacco e-Cigarette/Vaping Use: Never Used Second Hand Smoke Exposure: Yes Advance Directives: No service: No Current occupational status: employed 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 Current occupational exposures/hazards: No Cognitive needs: No Hearing needs: No Vision needs: No Physical Exam Vital Signs: Vital Signs: Last Vital Signs Temp 97.0 F 02/20/23 08:27 Pulse 95 02/20/23 08:27 Resp 18 02/20/23 08:27 BP 139/89 02/20/23 08:27 Pulse Ox 99 02/20/23 08:27 O2 Del Method Room Air 02/20/23 08:27 BMI result Body Mass Index 37.6 Const: General: cooperative, comfortable and no acute distress Orientation/consciousness: patient oriented x3 Limitations: no limitations HEENT: Head: Yes normal to inspection, Yes normocephalic and Yes atraumatic Ears: hearing grossly normal bilaterally General nose exam: Normal external nose present Face and sinus: Yes normal facial exam Mouth: Normal oral and palatal mucosa present, oropharynx normal and moist mucous membranes Throat: Yes posterior oropharynx normal Eyes: Other: Bilateral eyes, no conjunctival injection, no drainage. Pupils are equal. Extraocular movements intact. No eye pain with EOM. General: appearance normal, both eyes and all related structures Eyelids: Yes eyelids normal Conjunctivae: conjunctivae normal Sclerae: sclerae normal Pupils: Equal, round and reactive pupils present EOM: EOMs intact bilaterally Neck: Neck: Yes normal visual inspection, Yes full ROM and Yes no lymphadenopathy Lymphatic: no lymphadenopathy noted Chest: Chest palpation & inspection: normal inspection of the chest Resp: Effort & Inspection: normal respiratory effort and able to speak in complete sentences Auscultation: clear to auscultation bilaterally, no crackles, no rales, no rhonchi and no wheezes Cardio: Rate: regular rate Rhythm: regular rhythm Heart sounds: S1 normal heart sound present and S2 normal heart sound present GI: Inspection: Yes normal to inspection Skin: General skin exam: no rashes or lesions noted Trauma: no lacerations or abrasions Wounds: no wounds Neuro: General: patient oriented x3 and moves all extremities Cranial nerves: Yes Equal, round and reactive pupils present Extrem: General: Yes normal to inspection Right upper extremity: normal to inspection Left upper extremity: normal to inspection Right lower extremity: normal to inspection Left lower extremity: normal to inspection Medical Decision Making Medical Decision Making MDM Narrative: This is a 43-year-old female presenting to the emergency department with complaints of bilateral eye swelling since yesterday. On arrival, vital signs within normal limits. Physical exam findings concerning for allergic. Patient has no conjunctival injection, drainage 5 0 pain, erythema or warmth. No evidence of stye or hordeolum. She has no changes in her vision. She has a history of similar symptoms typically in the spring time which is consistent with her allergies. Foreign body sensation therefore fluorescein stain not performed today. Given examination findings, will treat as allergic with Benadryl, Claritin, and low-dose prednisone. Patient given strict return precautions. The visual acuity intact. Differential Diagnosis Differential Diagnoses: The differential diagnosis associated with the presentation includes Orbital cellulitis, periorbital cellulitis, hordeolum, allergic Discharge Plan Discharge Clinical Impression: Acute allergic conjunctivitis of both eyes Patient Disposition: Home, Self-Care Instructions: Conjunctivitis (ED) Additional Instructions: You presented to the emergency department due to swelling around her eyes. This appears to be allergic. Please take prescribed Claritin, prednisone. You may take Benadryl as needed for symptoms. If you develop any new or worsening symptoms including but not limited to chest pain, shortness of breath, difficulty swallowing or breathing, changes in vision, eye pain please return for re-evaluation. Prescriptions: New diphenhydramine HCl [Benadryl Allergy] 25 mg tablet 50 mg PO Q6-8H PRN (Reason: allergic reaction) Qty: 14 0RF loratadine [Claritin] 10 mg tablet 10 mg PO DAILY Qty: 30 0RF prednisone 20 mg tablet 20 mg PO DAILY 5 Days Qty: 5 0RF No Action calcium carbonate 500 mg calcium (1,250 mg) tablet 500 mg PO DAILY Qty: 30 0RF fluticasone propionate [Flonase Allergy Relief] 50 mcg/actuation spray,suspension 1 spray intranasal DAILY Qty: 100 0RF Rx Instructions: administer into each nostril budesonide-formoterol [Symbicort] 160-4.5 mcg/actuation HFA aerosol inhaler 2 puff PO BID Qty: 30.6 1RF omeprazole 20 mg capsule,delayed release(DR/EC) 20 mg PO DAILY Vitamin Plus Low Iron 27 mg iron- 1 mg tablet 1 tab PO DAILY [id number]-[id number] [Fioricet] 50-300-40 mg capsule 1 cap PO Q4-6H PRN (Reason: headache) Qty: 14 0RF prednisone 20 mg tablet 20 mg PO DAILY 5 Days Qty: 5 0RF Cholestyramine Light 4 gram powder 4 g PO BID Qty: 231 3RF Rx Instructions: administer w/meal; avoid other meds within 1hr before or 4-6hr after dose sucralfate [Carafate] 1 gram tablet 2 g PO .qhs Qty: 60 3RF Hold Instructions: Doctor's Order Stand Alone Forms: Work/School Release
== END 2023-02-20 09:52 | disposition home or self-care (01) ==
PROVIDERS: Emergency Provider Student in an Organized Health Care Education/Training Program; PCP Internal Medicine
DX: H10.13 Acute atopic conjunctivitis, bilateral (principal)
CPT/HCPCS: 99282; 99283

== ENCOUNTER 2023-04-23 14:26 | Outpatient (AMB) | payer OTHER, SELFPAY ==
--- NOTE | 2023-04-23 14:31 | MHC.PC.OV ---
Vital Signs 04/23/23 14:32 Height 4 ft 10 in Weight 192 lb BMI 40.1 BP 136/80 Blood Pressure Location Lt brachial Position Sitting Intake Visit Reasons: Follow up on asthma Intake Note: Patient here for a follow Asthma Application Development Liaison Required: No Accompanied by: Self / Same As Patient Allergies No Known Allergies [No Known Allergies*] Allergy (Verified 04/23/23 14:43) Medication List - Last Reconciled 04/23/23 by Cait Ellis MD [id number] 50-300-40 mg (Fioricet) 1 cap PO Q4-6H PRN calcium carbonate 500 mg PO DAILY cholestyramine-aspartame 4 gram (Cholestyramine Light) 4 grams PO BID diphenhydramine HCl (Benadryl Allergy) 50 mg (2 x 25 mg) PO Q6-8H PRN fluticasone propionate 50 mcg/actuation (Flonase Allergy Relief) 1 spray intranasal DAILY loratadine (Claritin) 10 mg PO DAILY omeprazole 20 mg PO DAILY PNV,calcium 59-spim-rwowz acid 27 mg iron- 1 mg ( Vitamins Plus Low Iron) 1 tab PO DAILY prednisone 20 mg PO DAILY 5 days prednisone 20 mg PO DAILY 5 days sucralfate (Carafate) 2 grams (2 x 1 gram) PO .qhs Symbicort 160-4.5 mcg/actuation (budesonide-formoterol) 2 puffs PO BID NS Tobacco use date assessed: 04/23/23 Dental Screening Dental Screen Date: 04/23/23 Did you have a dental visit in the last 12 months?: No Did you have a dental problem in the last 6 months where you did not have access to dental care?: No Was dental information given to patient?: Patient has dentist HPI HPI Comments History of Present Illness Details This is a 43 year old female with moderate asthma, GERD, rhinitis and morbid obesity that comes today for follow-up on her conditions. Use rescue inhaler at least once a month. GERD stable with PPIs. Rhinitis stable with antihistamines as needed. She is morbidly obese with a BMI of 40.1 and was advised to diet and exercise as tolerated to reach BMI goal less than 30. No chest pain or shortness of breath. [facility] Medical History (Updated 04/23/23 @ 15:19 by Cait Ellis MD) Pelvic pain in female Carpal tunnel syndrome KAYLA (generalized anxiety disorder) Mild recurrent major depression Hand numbness Anxiety and depression Hospital discharge follow-up Post-COVID syndrome Hernia COVID-19 Migraines Shortness of breath Kidney calculi Surgical History S/P myomectomy Hx of cholecystectomy Family History Family/Other No pertinent past medical history Father Lung cancer Mother Hypertension Diabetes Social History Housing: Apartment Alcohol intake: current Alcohol intake frequency: holidays/special occasions only Alcohol type: wine and hard liquor Patient Tobacco Use Status: Never used Tobacco e-Cigarette/Vaping Use: Never Used Second Hand Smoke Exposure: Yes service: No Current occupational status: employed 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 1. Little interest or pleasure in doing things: not at all 2. Feeling down, depressed, or hopeless: not at all 3. Trouble falling or staying asleep, or sleeping too much: not at all 4. Feeling tired or having little energy: not at all 5. Poor appetite or overeating: not at all 6. Feeling bad about yourself - or that you are a failure or have let yourself or your family down: not at all 7. Trouble concentrating on things, such as reading the newspaper or watching television: not at all 8. Moving or speaking so slowly that other people could have noticed. Or the opposite - being so fidgety or restless that you have been moving around a lot more than usual: not at all 9. Thoughts that you would be better off or of hurting yourself in some way: not at all Total score: 0 Depression Screening Interpretation: Negative Depression Screening Done: Yes 51113 - PHQ-9 Billing: Yes Source: Developed by Drs. Jacoby Hahn, Swati B.W. Efrem Baltazar and colleagues, with an educational young from [employer]. Thrive Questionnaire Date Thrive assessed: 04/23/23 I am a: Patient What is your living situation today?: I have a steady place to live Within the past 12 months, did the food you bought not last and you didn't have the money to get more?: Never true Within the past 12 months, did you worry whether your food would run out before you got money to buy more?: Never true Do you have trouble paying for medicines?: No Do you have trouble getting transportation to medical appointments?: No Do you have trouble paying your heating and electricity bill?: No Do you have trouble taking care of your child, family member or friend?: No Do you have trouble with day-to-day activities such as bathing, preparing meals, shopping, managing finances, etc.?: No Are you currently unemployed and looking for a job?: No Are you interested in more education?: No Please select the resources that you would like help with: None Currently or been in a relationship where the following occur: no concerns reported AUDIT C Alcohol Use Questionnaire (AUDIT-C) 1. How often do you have a drink containing alcohol?: Monthly or less 2. How many drinks containing alcohol do you have on a typical day when you are drinking?: 1 or 2 3. How often do you have six or more drinks on one occasion?: Never Total Score: 1 KAYLA-7 AMB Questionnaire KAYLA-7 Date KAYLA - 7 assessed: 04/23/23 Feeling nervous, anxious, or on edge: 0 = Not at all Not being able to stop or control worryin = Not at all Worrying too much about different things: 0 = Not at all Trouble relaxin = Not at all Being so restless that it is hard to sit still: 0 = Not at all Becoming easily annoyed or irritable: 0 = Not at all Feeling afraid as if something awful might happen: 0 = Not at all Total KAYLA-7 score (0-4 normal; 5-9 mild; 10-14 moderate; 15-21 severe): 0 Source: Developed by Drs. Jacoby Hahn, Efrem Pedro and colleagues, with an educational young from [employer]. KAYLA-7 Assessment Billing KAYLA-7 Assessment Tool: KAYLA-7 Assessment 17621 Review of Systems Const All systems reviewed & are unremarkable except as noted in HPI and below Eyes Reports no additional complaints, Denies change in vision and Denies other visual disturbances Card Denies chest pain at rest, Denies chest pain with activity, Denies edema, Denies irregular heart rhythm, Denies claudication, Denies dyspnea, Denies dyspnea on exertion, Denies orthopnea, Denies paroxysmal nocturnal dyspnea and Denies slow heart rate Resp Denies cough, Denies dyspnea and Denies dyspnea on exertion GI Denies abdominal pain, Denies change in bowel habits, Denies excessive flatus, Denies nausea and Denies vomiting Denies urinary incontinence, Denies urinary hesitancy and Denies urinary urgency Musc Denies abnormal gait, Denies atrophy, Denies deformity and Denies limited range of motion Skin/Breast Denies bleeding lesions, Denies changing lesions and Denies rash Neuro Denies abnormal gait, Denies behavioral changes and Denies lack of coordination Psych Denies behavioral changes Physical exam (Primary Care) Vital Signs: Last Vital Signs BP 136/80 04/23/23 14:32 BMI result Body Mass Index 40.1 Tobacco/Smoking Status: Tobacco use Status Tobacco use date assessed 04/23/23 04/23/23 14:36 Patient Tobacco Use Status Never used Tobacco 04/23/23 14:36 e-Cigarette/Vaping Use Never Used 04/23/23 14:36 PHQ-9: PHQ-9 Score PHQ-9: Total score 0 04/23/23 14:46 Depression Screening Interpretation: Negative Thrive Assessment: Date of Thrive Assessment Date Thrive assessed 04/23/23 04/23/23 14:36 Currently or been in a relationship where the following occur: no concerns reported Eyes General: appearance normal, both eyes and all related structures Eyelids: Yes eyelids normal Conjunctivae: conjunctivae normal Neck Neck: Yes normal visual inspection and Yes supple Resp Effort & Inspection: normal respiratory effort Auscultation: clear to auscultation bilaterally Cardio Jugular venous distension: no JVD Rate: regular rate Rhythm: regular rhythm Heart sounds: S1 normal heart sound present and S2 normal heart sound present Extrem General: Yes full ROM Assessment and Plan Assessment & Plan (1) Morbid obesity: Code(s): E66.01 - Morbid (severe) obesity due to excess calories Plan: Start diet and exercise. BMI goal is less than 30. Patient declines weight loss surgery. (2) Rhinitis: Code(s): J31.0 - Chronic rhinitis Plan: Continue antihistamines as needed. (3) GERD (gastroesophageal reflux disease): Code(s): K21.9 - Gastro-esophageal reflux disease without esophagitis Qualifiers: Esophagitis presence: esophagitis presence not specified Qualified Code(s): K21.9 - Gastro-esophageal reflux disease without esophagitis Plan: Continue PPIs as needed. (4) Moderate asthma: Code(s): J45.909 - Unspecified asthma, uncomplicated Qualifiers: Asthma persistence: persistent Asthma complication type: uncomplicated Qualified Code(s): J45.40 - Moderate persistent asthma, uncomplicated Plan: Continue Symbicort. Use rescue inhaler as needed. Orders: Orders Thyroid Stimulating Hormone Today E66.01 - Morbid (severe) obesity due to excess calories Lipid Panel Today E78.5 - Hyperlipidemia, unspecified Comprehensive [place]. Panel Fast Today E66.01 - Morbid (severe) obesity due to excess calories Complete Blood Count Auto Diff Today E66.01 - Morbid (severe) obesity due to excess calories Coding Level of Care Code Est Pt Level 4 (70908) Diagnoses Morbid obesity E66.01 Rhinitis J31.0 Gastroesophageal reflux disease, unspecified whether esophagitis present K21.9 Esophagitis presence: esophagitis presence not specified Moderate persistent asthma without complication J45.40 Asthma persistence: persistent Asthma complication type: uncomplicated Additional Codes KAYLA-7 Assessment Billing - KAYLA-7 Assessment Tool: KAYLA-7 Assessment 59284 ([id number]) Time Spent (min) 23
[2023-04-23 14:32] VITALS: BP 136/80; BMI 40.1
== END 2023-04-23 15:00 | disposition home or self-care (01) ==
PROVIDERS: PCP Internal Medicine; Visit Provider Internal Medicine
DX: J45.40 Moderate persistent asthma, uncomplicated (principal); K21.9 Gastro-esophageal reflux disease without esophagitis; E66.01 Morbid (severe) obesity due to excess calories; Z68.41 Body mass index [BMI] 40.0-44.9, adult
CPT/HCPCS: 99214

== ENCOUNTER 2023-05-18 14:19 | Outpatient (AMB) | payer OTHER, SELFPAY ==
[2023-05-18 15:05] VITALS: BP 128/78; PULSE 98; O2SAT 100; BMI 40.3
--- NOTE | 2023-05-18 15:05 | MHC.OFFVIS ---
Intake Vital Signs 05/18/23 15:05 Height 4 ft 10 in Weight 192 lb 14.472 oz BMI 40.3 BP 128/78 Blood Pressure Location Rt brachial Position Sitting Pulse 98 Pulse Source Doppler Pulse Oximetry (%) 100 Oxygen Delivery Method Room Air Intake Visit Reasons: Asthma follow-up Allergies No Known Allergies [No Known Allergies*] Allergy (Verified 05/18/23 15:08) HPI Asthma follow-up HPI Details 43-year-old lady, previously followed for asthma and moderate obstructive sleep apnea, lost to follow-up for approximately 3 years now returns to reestablish care. Patient states that her asthma symptoms are well controlled when she uses Symbicort and albuterol MDI. She has not been using CPAP, but she wants to restart using it. [facility] Medical History Pelvic pain in female Carpal tunnel syndrome KAYLA (generalized anxiety disorder) Mild recurrent major depression Hand numbness Anxiety and depression Hospital discharge follow-up Post-COVID syndrome Hernia COVID-19 Migraines Shortness of breath Kidney calculi Surgical History S/P myomectomy Hx of cholecystectomy Family History Family/Other No pertinent past medical history Father Lung cancer Mother Hypertension Diabetes Social History Housing: Apartment Alcohol intake: current Alcohol intake frequency: holidays/special occasions only Alcohol type: wine and hard liquor Patient Tobacco Use Status: Never used Tobacco e-Cigarette/Vaping Use: Never Used Second Hand Smoke Exposure: Yes service: No Current occupational status: employed 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 Current occupational exposures/hazards: No Cognitive needs: No Hearing needs: No Vision needs: No Review of Systems Const Denies daytime sleepiness, Denies excessive sweating, Denies fatigue, Denies fever(s), Denies lethargy, Denies malaise, Denies night sweats, Denies snoring and Denies weight loss Eyes Denies blurry vision and Denies itchy eyes ENT Denies nasal congestion, Denies post nasal drip, Denies sinus pain, Denies sinus pressure and Denies other ( Thrush) Card Denies chest pain, Denies pedal edema, Denies dyspnea, Denies orthopnea and Denies paroxysmal nocturnal dyspnea Resp Denies cough, Denies hemoptysis, Denies excessive phlegm production, Denies dyspnea, Denies snoring and Denies wheezing GI Denies abdominal pain and Denies heartburn Musc Denies myalgias, Denies arthralgias and Denies joint swelling Skin/Breast Denies rash Neuro Denies memory loss and Denies seizure-like activity Psych Denies abnormal sleep pattern, Denies anxiety and Denies memory loss Endo Denies excessive sweating, Denies fatigue and Denies heat intolerance Merritt/Lymph Denies easy bruising Aller/Immun Denies itchy eyes, Denies seasonal rhinorrhea and Denies wheezing Physical Exam Vital Signs: Last Vital Signs Pulse 98 05/18/23 15:05 BP 128/78 05/18/23 15:05 Pulse Ox 100 05/18/23 15:05 Oxygen Delivery Method Room Air 05/18/23 15:05 BMI result Body Mass Index 40.3 Const General: no acute distress and alert Nutritional Appearance: not obese Orientation/consciousness: Other orientation findings ( oriented) HEENT Head: Yes atraumatic Eyes General: appearance normal, both eyes and all related structures Sclerae: sclerae normal EOM: EOMs intact bilaterally Neck Neck: Yes supple Lymphatic: no lymphadenopathy noted Resp Effort & Inspection: normal respiratory effort and no use of accessory muscles Auscultation: clear to auscultation bilaterally Cardio Rate: regular rate Rhythm: regular rhythm Heart sounds: no gallops, no murmurs and no rubs Skin General skin exam: other ( warm) Extrem General: No clubbing, No cyanosis and No edema Assessment & Plan Assessment & Plan (1) Moderate asthma: Code(s): J45.909 - Unspecified asthma, uncomplicated Qualifiers: Asthma persistence: persistent Asthma complication type: uncomplicated Qualified Code(s): J45.40 - Moderate persistent asthma, uncomplicated Plan: Well controlled on Symbicort and albuterol MDI. Restart Symbicort. Continue albuterol MDI. (2) CHAIM (obstructive sleep apnea): Code(s): G47.33 - Obstructive sleep apnea (adult) (pediatric) Plan: Patient wants to restart using CPAP. Fullface mask provided. Medications: New albuterol sulfate 90 mcg/actuation 2 puffs inhalation Q4-6H PRN 1 ea 0RF shortness of breath or wheezing Changed From Symbicort 160-4.5 mcg/actuation (budesonide-formoterol) 2 puffs PO BID 30.6 ea 1RF NS R06.00 - Dyspnea, unspecified To Symbicort 160-4.5 mcg/actuation (budesonide-formoterol) 2 puffs PO BID 1 ea 12RF 30 days NS R06.00 - Dyspnea, unspecified Coding Level of Care Code Est Pt Level 4 (28777) Diagnoses Moderate persistent asthma without complication J45.40 Asthma persistence: persistent Asthma complication type: uncomplicated CHAIM (obstructive sleep apnea) G47.33
== END 2023-05-18 15:16 | disposition home or self-care (01) ==
PROVIDERS: PCP Internal Medicine; Visit Provider Internal Medicine Pulmonary Disease
DX: J45.40 Moderate persistent asthma, uncomplicated (principal); G47.33 Obstructive sleep apnea (adult) (pediatric)
CPT/HCPCS: 99214

== ENCOUNTER → 2023-05-18 14:19 | Outpatient (BNVA) | payer OTHER, SELFPAY | PROVIDERS: PCP Internal Medicine; Visit Provider Internal Medicine Pulmonary Disease ==

== ENCOUNTER 2023-05-22 08:08 | Outpatient (REF) | payer OTHER, SELFPAY ==
[2023-05-22 08:31] LABS: MANUAL DIFF FLAG NO
[2023-05-22 09:02] LABS: Basophils Absolute Auto 0.1 X10*3/uL (0.0-0.2); Basophils Percent Auto 0.7 % (0-2); Eosinophils Absolute Auto 0.2 X10*3/uL (0.0-0.4); Eosinophils Percent Auto 2.4 % (0-4); Hematocrit 39.9 % (37.0-47.0); Hemoglobin 13.1 g/dl (12.0-16.0); Imm Gran Abs Auto 0.02 X10*3/uL (0.00-0.03); Imm Gran Pct Auto 0.3 % (0.0-0.4); Lymphocytes Absolute Auto 2.1 X10*3/uL (1.2-4.9); Lymphocytes Percent Auto 28.3 % (20-40); Mean Corpuscular HGB Conc 32.8 g/dl (31.0-35.0); Mean Corpuscular Hemoglobin 28.5 pg (27.0-33.0); Mean Corpuscular Volume 86.7 fL (80.0-98.0); Mean Platelet Volume 9.5 fL (9.4-12.3); Monocytes Absolute Auto 0.6 X10*3/uL (0.1-1.2); Monocytes Percent Auto 7.3 % (2-11); Neutrophils Absolute Auto 4.6 x10*3/uL (2.0-8.3); Platelet Count 360 X10*3/uL (160-400); Red Cell Distribution Width 14.1 % (11.0-16.0); White Blood Count 7.6 X10*3/uL (4.8-10.8)
[2023-05-22 09:30] LABS: Alanine Aminotransferase 16 U/L (0-31); Albumin Level 3.7 g/dL (3.5-5.0); Alkaline Phosphatase 66 U/L (39-117); Anion Gap 13 (12-20); Aspartate Amino Transferase 14 U/L (5-31); Bilirubin Total 0.5 mg/dL (0.0-1.0); Blood Urea Nitrogen 13 mg/dL (9-16); Calcium 8.4 mg/dL (8.4-10.2); Carbon Dioxide 21 mmol/L (22-29); Chloride 110 mmol/L (96-108); Cholesterol 128 mg/dL (<200); Estimated Glomerular Filt Rate > 60; Glucose Fasting 96 mg/dL (60-99); HDL Cholesterol 39 mg/dL (>40); LDL Cholesterol Calculated 61 mg/dL (<100); Potassium 3.7 mmol/L (3.3-5.1); Sodium 140 mmol/L (135-145); Total Protein 7.3 g/dL (6.5-8.0); Triglycerides 140 mg/dL (<150)
[2023-05-22 09:48] LABS: Thyroid Stimulating Hormone 2.37 uIU/mL (0.32-4.0)
== END 2023-05-22 08:09 | disposition home or self-care (01) ==
LOC: HO.LAB 08:08
PROVIDERS: PCP Internal Medicine; Visit Provider Internal Medicine
DX: E78.5 Hyperlipidemia, unspecified (principal); E66.01 Morbid (severe) obesity due to excess calories
CPT/HCPCS: 36415; 80053; 80061; 84443; 85025

== ENCOUNTER 2023-06-04 08:02 | Outpatient (AMB) | payer OTHER, SELFPAY ==
[2023-06-04 08:24] VITALS: BP 130/86; BMI 39.3
--- NOTE | 2023-06-04 08:24 | MHC.PC.OV ---
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 Accompanied by: Self / Same As Patient Allergies No Known Allergies [No Known Allergies*] Allergy (Verified 06/04/23 08:54) Medication List - Last Reconciled 06/04/23 by Cait Ellis MD [id number] 50-300-40 mg (Fioricet) 1 cap PO Q4-6H PRN calcium carbonate 500 mg PO DAILY diphenhydramine HCl (Benadryl Allergy) 50 mg (2 x 25 mg) PO Q6-8H PRN fluticasone propionate 50 mcg/actuation (Flonase Allergy Relief) 1 spray intranasal DAILY loratadine (Claritin) 10 mg PO DAILY omeprazole 20 mg PO DAILY PNV,calcium 70-njrj-gubwb acid 27 mg iron- 1 mg ( Vitamins Plus Low Iron) 1 tab PO DAILY Symbicort 160-4.5 mcg/actuation (budesonide-formoterol) 2 puffs PO BID 30 days NS Tobacco use date assessed: 04/23/23 Dental Screening Dental Screen Date: 06/04/23 Did you have a dental visit in the last 12 months?: No Did you have a dental problem in the last 6 months where you did not have access to dental care?: No Was dental information given to patient?: Patient has dentist HPI HPI Comments History of Present Illness Details This is a 43-year-old female that comes for her physical exam. Last mammogram was 2022 and already has an appointment for 06/20/2023. Pap smear as per patient is scheduled for the fall with [facility]. No chest pain or shortness of breath. [facility] Medical History (Updated 06/04/23 @ 09:22 by Cait Ellis MD) Morbid obesity Pelvic pain in female Carpal tunnel syndrome KAYLA (generalized anxiety disorder) Mild recurrent major depression Hand numbness Anxiety and depression Hospital discharge follow-up Post-COVID syndrome Hernia COVID-19 Migraines Shortness of breath Kidney calculi Surgical History S/P myomectomy Hx of cholecystectomy Family History Family/Other No pertinent past medical history Father Lung cancer Mother Hypertension Diabetes Social History Housing: Apartment Alcohol intake: current Alcohol intake frequency: holidays/special occasions only Alcohol type: wine and hard liquor Patient Tobacco Use Status: Never used Tobacco e-Cigarette/Vaping Use: Never Used Second Hand Smoke Exposure: Yes service: No Current occupational status: employed 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 Jacoby Hahn, Swati Baltazar, Efrem Teresa and colleagues, with an educational young from [employer]. Review of Systems Const All systems reviewed & are unremarkable except as noted in HPI and below Eyes Reports no additional complaints, Denies change in vision and Denies other visual disturbances Card Denies chest pain at rest, Denies chest pain with activity, Denies edema, Denies irregular heart rhythm, Denies claudication, Denies dyspnea, Denies dyspnea on exertion, Denies orthopnea, Denies paroxysmal nocturnal dyspnea and Denies slow heart rate Resp Denies cough, Denies dyspnea and Denies dyspnea on exertion GI Denies abdominal pain, Denies change in bowel habits, Denies excessive flatus, Denies nausea and Denies vomiting Denies urinary incontinence, Denies urinary hesitancy and Denies urinary urgency Musc Denies abnormal gait, Denies atrophy, Denies deformity and Denies limited range of motion Skin/Breast Denies bleeding lesions, Denies changing lesions and Denies rash Neuro Denies abnormal gait, Denies behavioral changes, Denies confusion and Denies lack of coordination Psych Denies behavioral changes and Denies confusion Physical exam (Primary Care) Vital Signs: Last Vital Signs BP 130/86 06/04/23 08:24 BMI result Body Mass Index 39.3 Tobacco/Smoking Status: Tobacco use Status Tobacco use date assessed 04/23/23 06/04/23 08:31 Patient Tobacco Use Status Never used Tobacco 06/04/23 08:31 e-Cigarette/Vaping Use Never Used 06/04/23 08:31 Thrive Assessment: Date of Thrive Assessment Date Thrive assessed 04/23/23 06/04/23 08:31 Const General: No confusion Orientation/consciousness: patient oriented x3 and No confusion HENMT Head: Yes normal to inspection, Yes normocephalic and Yes atraumatic Ears: external ears normal Eyes General: appearance normal, both eyes and all related structures Eyelids: Yes eyelids normal Conjunctivae: conjunctivae normal Neck Neck: Yes normal visual inspection and Yes supple Resp Effort & Inspection: normal respiratory effort Auscultation: clear to auscultation bilaterally Cardio Jugular venous distension: no JVD Rate: regular rate Rhythm: regular rhythm Heart sounds: S1 normal heart sound present and S2 normal heart sound present GI Inspection: Yes normal to inspection Palpation (GI): Soft to palpation and nontender Auscultation: normal bowel sounds Skin General skin exam: no rashes or lesions noted Neuro General: patient oriented x3, no focal motor deficits and No confusion Extrem General: Yes full ROM Psych Appearance: grossly normal Assessment and Plan Assessment & Plan (1) Physical exam: Code(s): Z00.00 - Encounter for general adult medical examination without abnormal findings Plan: Repeat in a year. Coding Level of Care Code Est Pt Prev Care 40-64y(00167) Diagnoses Physical exam Z00.00 Time Spent (min) 32
== END 2023-06-04 09:03 | disposition home or self-care (01) ==
PROVIDERS: Visit Provider Internal Medicine
DX: Z00.00 Encounter for general adult medical examination without abnormal findings (principal)
CPT/HCPCS: 99396

== ENCOUNTER 2023-06-20 07:47 | Outpatient (REF) | payer OTHER, SELFPAY ==
--- NOTE | ~2023-06-20 | MM_ITS ---
EXAMINATION: MM SCREENING DIGITAL BREAST TOMOSYNTHESIS, BILATERAL CLINICAL INFORMATION: Screening. Asymptomatic. COMPARISON: Mammography: This study is compared with prior exams dating back to 2022. TECHNIQUE: Digital breast tomosynthesis is performed in both the craniocaudal and mediolateral oblique views along with computer-aided detection (CAD). Synthesized 2D images are generated from the tomosynthesis. FINDINGS: There are scattered areas of fibroglandular density (ACR BI-RADS breast composition Category b). There are no significant masses, abnormal calcifications, or other abnormalities. MM/MM tomosynthesis screening BI IMPRESSION: No mammographic evidence of malignancy. ASSESSMENT: BI-RADS BI-RADS 1 - Negative RECOMMENDATION: Routine annual mammography screening. 1 year F/U This examination should not preclude the clinical evaluation of a suspicious palpable abnormality. This patient's information was entered into a reminder system with a target due date for their next mammogram.
== END 2023-06-20 07:48 | disposition home or self-care (01) ==
LOC: HO.MAMMO 07:47
PROVIDERS: PCP Internal Medicine; Visit Provider Internal Medicine
DX: Z12.31 Encounter for screening mammogram for malignant neoplasm of breast (principal)
CPT/HCPCS: 77063; 77067

== ENCOUNTER → 2023-06-20 08:00 | Outpatient (BNV) | payer OTHER, SELFPAY | PROVIDERS: PCP Internal Medicine; Visit Provider Radiology Diagnostic Radiology | DX: Z12.31 Encounter for screening mammogram for malignant neoplasm of breast (principal) | CPT/HCPCS: 77063; 77067 ==

== ENCOUNTER 2023-12-14 19:22 | Emergency (ER) | payer OTHER, SELFPAY ==
[2023-12-14 19:26] VITALS: BP 150/98; PULSE 88; RESP 16; TEMP 37.1; O2SAT 99; BMI 38.7
--- NOTE | 2023-12-14 20:04 | ED_ITS ---
HPI - General Adult General Chief complaint: Upper Respiratory Symptoms Stated complaint: Vomitng/Cough Time Seen by Provider: 12/14/23 21:26 Source: patient Mode of arrival: ambulatory Limitations: no limitations History of Present Illness ED Provider: Dr. Cody Whitt HPI narrative: 43-year-old female with no significant past medical history who presents emergency department for evaluation cough, sneezing, shortness of breath, dyspnea on exertion x4 days. she denied chest pain, fever or chills. She states that for 1 week she has had pain with urination and urinary frequency. She also states over the past 2 days she has had nausea and vomiting, she has been vomiting once or twice a day. Patient is concerned that she might have a urine infection verses a sexually transmitted disease. Related Data Home Medications ?Medication ?Instructions ?Recorded ?Confirmed omeprazole 20 mg capsule,delayed 20 mg PO DAILY 04/29/20 06/04/23 release vitamin with calcium 1 tab PO DAILY 07/26/21 06/04/23 no.72-iron 27 mg-folic acid 1 mg tablet ( Vitamins Plus Low Iron) Previous Rx's ?Medication ?Instructions ?Recorded calcium carbonate 500 mg PO DAILY #30 tabs 07/06/20 fluticasone propionate 50 1 spray intranasal DAILY #100 mL 07/02/22 mcg/actuation nasal spray,suspension (Flonase Allergy Relief) diphenhydramine HCl 25 mg tablet 50 mg (2 x 25 mg) PO Q6-8H PRN 02/20/23 (Benadryl Allergy) allergic reaction #14 tabs loratadine 10 mg tablet (Claritin) 10 mg PO DAILY #30 tabs 02/20/23 Symbicort 160 mcg-4.5 2 puff PO BID 30 days #1 ea 05/18/23 mcg/actuation HFA aerosol inhaler (budesonide-formoterol) [id number]-pgqsbhjy 1 cap PO Q4-6H PRN headache #14 08/20/23 50 mg-300 mg-40 mg capsule caps (Fioricet) cefuroxime axetil 250 mg tablet 250 mg PO Q12H 5 days #10 tabs 12/14/23 phenazopyridine 200 mg tablet 200 mg PO TID PRN Burning with 12/14/23 (Pyridium) urination 3 days #9 tabs Allergies Allergy/AdvReac Type Severity Reaction Status Date / Time No Known Allergies Allergy Verified 12/14/23 19:30 [No Known Allergies*] Review of Systems 2 Review of Systems: Yes all other systems are reviewed and are negative PMFSH Past Medical History Medical History (Updated 12/15/23 @ 00:01 by Lori Dadyllan) Morbid obesity Pelvic pain in female Carpal tunnel syndrome KAYLA (generalized anxiety disorder) Mild recurrent major depression Hand numbness Anxiety and depression Hospital discharge follow-up Post-COVID syndrome Hernia COVID-19 Migraines Shortness of breath Kidney calculi Surgical History S/P myomectomy Hx of cholecystectomy Family History Family History Family/Other No pertinent past medical history Father Lung cancer Mother Hypertension Diabetes Social History Social History Housing: Apartment Alcohol intake: current Alcohol intake frequency: holidays/special occasions only Alcohol type: wine and hard liquor Patient Tobacco Use Status: Never used Tobacco e-Cigarette/Vaping Use: Never Used Second Hand Smoke Exposure: Yes Advance Directives: No Advance Directives Information Provided: No service: No Current occupational status: employed 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/ [employer] Current occupational exposures/hazards: No Cognitive needs: No Hearing needs: No Vision needs: No Physical Exam ED Vital Signs: Vital Signs - 24 hr 12/14/23 19:26 12/14/23 22:18 Temperature 98.8 F 98.8 F Pulse Rate 88 88 Respiratory Rate 16 16 Blood Pressure 150/98 H 150/98 H Pulse Oximetry 99 99 Oxygen Delivery Method Room Air Room Air BMI result Body Mass Index 38.7 Vital signs revealed an elevated blood pressure 150/98 otherwise unremarkable Exam: General: Awake, alert in no distress Head: Normocephalic, atraumatic EENT: PERRL, Lids normal, sclera normal, conjunctiva normal, nose normal , ears normal, throat without erythema or exudates Neck: Supple, no adenopathy Lung: breath sounds symmetric, no wheezing, rales or rhonchi Chest: symmetric movement, nontender Heart: regular rate and rhythm, normal S1, S2 no murmurs or rubs Abdomen: soft, non-tender, nondistended, normal bowel sounds Back: no vertebral tenderness, no CVAT Extremities: no deformities, moves all extremities symmetrically Neuro: Awake, alert, oriented, normal speech, cranial nerves intact, moves all extremities symmetrically Psych: Pleasant, cooperative Course Course Course Narrative: This is a Rapid Medical Examination (RME) performed by Skyla Elena PA-C in triage. Full HPI, ROS, assessment and treatment plan per primary provider in the Main ED. 43 yo female here for eval of sore throat, cough, and sneeze since Sunday (5 days ago) and N/V x2 days. admits to dysuria 1 wk ago which resolved. denies abd pain, flank pain, diarrhea, constipation. no known sick contacts. Plan: labs, UA, viral serology Medications Administered Discontinued Medications Generic Name Dose Route Start Last Admin Trade Name Freq PRN Reason Stop Dose Admin Cefuroxime Axetil 250 mg 12/14/23 21:46 12/14/23 21:56 Cefuroxime Axetil 250 Mg Tablet PO 12/14/23 21:47 250 mg ONCE ONE Administration Phenazopyridine HCl 200 mg 12/14/23 21:46 12/14/23 21:56 Phenazopyridine Hcl 200 Mg Tablet PO 12/14/23 21:47 200 mg ONCE ONE Administration Medical Decision Making Medical Decision Making [facility] Narrative: 43-year-old female with no significant past medical history who presents emergency department for evaluation sore throat, cough, sneezing x4 days, dysuria with urinary frequency x1 week and nausea and vomiting x2 days. Vital signs did reveal an elevated blood pressure. Physical examination was unremarkable. Differential diagnosis: Includes but is not limited to Cough: Bronchitis, pneumonia, upper respiratory tract infection, viral syndrome Dysuria: Urinary tract infection, STD Following evaluation was ordered: CBC, CMP, magnesium, urinalysis, lipase COVID- 19, RSV, influenza, chlamydia, gonorrhea by PCR Patient was initially treated with the following: cefuroxime 250 mg orally, Pyridium 200 mg orally Course: The patient's physical examination was unremarkable. patient's urinalysis microscopic evaluation was consistent with urinary tract infection. I did discuss this with the patient and the patient was started on cefuroxime 250 mg q.12 hours x5 days and Pyridium 200 mg 3 times a day as needed for dysuria/burning. Patient's GC and chlamydia tests were negative. Patient also has a viral URI and I did discuss this with the patient as well. She was given printed and verbal instructions and discharged home. Admission/Observation Consideration of admission/observation: Escalation of care including admission/observation considered ( Yes) Lab Data [facility] Lab Attestation statement: I reviewed the patient's lab results. my independent interpretation patient's laboratory evaluation as follows: CBC was normal. CMP was normal. Lipase was normal. COVID-19, influenza were negative. Urinalysis was positive and microscopic revealed was Significant number of white blood cells and bacteria. GC and chlamydia PCR testing was negative. 12/14/23 20:03 12/14/23 20:03 Labs: Lab Results 12/14/23 12/14/23 Range/Units 20:03 21:49 WBC 7.1 (4.8-10.8) X10*3/uL RBC 4.41 (4.20-5.50) X10*6/uL Hgb 12.9 (12.0-16.0) g/dl Hct 38.2 (37.0-47.0) % MCV 86.6 (80.0-98.0) fL MCH 29.3 (27.0-33.0) pg MCHC 33.8 (31.0-35.0) g/dl RDW 13.2 (11.0-16.0) % Plt Count 374 (160-400) X10*3/uL MPV 8.7 L (9.4-12.3) fL Immature Gran % (Auto) 0.3 (0.0-0.4) % Neut % (Auto) 55.2 (45-73) % Lymph % (Auto) 29.1 (20-40) % [place] % (Auto) 8.7 (2-11) % Eos % (Auto) 5.9 H (0-4) % Baso % (Auto) 0.8 (0-2) % Lymph # (Auto) 2.1 (1.2-4.9) X10*3/uL [place] # (Auto) 0.6 (0.1-1.2) X10*3/uL Eos # (Auto) 0.4 (0.0-0.4) X10*3/uL Baso # (Auto) 0.1 (0.0-0.2) X10*3/uL Abs Immat Gran (auto) 0.02 (0.00-0.03) X10*3/uL Absolute Neuts (auto) 3.9 (2.0-8.3) x10*3/uL Absolute Nucleated RBC 0.000 (0.0-0.012) X10*3/uL Nucleated RBC % (auto) 0.0 (0.0-0.2) /100WBC Sodium 141 (135-145) mmol/L Potassium 3.4 (3.3-5.1) mmol/L Chloride 106 (96-108) mmol/L Carbon Dioxide 24 (22-29) mmol/L Anion Gap 14 (12-20) BUN 15 (9-16) mg/dL Creatinine 0.95 (0.5-1.4) mg/dL Estim Creat Clear Calc 70.7 Estimated GFR > 60 Random Glucose 91 (60-115) mg/dL Calcium 9.3 D (8.4-10.2) mg/dL Magnesium 2.2 (1.6-2.6) mg/dL Total Bilirubin 0.2 (0.0-1.0) mg/dL AST 16 (5-31) U/L ALT 19 (0-31) U/L Alkaline Phosphatase 79 (39-117) U/L Total Protein 7.8 (6.5-8.0) g/dL Albumin 4.0 (3.5-5.0) g/dL Lipase 51 (8-78) U/L Urine Color Yellow Urine Appearance Cloudy Urine pH 6.0 (5.0-9.0) Ur Specific [place] 1.025 (1.005-1.025) Urine Protein 30 (1+) H (Neg-Trace) mg/dL Urine Glucose (UA) Negative (Negative) mg/dL Urine Ketones Trace (Negative) mg/dL Urine Blood Large (3+) H (Negative) Urine Nitrite Negative (Negative) Ur Leukocyte Esterase Moderate (2+) H (Negative) Urine RBC 0-2 (0-2) /HPF Urine WBC 21-50 H (0-5) /HPF Ur Squamous Epith Cells 3-5 (0-2) /HPF Urine Bacteria 2+ (None Seen) Hyaline Casts 0-2 (0-2) /LPF Chlam trachomat DNA PCR NOT DETECTED (Not Detect.) Influenza Type A (PCR) NEGATIVE (Negative) Influenza Type B (PCR) NEGATIVE (Negative) N.gonorrhoeae DNA (PCR) NOT DETECTED (Not Detect.) RSV RNA Qual (PCR) NEGATIVE (Negative) SARS-CoV-2 RNA (RT-PCR) NEGATIVE (Negative) Prescription Management I considered prescription management with: Pain Medication ( Pyridium) and Antibiotic ( cefuroxime) Discharge Plan Discharge Clinical Impression: Urinary tract infection, Viral syndrome, Encounter for assessment of STD exposure Patient Disposition: Home, Self-Care Instructions: Urinary Tract Infection in Women (ED) Additional Instructions: Your blood work was unremarkable. Your COVID-19, influenza and RSV were negative. Your urine test was consistent with a urinary tract infection. I am going to treat you with cefuroxime 250 mg, 1 pill every 12 hours for 5 days Take Pyridium 200 mg pills, 1 pill 3 times a day as needed for burning/painful urination. We did send off a urine test for gonorrhea and chlamydia, this will not be back today and may come back in the next 2 days. You can check the patient portal and if 1 of these tests are positive then you will need to be treated for STDs. The emergency department should also contact you this test comes back positive. Follow-up with your doctor in 2 days. Please return to the emergency department if your symptoms get worse or if you develop any symptoms that are concerning to you. Prescriptions: New cefuroxime axetil 250 mg tablet 250 mg PO Q12H 5 Days Qty: 10 0RF phenazopyridine [Pyridium] 200 mg tablet 200 mg PO TID PRN (Reason: Burning with urination) 3 Days Qty: 9 0RF No Action calcium carbonate 500 mg calcium (1,250 mg) tablet 500 mg PO DAILY Qty: 30 0RF fluticasone propionate [Flonase Allergy Relief] 50 mcg/actuation spray,suspension 1 spray intranasal DAILY Qty: 100 0RF Rx Instructions: administer into each nostril [id number] [Fioricet] 50-300-40 mg capsule 1 cap PO Q4-6H PRN (Reason: headache) Qty: 14 0RF diphenhydramine HCl [Benadryl Allergy] 25 mg tablet 50 mg PO Q6-8H PRN (Reason: allergic reaction) Qty: 14 0RF loratadine [Claritin] 10 mg tablet 10 mg PO DAILY Qty: 30 0RF omeprazole 20 mg capsule,delayed release(DR/EC) 20 mg PO DAILY Vitamin Plus Low Iron 27 mg iron- 1 mg tablet 1 tab PO DAILY budesonide-formoterol [Symbicort] 160-4.5 mcg/actuation HFA aerosol inhaler 2 puff PO BID 30 Days Qty: 1 12RF Interventions: ED Discharge Assessment Last Done: 12/14/23 22:18 Discharge Date/Time: 12/14/23 22:18 Print Language: Montene[place]
[2023-12-14 20:09] LABS: MANUAL DIFF FLAG NO
[2023-12-14 20:11] LABS: Appearance Urine Cloudy; Basophils Absolute Auto 0.1 X10*3/uL (0.0-0.2); Basophils Percent Auto 0.8 % (0-2); Color Urine Yellow; Eosinophils Absolute Auto 0.4 X10*3/uL (0.0-0.4); Eosinophils Percent Auto 5.9 % (0-4); Glucose Urine UA Negative (Negative); Hematocrit 38.2 % (37.0-47.0); Hemoglobin 12.9 g/dl (12.0-16.0); Imm Gran Abs Auto 0.02 X10*3/uL (0.00-0.03); Imm Gran Pct Auto 0.3 % (0.0-0.4); Leukocyte Esterase Urine Moderate (2+) (Negative); Lymphocytes Absolute Auto 2.1 X10*3/uL (1.2-4.9); Lymphocytes Percent Auto 29.1 % (20-40); Mean Corpuscular HGB Conc 33.8 g/dl (31.0-35.0); Mean Corpuscular Hemoglobin 29.3 pg (27.0-33.0); Mean Corpuscular Volume 86.6 fL (80.0-98.0); Mean Platelet Volume 8.7 fL (9.4-12.3); Monocytes Absolute Auto 0.6 X10*3/uL (0.1-1.2); Monocytes Percent Auto 8.7 % (2-11); Neutrophils Absolute Auto 3.9 x10*3/uL (2.0-8.3); Neutrophils Percent Auto 55.2 % (45-73); Nitrite Urine Negative (Negative); Platelet Count 374 X10*3/uL (160-400); Red Blood Count 4.41 X10*6/uL (4.20-5.50); Red Cell Distribution Width 13.2 % (11.0-16.0); Specific Gravity - Urine 1.025 (1.005-1.025); UMIC TRIGGER UACC YES; Urine Blood Large (3+) (Negative); Urine Ketones Trace mg/dL (Negative); Urine Protein 30 (1+) mg/dL (Neg-Trace); White Blood Count 7.1 X10*3/uL (4.8-10.8)
[2023-12-14 20:26] LABS: Bacteria Urine 2+ (None Seen); Hyaline Casts Urine 0-2 /LPF (0-2); RBC Urine 0-2 /HPF (0-2); UACC Culture Trigger YES; WBC Urine 21-50 /HPF (0-5)
[2023-12-14 20:27] LABS: Alanine Aminotransferase 19 U/L (0-31); Alkaline Phosphatase 79 U/L (39-117); Anion Gap 14 (12-20); Aspartate Amino Transferase 16 U/L (5-31); Bilirubin Total 0.2 mg/dL (0.0-1.0); Blood Urea Nitrogen 15 mg/dL (9-16); Calcium 9.3 mg/dL (8.4-10.2); Carbon Dioxide 24 mmol/L (22-29); Chloride 106 mmol/L (96-108); Creatinine Clr Calc Pharmacy 70.7; Estimated Glomerular Filt Rate > 60; Glucose Random 91 mg/dL (60-115); Lipase 51 U/L (8-78); Magnesium 2.2 mg/dL (1.6-2.6); Potassium 3.4 mmol/L (3.3-5.1); Sodium 141 mmol/L (135-145); Total Protein 7.8 g/dL (6.5-8.0)
[2023-12-14 20:49] LABS: Influenza A PCR NEGATIVE (Negative); Influenza B PCR NEGATIVE (Negative); Resp Syncy Virus RNA Qual PCR NEGATIVE (Negative); SARS COV2 PCR INHOUSE NEGATIVE (Negative)
[2023-12-14] MEDS: Phenazopyridine HCL 200 MG TABLET PO (21:56)
[2023-12-14] MEDS: cefuroxime axetiL 250 MG TABLET PO (21:56)
[2023-12-14 22:18] VITALS: BP 150/98; PULSE 88; RESP 16; TEMP 37.1; O2SAT 99
[2023-12-15 06:01] LABS: CT PCR NOT DETECTED (Not Detect.); NG PCR NOT DETECTED (Not Detect.)
== END 2023-12-14 22:18 | disposition home or self-care (01) ==
PROVIDERS: Physician Assistant Medical; Emergency Provider Emergency Medicine Emergency Medical Services; PCP Internal Medicine
DX: B34.9 Viral infection, unspecified (principal); N39.0 Urinary tract infection, site not specified; Z20.2 Contact with and (suspected) exposure to infections with a predominantly sexual mode of transmission; Z03.818 Encounter for observation for suspected exposure to other biological agents ruled out; J45.909 Unspecified asthma, uncomplicated
CPT/HCPCS: 0241U; 80053; 81001; 83690; 83735; 85025; 87086; 87491; 87591; 99283

== ENCOUNTER → 2024-05-09 09:15 | Outpatient (BNVA) | payer OTHER, SELFPAY | PROVIDERS: PCP Internal Medicine; Visit Provider Nurse Practitioner Family | DX: K91.5 Postcholecystectomy syndrome (principal); R51.9 Headache, unspecified | CPT/HCPCS: 96127 ==

== ENCOUNTER 2024-06-05 08:23 | Outpatient (REF) | payer OTHER, SELFPAY ==
--- OUTSIDE RECORDS SUMMARY | 2024-06-05 10:06 | XMS_ITS | Encounter Summary ---
Author Organization [facility] Address [address] [place] [address] Care Team Providers Care Sugar Trucker Name Role Phone Unavailable Primary Care Provider Unavailabl e Encounter Details Date Type Department Care Team (Latest Contact Info) Description [facility] [facility] [address] [facility] [address] [place] [address] [address] [place] [address] Tad Burrows MD [address] [place] [address] Encounter for laboratory testing for [...] Date/Time Associated Diagnosis Comments COVID-19 (SARS-COV-2) - [facility] Routine 06/19/2020 8:24 AM EST Encounter for laboratory testing for COVID-19 virus [ICD-10-CM] documented in this encounter Results * COVID-19 (SARS-COV-2) (SEMA4) (06/19/2020 8:24 AM EST) COVID-19 RT-PCR NOT-DETEC LISA Not-Detec lisa 06/20/2020 8:28 AM EST [facility] - [facility] Comment:Interpretation: The viral RNA was not detected, making the COVID-19 diagnosis less likely. Clinical correlation is highly recommended.Final report signed by Kalin Del Rio, Ph.D., Laboratory DirectorTests performed at [facility] Nasopharyngeal swab / Unknown 06/19/2020 8:24 AM EST 06/19/2020 8:24 AM EST Narrative ALICE IVYALEXANDER - 06/20/2020 8:28 AM EST Performed by [employer] [address] [place] [address], CLIA# [id number] and [place] License# [id number] Tad Burrows MD MICROBIOLOGY - GENER AL ORDERABLES ALICE LORD documented in this encounter Visit Diagnoses Diagnosis Encounter for laboratory testing for COVID-19 virus documented in this encounter
--- OUTSIDE RECORDS SUMMARY | 2024-06-05 10:06 | XMS_ITS | Encounter Summary ---
Author Organization [facility] Address [address] [place] [address] Care Team Providers Care Deputy Insurance Commissioner Name Role Phone Unavailable Primary Care Provider Unavailabl e Encounter Details Date Type Department Care Team (Latest Contact Info) Description 05/02/2020 Lab Requisition [facility] COVID Drive Through [address] [place] [address] [address] [place] [address] Alex Maravilla PA-C [address] [place] [address] Encounter for laboratory testing for COVID-19 [...] Date/Time Associated Diagnosis Comments COVID-19 (SARS-COV-2) - [facility] Routine 05/02/2020 1:40 PM EST Encounter for laboratory testing for COVID-19 virus [ICD-10-CM] documented in this encounter Results * COVID-19 (SARS-COV-2) ([facility]4) (05/02/2020 1:40 PM EST) COVID-19 RT-PCR NOT-DETEC LISA Not-Detec lisa 05/03/2020 5:28 PM EST [facility] - POP Comment:Interpretation: The viral RNA was not detected, making the COVID-19 diagnosis less likely. Clinical correlation is highly recommended.Final report signed by Kalin Del Rio, Ph.D., Laboratory DirectorTests performed at [employer] [facility] Nasopharyngeal swab / Unknown 05/02/2020 1:40 PM EST 05/02/2020 1:40 PM EST Narrative ALICE LORD - 05/03/2020 5:28 PM EST Performed by [employer], [employer] [address] [place] [address], CLIA# [id number] and [place] License# [id number] Alex Maravilla PA-C MICROBIOLOGY - NERAL ORDERABLES ALICE LORD documented in this encounter Visit Diagnoses Diagnosis Encounter for laboratory testing for COVID-19 virus documented in this encounter
--- OUTSIDE RECORDS SUMMARY | 2024-06-05 10:06 | XMS_ITS | Clinical Summary ---
Author Organization [facility] Address [address] [place] [address] Care Team Providers Care Flying Squad Worker Name Role Phone Unavailable Primary Care Provider [...]
--- OUTSIDE RECORDS SUMMARY | 2024-06-05 10:06 | XMS_ITS | Encounter Summary ---
Author Organization [facility] Address [address] [place] [address] Care Team Providers Care Instructor Decorating Name Role Phone Unavailable Primary Care Provider Unavailabl e Encounter Details Date Type Department Care Team (Latest Contact Info) Description 04/20/2020 Lab Requisition [facility] COVID Drive Through [address] [place] [address] [address] [place] [address] Alex Maravilla PA-C [address] [place] [address] Encounter for laboratory testing for COVID-19 [...] Date/Time Associated Diagnosis Comments COVID-19 (SARS-COV-2) - [facility] Routine 04/20/2020 6:28 PM EST Encounter for laboratory testing for COVID-19 virus [ICD-10-CM] documented in this encounter Results * COVID-19 (SARS-COV-2) ([facility]4) (04/20/2020 6:28 PM EST) COVID-19 RT-PCR NOT-DETEC LISA Not-Detec lisa 04/22/2020 9:06 PM EST [facility] - POP Comment:Interpretation: The viral RNA was not detected, making the COVID-19 diagnosis less likely. Clinical correlation is highly recommended.Final report signed by Dior Fields, Ph.D., Laboratory DirectorTests performed at [employer] [facility] Nasopharyngeal swab / Unknown 04/20/2020 6:28 PM EST 04/20/2020 6:28 PM EST Narrative ALICE LORD - 04/22/2020 9:06 PM EST Performed by [employer], [employer] [address] [place] [address], CLIA# [id number] and [place] License# [id number] Alex Maravilla PA-C MICROBIOLOGY - NERAL ORDERABLES ALICE SAKINA Arpita POP documented in this encounter Visit Diagnoses Diagnosis Encounter for laboratory testing for COVID-19 virus documented in this encounter
--- OUTSIDE RECORDS SUMMARY | 2024-06-05 10:06 | XMS_ITS | Encounter Summary ---
Author Organization [facility] Address [address] [place] [address] Care Team Providers Care Hand Sample Maker Name Role Phone Unavailable Primary Care Provider Unavailabl e Encounter Details Date Type Department Care Team (Latest Contact Info) Description [facility] [facility] [address] [place] [address] [address] [place] [address] Tad Burrows MD [address] [place] [address] Encounter for laboratory testing for [...] Date/Time Associated Diagnosis Comments COVID-19 (SARS-COV-2) - [facility] LAB Routine 05/30/2020 11:57 AM EST Encounter for laboratory testing for COVID-19 virus [ICD-10-CM] documented in this encounter Results * COVID-19 (SARS-COV-2) (SEMA4) (05/30/2020 11:57 AM EST) COVID-19 RT-PCR NOT-DETEC LISA Not-Detec lisa 05/31/2020 11:35 AM EST [facility] - POP Comment:Interpretation: The viral RNA was not detected, making the COVID-19 diagnosis less likely. Clinical correlation is highly recommended.Final report signed by Dior Fields, Ph.D., Laboratory DirectorTests performed at [employer] [facility] Nasopharyngeal swab / Unknown 05/30/2020 11:57 AM EST 05/30/2020 11:57 AM EST Narrative ALICE LORD - 05/31/2020 11:35 AM EST Performed by [employer] [address] [place] [address], CLIA# [id number] and [place] License# [id number] Tad Burrows MD MICROBIOLOGY - [facility] AL ORDERABLES ALICE LORD documented in this encounter Visit Diagnoses Diagnosis Encounter for laboratory testing for COVID-19 virus documented in this encounter
[2024-06-05 10:35] LABS: Alanine Aminotransferase 22 U/L (0-31); Albumin Level 3.8 g/dL (3.5-5.0); Alkaline Phosphatase 60 U/L (39-117); Anion Gap 14 (12-20); Aspartate Amino Transferase 27 U/L (5-31); Bilirubin Total 0.5 mg/dL (0.0-1.0); Blood Urea Nitrogen 10 mg/dL (9-16); Calcium 8.7 mg/dL (8.4-10.2); Carbon Dioxide 19 mmol/L (22-29); Chloride 111 mmol/L (96-108); Cholesterol 128 mg/dL (<200); Estimated Glomerular Filt Rate > 60; Glucose Fasting 94 mg/dL (60-99); HDL Cholesterol 32 mg/dL (>40); LDL Cholesterol Calculated 80 mg/dL (<100); Sodium 140 mmol/L (135-145); Triglycerides 82 mg/dL (<150)
[2024-06-05 10:43] LABS: Influenza A PCR NEGATIVE (Negative); Influenza B PCR NEGATIVE (Negative); Resp Syncy Virus RNA Qual PCR NEGATIVE (Negative); SARS COV2 PCR INHOUSE NEGATIVE (Negative)
== END 2024-06-05 08:24 | disposition home or self-care (01) ==
LOC: HO.LAB 08:23
PROVIDERS: PCP Internal Medicine; Visit Provider Internal Medicine
DX: Z00.01 Encounter for general adult medical examination with abnormal findings (principal); T14.8XXA Other injury of unspecified body region, initial encounter; J06.9 Acute upper respiratory infection, unspecified; J45.40 Moderate persistent asthma, uncomplicated; E78.5 Hyperlipidemia, unspecified; R09.89 Other specified symptoms and signs involving the circulatory and respiratory systems; Z23 Encounter for immunization; W54.0XXA Bitten by dog, initial encounter; Y93.9 Activity, unspecified; Y92.9 Unspecified place or not applicable; Y99.9 Unspecified external cause status
CPT/HCPCS: 0241U; 80053; 80061; 90471; 90715; 96127

== ENCOUNTER 2024-06-05 08:23 | Outpatient (AMB) | payer OTHER, SELFPAY ==
[2024-06-05 08:35] VITALS: BP 142/92; PULSE 82; O2SAT 96; BMI 38.2
--- NOTE | 2024-06-05 08:35 | MHC.PC.OV ---
Vital Signs 06/05/24 08:35 Height 4 ft 10 in Weight 183 lb BMI 38.2 BP 142/92 H Blood Pressure Location Lt brachial Position Sitting Pulse 82 Pulse Source Pulse Oximeter Pulse Oximetry (%) 96 Oxygen Delivery Method Room Air Intake Visit Reasons: Annual Exam Supervisor Liquid Yeast Required: Yes Supervisor Liquid Yeast Language: Software Test Developer Name: Cait Ellis MD Information Interpreted: non-clinical & clinical Accompanied by: Self / Same As Patient Allergies No Known Allergies [No Known Allergies*] Allergy (Verified 06/05/24 08:44) Medication List - Last Reconciled 06/05/24 by Cait Ellis MD acetaminophen 1,000 mg (2 x 500 mg) PO Q6H PRN calcium carbonate 500 mg PO DAILY diphenhydramine HCl (Benadryl Allergy) 50 mg (2 x 25 mg) PO Q6-8H PRN fluticasone propionate 50 mcg/actuation (Flonase Allergy Relief) 1 spray intranasal DAILY loperamide (Imodium A-D) 2 mg PO Q4H PRN loratadine (Claritin) 10 mg PO DAILY omeprazole 20 mg PO DAILY Symbicort 160-4.5 mcg/actuation (budesonide-formoterol) 2 puffs PO BID 30 days NS Tobacco use date assessed: 05/09/24 Dental Screening Dental Screen Date: 05/09/24 HPI HPI Comments History of Present Illness Details The patient is a 44-year-old female presenting for her physical exam. She has a persistent cough and respiratory symptoms since May 30, following exposure to a spouse diagnosed with influenza. She reports frequent coughing but has experienced a slight improvement in symptoms over several days. The patient mentions using dfcf-waf-domihpn medications such as Tylenol and Benadryl. She has a history of asthma managed with Symbicort, though she is currently unable to obtain her inhaler due to insurance issues. Additionally, she has a history of gastroesophageal reflux disease managed with omeprazole, and prior surgical history includes cholecystectomy and myomectomy. She was bitten by a dog weeks ago and last Tdap vaccine was 2020. There is no personal history of tobacco use, and alcohol consumption is minimal. The patient reports familial history of diabetes and hypertension in her mother, and her father had lung cancer. A recent flu exposure was noted with her spouse, although it's unclear if she contracted influenza. This visit includes an annual comprehensive examination with attention to ongoing respiratory symptoms and evaluation for other chronic and preventive care. - Up-to-date on Pap smear and mammography; next mammogram scheduled next month. - Last tetanus vaccination administered in 2019; renewal planned prior to 2024. - Laboratories for cholesterol, glucose, renal, and liver function tests ordered. - Colonoscopy not yet required due to age and lack of family history of colorectal cancer. [facility] Medical History Morbid obesity Pelvic pain in female Carpal tunnel syndrome KAYLA (generalized anxiety disorder) Mild recurrent major depression Hand numbness Anxiety and depression Hospital discharge follow-up Post-COVID syndrome Hernia COVID-19 Migraines Shortness of breath Kidney calculi Surgical History S/P myomectomy Hx of cholecystectomy Family History Family/Other No pertinent past medical history Father Lung cancer Mother Hypertension Diabetes Social History (Updated 06/05/24 @ 08:53 by Cait Ellis MD) Housing: Apartment Alcohol intake: current Alcohol intake frequency: holidays/special occasions only Alcohol type: wine and hard liquor Patient Tobacco Use Status: Never used Tobacco Tobacco use type: Cigarette e-Cigarette/Vaping Use: Never Used Second Hand Smoke Exposure: Yes service: No Current occupational status: employed 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 1. Little interest or pleasure in doing things: not at all 2. Feeling down, depressed, or hopeless: not at all 3. Trouble falling or staying asleep, or sleeping too much: not at all 4. Feeling tired or having little energy: not at all 5. Poor appetite or overeating: not at all 6. Feeling bad about yourself - or that you are a failure or have let yourself or your family down: not at all 7. Trouble concentrating on things, such as reading the newspaper or watching television: not at all 8. Moving or speaking so slowly that other people could have noticed. Or the opposite - being so fidgety or restless that you have been moving around a lot more than usual: not at all 9. Thoughts that you would be better off or of hurting yourself in some way: not at all Total score: 0 Depression Screening Interpretation: Negative Depression Screening Done: Yes 65226 - PHQ-9 Billing: Yes Source: Developed by Drs. Jacoby Hahn, Swati Baltazar, Efrem Teresa and colleagues, with an educational young from [employer]. Thrive Questionnaire Date Thrive assessed: 06/04/24 I am a: Patient What is your living situation today?: I have a steady place to live Within the past 12 months, did the food you bought not last and you didn't have the money to get more?: I choose not to answer this question Within the past 12 months, did you worry whether your food would run out before you got money to buy more?: I choose not to answer this question Do you have trouble paying for medicines?: Yes Do you have trouble getting transportation to medical appointments?: Yes Do you have trouble paying your heating and electricity bill?: No Do you have trouble taking care of your child, family member or friend?: No Do you have trouble with day-to-day activities such as bathing, preparing meals, shopping, managing finances, etc.?: No Are you currently unemployed and looking for a job?: No Are you interested in more education?: No Please select the resources that you would like help with: Paying for medicine Currently or been in a relationship where the following occur: I choose not to answer THRIVE Score: 1 AUDIT C Alcohol Use Questionnaire (AUDIT-C) 1. How often do you have a drink containing alcohol?: 2-3 times a week 2. How many drinks containing alcohol do you have on a typical day when you are drinking?: 1 or 2 3. How often do you have six or more drinks on one occasion?: Never Total Score: 3 KAYLA-7 AMB Questionnaire KAYLA-7 Date KAYLA - 7 assessed: 05/09/24 Feeling nervous, anxious, or on edge: 0 = Not at all Not being able to stop or control worryin = Not at all Worrying too much about different things: 0 = Not at all Trouble relaxin = Not at all Being so restless that it is hard to sit still: 0 = Not at all Becoming easily annoyed or irritable: 0 = Not at all Feeling afraid as if something awful might happen: 0 = Not at all Total KAYLA-7 score (0-4 normal; 5-9 mild; 10-14 moderate; 15-21 severe): 0 Source: Developed by Drs. Jacoby Hahn, Swati Baltazar, Efrem Teresa and colleagues, with an educational young from [employer]. KAYLA-7 Assessment Billing KAYLA-7 Assessment Tool: KAYLA-7 Assessment 87804 Review of Systems Const All systems reviewed & are unremarkable except as noted in HPI and below Card Denies chest pain at rest, Denies chest pain with activity, Denies edema, Denies irregular heart rhythm, Denies claudication, Denies dyspnea, Denies dyspnea on exertion, Denies orthopnea, Denies paroxysmal nocturnal dyspnea and Denies slow heart rate Resp Denies cough, Denies dyspnea and Denies dyspnea on exertion GI Denies abdominal pain, Denies change in bowel habits, Denies excessive flatus, Denies nausea and Denies vomiting Skin/Breast Denies bleeding lesions, Denies changing lesions and Denies rash Neuro Denies behavioral changes, Denies confusion and Denies lack of coordination Psych Denies behavioral changes and Denies confusion Physical exam (Primary Care) Vital Signs: Last Vital Signs Pulse 82 06/05/24 08:35 BP 142/92 H 06/05/24 08:35 Pulse Ox 96 06/05/24 08:35 Oxygen Delivery Method Room Air 06/05/24 08:35 BMI result Body Mass Index 38.2 BMI Assessment/Plan discussion: High BMI High, discussed plan: lifestyle, weight reduction, dietary and physical activity Tobacco/Smoking Status: Tobacco use Status Tobacco use date assessed 05/09/24 06/05/24 08:40 Patient Tobacco Use Status Never used Tobacco 06/05/24 08:53 Tobacco use type Cigarette 06/05/24 08:53 e-Cigarette/Vaping Use Never Used 06/05/24 08:53 PHQ-9: PHQ-9 Score PHQ-9: Total score 0 06/05/24 09:09 Depression Screening Interpretation: Negative Thrive Assessment: Date of Thrive Assessment Date Thrive assessed 06/04/24 06/05/24 08:40 Currently or been in a relationship where the following occur: I choose not to answer Const General: No confusion Orientation/consciousness: patient oriented x3 and No confusion HENMT Head: Yes normal to inspection, Yes normocephalic and Yes atraumatic Ears: external ears normal Eyes General: appearance normal, both eyes and all related structures Eyelids: Yes eyelids normal Conjunctivae: conjunctivae normal Neck Neck: Yes normal visual inspection and Yes supple Resp Effort & Inspection: normal respiratory effort Auscultation: clear to auscultation bilaterally Cardio Jugular venous distension: no JVD Rate: regular rate Rhythm: regular rhythm Heart sounds: S1 normal heart sound present and S2 normal heart sound present GI Inspection: Yes normal to inspection Palpation (GI): Soft to palpation and nontender Auscultation: normal bowel sounds Skin General skin exam: no rashes or lesions noted Neuro General: patient oriented x3, no focal motor deficits and No confusion Extrem General: Yes full ROM Psych Appearance: grossly normal Immunizations Boostrix Tdap 2.5 Lf unit-8 mcg-5 Lf/0.5 mL intramuscular syringe Performing Provider: Cait Ellis MD [facility] Administered by: Yani Bae LPN on 06/05/24 09:09 Dose Route Admin Location Dispensed Lot Number Expiration Date [facility] Alarm Signal Operator 0.5 mL IM Left Deltoid 0.5 mL [id number] 07/05/26 51541-491-64 HID GlobalINE VIS Given Date VIS Provided VIS Publication Date 06/05/24 Single Vaccine 20 Eligibility Eligibility Date Funding Source Not [facility] Eligible 06/05/24 Private Coding Level of Care Code Est Pt Level 3 (88996) Est Pt Prev Care 40-64y(47269) Diagnoses Physical exam Z00.00 Moderate persistent asthma without complication J45.40 Asthma complication type: uncomplicated Asthma persistence: persistent Dog bite, initial encounter W54.0XXA Encounter type: initial encounter Viral upper respiratory tract infection J06.9 URI type: unspecified viral URI Additional Codes KAYLA-7 Assessment Billing - KAYLA-7 Assessment Tool: KAYLA-7 Assessment 65181 ([id number]) PHQ-9 - 93079 - PHQ-9 Billing: Yes ([id number]) Time Spent (min) 34 Assessment & Plan Assessment & Plan (1) Physical exam: Code(s): Z00.00 - Encounter for general adult medical examination without abnormal findings Category: Medical (2) Moderate asthma: Code(s): J45.909 - Unspecified asthma, uncomplicated Category: Medical Qualifiers: Asthma complication type: uncomplicated Asthma persistence: persistent Qualified Code(s): J45.40 - Moderate persistent asthma, uncomplicated (3) Dog bite: Code(s): W54.0XXA - Bitten by dog, initial encounter Category: Medical Qualifiers: Encounter type: initial encounter Qualified Code(s): W54.0XXA - Bitten by dog, initial encounter (4) URI (upper respiratory infection): Code(s): J06.9 - Acute upper respiratory infection, unspecified Category: Medical Qualifiers: URI type: unspecified viral URI Qualified Code(s): J06.9 - Acute upper respiratory infection, unspecified Plan - Recommend a flu test to ascertain current influenza status. - Arrange to resolve insurance issues for continued access to prescribed Symbicort inhaler for asthma management. - Administer tetanus boost today if needed. - Perform ordered blood work for cholesterol, glucose, renal, and liver function. - Follow up with mammography as scheduled next month. - Consider symptomatic treatment continuation for cough as influenza-like illness may resolve soon. Patient was informed and verbally consented to the use of an ambient scribe for clinic note documentation during this visit. I discussed with the patient the nature of viral respiratory infections and the typical self-limiting course, including influenza. We emphasized the importance of receiving the prescribed Symbicort inhaler for her asthma management, and I highlighted efforts to address insurance barriers. The necessity of ongoing preventative health measures and timely vaccinations were reviewed, including the benefits and timing of the upcoming mammogram and the status of her immunizations. We also covered the rationale for evaluating her current respiratory symptoms with a flu test. I assured the patient that our approach includes continuous monitoring, and follow-up on all ordered tests and results will be communicated promptly. Orders: Orders Lipid Panel Today E78.5 - Hyperlipidemia, unspecified Comprehensive [place]. Panel Fast Today Z00.00 - Encounter for general adult medical examination without abnormal findings TDaP Immunization Today W54.0XXA - Bitten by dog, initial encounter, Z23 - Encounter for immunization SARS-CoV2/FLU/RSV Today R09.89 - Other specified symptoms and signs involving the circulatory and respiratory systems Medications: New guaifenesin ER (Mucinex) 600 mg PO BID 10 tabs 0RF 5 days Refilled Symbicort 160-4.5 mcg/actuation (budesonide-formoterol) 2 puffs PO BID 1 ea 2RF 30 days NS R06.00 - Dyspnea, unspecified Patient Instructions: - Monitor respiratory symptoms and seek medical care if symptoms worsen significantly. - Continue prescribed medications and zfjt-qqs-rwyhtfl treatments as advised. - Complete fasting for 8 hours before the scheduled blood tests. - Maintain the appointment for the mammogram next month. - Return for further evaluation or care if experiencing new or worsening symptoms. - Follow up with insurance provider regarding the Symbicort inhaler prescription. - Receive tetanus booster if it has been more than 5 years since the last dose.
--- OUTSIDE RECORDS SUMMARY | 2024-06-05 08:47 | XMS_ITS | Encounter Summary ---
Author Organization [facility] Address [address] [place] [address] Care Team Providers Care Associate Pastor Name Role Phone Unavailable Primary Care Provider Unavailabl e Encounter Details Date Type Department Care Team (Latest Contact Info) Description 04/20/2020 Lab Requisition [facility] COVID [address] Through [address] [place] [address] [address] [place] [address] Alex Maravilla PA-C [address] [place] [address] Encounter for laboratory testing for COVID-19 virus Social History Tobacco Use Types Packs/Day Years Used Date Smoking Tobacco: Never Assessed Sex and Gender Information Value Date Recorded Sex Assigned at Not on file Gender Identity Not on file Sexual Orientation Not on file documented as of this encounter Plan of Treatment Not on file documented as of this encounter Procedures Procedure Name Priority Date/Time Associated Diagnosis Comments COVID-19 (SARS-COV-2) - [facility] Routine 04/20/2020 6:28 PM EST Encounter for laboratory testing for COVID-19 virus [ICD-10-CM] documented in this encounter Results * COVID-19 (SARS-COV-2) (SEMA4) (04/20/2020 6:28 PM EST) COVID-19 RT-PCR NOT-DETEC LISA Not-Detec lisa 04/22/2020 9:06 PM EST [facility] - [facility] Comment:Interpretation: The viral RNA was not detected, making the COVID-19 diagnosis less likely. Clinical correlation is highly recommended.Final report signed by Dior Fields, Ph.D., Laboratory DirectorTests performed at [facility] Nasopharyngeal swab / Unknown 04/20/2020 6:28 PM EST 04/20/2020 6:28 PM EST Narrative ALICE LORD - 04/22/2020 9:06 PM EST Performed by [employer], [employer] [address] [place] [address], CLIA# [id number] and [place] License# [id number] Alex Maravilla PA-C MICROBIOLOGY - NERAL ORDERABLES ALICE SAKINA Arpita POP documented in this encounter Visit Diagnoses Diagnosis Encounter for laboratory testing for COVID-19 virus documented in this encounter
--- OUTSIDE RECORDS SUMMARY | 2024-06-05 08:48 | XMS_ITS | Encounter Summary ---
Author Organization [facility] Address [address] [place] [address] Care Team Providers Care Voip Network Technician Name Role Phone Unavailable Primary Care Provider Unavailabl e Encounter Details Date Type Department Care Team (Latest Contact Info) Description [facility] [address] [place] [address] [address] [place] [address] Tad Burrows MD [address] [place] [address] Encounter for laboratory testing for COVID-19 virus [...] Date/Time Associated Diagnosis Comments COVID-19 (SARS-COV-2) - [facility] Routine 06/19/2020 8:24 AM EST Encounter for laboratory testing for COVID-19 virus [ICD-10-CM] documented in this encounter Results * COVID-19 (SARS-COV-2) (SEMA4) (06/19/2020 8:24 AM EST) COVID-19 RT-PCR NOT-DETEC LISA Not-Detec lisa 06/20/2020 8:28 AM EST [facility] - [facility] Comment:Interpretation: The viral RNA was not detected, making the COVID-19 diagnosis less likely. Clinical correlation is highly recommended.Final report signed by Kalin Del Rio, Ph.D., Laboratory DirectorTests performed at [facility] Nasopharyngeal swab / Unknown 06/19/2020 8:24 AM EST 06/19/2020 8:24 AM EST Narrative ALICE IVYALEXANDER - 06/20/2020 8:28 AM EST Performed by [employer] [address] [place] [address], CLIA# [id number] and [place] License# [id number] Tad Burrows MD MICROBIOLOGY - GENER AL ORDERABLES ALICE LORD documented in this encounter Visit Diagnoses Diagnosis Encounter for laboratory testing for COVID-19 virus documented in this encounter
--- OUTSIDE RECORDS SUMMARY | 2024-06-05 08:48 | XMS_ITS | Encounter Summary ---
Author Organization [facility] Address [address] [place] [address] Care Team Providers Care Manager Etl Name Role Phone Unavailable Primary Care Provider Unavailabl e Encounter Details Date Type Department Care Team (Latest Contact Info) Description [facility] [facility] [address] [facility] [address] [facility] [address] [place] [address] [address] [place] [address] Tad Burrows MD [address] [place] [address] Encounter for laboratory testing for [...] Date/Time Associated Diagnosis Comments COVID-19 (SARS-COV-2) - [facility] Routine 05/30/2020 11:57 AM EST Encounter for laboratory testing for COVID-19 virus [ICD-10-CM] documented in this encounter Results * COVID-19 (SARS-COV-2) (SEMA4) (05/30/2020 11:57 AM EST) COVID-19 RT-PCR NOT-DETEC LISA Not-Detec lisa 05/31/2020 11:35 AM EST [facility] - [facility] Comment:Interpretation: The viral RNA was not detected, making the COVID-19 diagnosis less likely. Clinical correlation is highly recommended.Final report signed by Dior Fields, Ph.D., Laboratory DirectorTests performed at [employer] [facility] Nasopharyngeal swab / Unknown 05/30/2020 11:57 AM EST 05/30/2020 11:57 AM EST Narrative ALICE LORD - 05/31/2020 11:35 AM EST Performed by [employer] [address] [place] [address], CLIA# [id number] and [place] License# [id number] Tad Burrows MD MICROBIOLOGY - [facility] AL ORDERABLES ALICE LORD documented in this encounter Visit Diagnoses Diagnosis Encounter for laboratory testing for COVID-19 virus documented in this encounter
--- OUTSIDE RECORDS SUMMARY | 2024-06-05 08:48 | XMS_ITS | Clinical Summary ---
Author Organization [facility] Address [address] [place] [address] Care Team Providers Care Retention Specialist Name Role Phone Unavailable Primary Care Provider Unavailabl e Social History Tobacco Use Types Packs/Day Years Used Date Smoking Tobacco: Never Assessed Sex and Gender Information Value Date Recorded Sex Assigned at Not on file Gender Identity Not on file Sexual Orientation Not on file Plan of Treatment Health Maintenance Due Date Last Done Comments Hepatitis C Virus Screening 1981 HIV Screening 1994 DTaP/Tdap/Td Vaccines (1 - Tdap) 02/07/2000 Hepatitis B Vaccines (1 of 3 - 19+ 3-dose series) 02/07/2000 Pap Smear (Ages 21-65) 2002 Mammogram 2021 Influenza Vaccine 11/15/2023 COVID-19 Vaccine ( - 2023-2 5 season) 2023 HPV Vaccines Aged Out No longer eligi ble based on patient's age to complete this topic Pneumococcal Vaccine: Pediat pawan (0-5 Years) and At-Risk Patients (6 to 49 Years) Aged Out No longer eligible b ased on patient's age to complete this topic
--- OUTSIDE RECORDS SUMMARY | 2024-06-05 08:48 | XMS_ITS | Encounter Summary ---
Author Organization [facility] Address [address] [place] [address] Care Team Providers Care Licensed Therapist Name Role Phone Unavailable Primary Care Provider Unavailabl e Encounter Details Date Type Department Care Team (Latest Contact Info) Description 05/02/2020 Lab Requisition [facility] COVID [address] Through [address] [place] [address] [address] [place] [address] Alex Maravilla PA-C [address] [place] [address] Encounter for laboratory testing for COVID-19 [...] Date/Time Associated Diagnosis Comments COVID-19 (SARS-COV-2) - [facility] Routine 05/02/2020 1:40 PM EST Encounter for laboratory testing for COVID-19 virus [ICD-10-CM] documented in this encounter Results * COVID-19 (SARS-COV-2) (SEMA4) (05/02/2020 1:40 PM EST) COVID-19 RT-PCR NOT-DETEC LISA Not-Detec lisa 05/03/2020 5:28 PM EST [facility] - POP Comment:Interpretation: The viral RNA was not detected, making the COVID-19 diagnosis less likely. Clinical correlation is highly recommended.Final report signed by Kalin Del Rio, Ph.D., Laboratory DirectorTests performed at [facility] Nasopharyngeal swab / Unknown 05/02/2020 1:40 PM EST 05/02/2020 1:40 PM EST Narrative ALICE LORD - 05/03/2020 5:28 PM EST Performed by [email or web address], [employer] [address] [place] [address], CLIA# [id number] and [place] License# [id number] Alex Maravilla PA-C MICROBIOLOGY - NERAL ORDERABLES ALICE LORD documented in this encounter Visit Diagnoses Diagnosis Encounter for laboratory testing for COVID-19 virus documented in this encounter
== END 2024-06-05 09:14 | disposition home or self-care (01) ==
PROVIDERS: PCP Internal Medicine; Visit Provider Internal Medicine
DX: Z00.00 Encounter for general adult medical examination without abnormal findings (principal); J45.40 Moderate persistent asthma, uncomplicated; W54.0XXA Bitten by dog, initial encounter; J06.9 Acute upper respiratory infection, unspecified; Z23 Encounter for immunization

== ENCOUNTER 2024-06-27 07:55 | Outpatient (REF) | payer OTHER, SELFPAY ==
--- OUTSIDE RECORDS SUMMARY | 2024-06-27 07:57 | XMS_ITS | Encounter Summary ---
Author Organization [facility] Address [address] [place] [address] Care Team Providers Care Telephonic Rn Name Role Phone Unavailable Primary Care Provider Unavailabl e Encounter Details Date Type Department Care Team (Latest Contact Info) Description 04/20/2020 Lab Requisition [facility] COVID Drive Through [address] [place] [address] [address] [place] [address] Alex Maravilla PA-C [address] [place] [address] Encounter for laboratory testing for COVID-19 [...] Diagnosis Comments COVID-19 (SARS-COV-2) - [facility] Routine 04/20/2020 6:28 PM EST Encounter for laboratory testing for COVID-19 virus [ICD-10-CM] documented in this encounter Results * COVID-19 (SARS-COV-2) (SEMA4) (04/20/2020 6:28 PM EST) COVID-19 RT-PCR NOT-DETEC LISA Not-Detec lisa 04/22/2020 9:06 PM EST [facility] - POP Comment:Interpretation: The viral RNA was not detected, making the COVID-19 diagnosis less likely. Clinical correlation is highly recommended.Final report signed by Dior Fields, Ph.D., Laboratory DirectorTests performed at [email or web address] [facility] Nasopharyngeal swab / Unknown 04/20/2020 6:28 PM EST 04/20/2020 6:28 PM EST Narrative ALICE LORD - 04/22/2020 9:06 PM EST Performed by [employer], [employer] [address] [place] [address], CLIA# [id number] and [place] License# [id number] Alex Maravilla PA-C MICROBIOLOGY - NERAL ORDERABLES ALICE SAKINA Arpita POP documented in this encounter Visit Diagnoses Diagnosis Encounter for laboratory testing for COVID-19 virus documented in this encounter
--- OUTSIDE RECORDS SUMMARY | 2024-06-27 07:57 | XMS_ITS | Encounter Summary ---
Author Organization [facility] Address [address] [place] [address] Care Team Providers Care Industrial Education Teacher Name Role Phone Unavailable Primary Care Provider Unavailabl e Encounter Details Date Type Department Care Team (Latest Contact Info) Description 05/02/2020 Lab Requisition [facility] COVID Drive Through [address] [place] [address] [address] [place] [address] Alex Maravilla PA-C [address] [place] [address] Encounter for laboratory testing for COVID-19 [...] Date/Time Associated Diagnosis Comments COVID-19 (SARS-COV-2) - [facility] Routine 05/02/2020 1:40 PM EST Encounter for laboratory testing for COVID-19 virus [ICD-10-CM] documented in this encounter Results * COVID-19 (SARS-COV-2) ([facility]4) (05/02/2020 1:40 PM EST) COVID-19 RT-PCR NOT-DETEC LISA Not-Detec lisa 05/03/2020 5:28 PM EST [facility] - POP Comment:Interpretation: The viral RNA was not detected, making the COVID-19 diagnosis less likely. Clinical correlation is highly recommended.Final report signed by Kalin Del Rio, Ph.D., Laboratory DirectorTests performed at [facility] Nasopharyngeal swab / Unknown 05/02/2020 1:40 PM EST 05/02/2020 1:40 PM EST Narrative ALICE LORD - 05/03/2020 5:28 PM EST Performed by [employer], [employer] [address] [place] [address], CLIA# [id number] and [place] License# [id number] Alex Maravilla PA-C MICROBIOLOGY - NERAL ORDERABLES ALICE LORD documented in this encounter Visit Diagnoses Diagnosis Encounter for laboratory testing for COVID-19 virus documented in this encounter
--- OUTSIDE RECORDS SUMMARY | 2024-06-27 07:58 | XMS_ITS | Encounter Summary ---
Author Organization [facility] Address [address] [place] [address] Care Team Providers Care Nutrition Professor Name Role Phone Unavailable Primary Care Provider Unavailabl e Encounter Details Date Type Department Care Team (Latest Contact Info) Description [facility]/[address] [facility] [address] [place] [address] [address] [place] [address] Tad Burrows MD [address] [place] [address] Encounter for laboratory testing for [...] Date/Time Associated Diagnosis Comments COVID-19 (SARS-COV-2) - [facility] Routine 06/19/2020 8:24 AM EST Encounter for laboratory testing for COVID-19 virus [ICD-10-CM] documented in this encounter Results * COVID-19 (SARS-COV-2) (SEMA4) (06/19/2020 8:24 AM EST) COVID-19 RT-PCR NOT-DETEC LISA Not-Detec lisa 06/20/2020 8:28 AM EST [facility] - POP Comment:Interpretation: The viral RNA was not detected, making the COVID-19 diagnosis less likely. Clinical correlation is highly recommended.Final report signed by Kalin Del Rio, Ph.D., Laboratory DirectorTests performed at [employer] [facility] Nasopharyngeal swab / Unknown 06/19/2020 8:24 AM EST 06/19/2020 8:24 AM EST Narrative ALICE IVYALEXANDER - 06/20/2020 8:28 AM EST Performed by [employer]., [address] [place] [address], CLIA# [id number] and [place] License# [id number] Tad Burrows MD MICROBIOLOGY - GENER [place] ORDERABLES ALICE LORD documented in this encounter Visit Diagnoses Diagnosis Encounter for laboratory testing for COVID-19 virus documented in this encounter
--- OUTSIDE RECORDS SUMMARY | 2024-06-27 07:58 | XMS_ITS | Clinical Summary ---
Author Organization [facility] Address [address] [place] [address] Care Team Providers Care Industrial Engineering Director Name Role Phone Unavailable Primary Care Provider [...]
--- OUTSIDE RECORDS SUMMARY | 2024-06-27 07:58 | XMS_ITS | Encounter Summary ---
Author Organization [facility] Address [address] [place] [address] Care Team Providers Care Paper Bag Making Machinist Name Role Phone Unavailable Primary Care Provider Unavailabl e Encounter Details Date Type Department Care Team (Latest Contact Info) Description 05/30/[facility] [address] [place] [address] [address] [place] [address] Tad Burrows MD [address] [place] [address] Encounter for laboratory testing for [...] Date/Time Associated Diagnosis Comments COVID-19 (SARS-COV-2) - [facility] Routine 05/30/2020 11:57 AM EST Encounter for laboratory testing for COVID-19 virus [ICD-10-CM] documented in this encounter Results * COVID-19 (SARS-COV-2) (SEMA4) (05/30/2020 11:57 AM EST) COVID-19 RT-PCR NOT-DETEC LISA Not-Detec lisa 05/31/2020 11:35 AM EST [facility] - POP Comment:Interpretation: The viral RNA was not detected, making the COVID-19 diagnosis less likely. Clinical correlation is highly recommended.Final report signed by Dior Fields, Ph.D., Laboratory DirectorTests performed at [facility] Microbiology Nasopharyngeal swab / Unknown 05/30/2020 11:57 AM EST 05/30/2020 11:57 AM EST Narrative ALICE LORD - 05/31/2020 11:35 AM EST Performed by [employer] [address] [place] [address], CLIA# [id number] and [place] License# [id number] Tad Burrows MD MICROBIOLOGY - [facility] AL ORDERABLES ALICE LORD documented in this encounter Visit Diagnoses Diagnosis Encounter for laboratory testing for COVID-19 virus documented in this encounter
== END 2024-06-27 07:56 | disposition home or self-care (01) ==
LOC: HO.MAMMO 07:55
PROVIDERS: PCP Internal Medicine; Visit Provider Internal Medicine
DX: Z12.31 Encounter for screening mammogram for malignant neoplasm of breast (principal)
CPT/HCPCS: 77063; 77067

== ENCOUNTER → 2024-06-27 08:00 | Outpatient (BNV) | payer OTHER, SELFPAY | PROVIDERS: PCP Internal Medicine; Visit Provider Internal Medicine | DX: Z12.31 Encounter for screening mammogram for malignant neoplasm of breast (principal) | CPT/HCPCS: 77063; 77067 ==

== ENCOUNTER 2024-07-14 00:56 | Emergency (ER) | payer OTHER, SELFPAY ==
[2024-07-14] VITALS (7 sets, daily range): BP systolic 106–150; BP diastolic 52–90; PULSE 68–80; RESP 10–18; TEMP 36.6–37; O2SAT 97–100; BMI 39.8
--- NOTE | 2024-07-14 | ECG_ITS ---
Test Reason : CP Blood Pressure : */* mmHG Vent. Rate : 73 BPM Atrial Rate : 73 BPM P-R Int : 154 ms QRS Dur : 66 ms QT Int : 384 ms P-R-T Axes : 5 2 15 degrees QTcB Int : 423 ms Normal sinus rhythm Normal ECG When compared with ECG of 25-Jul-2020 20:59, Questionable change in QRS axis Referred By: Generic ED Physician Electronically Signed By: COLBY BRASWELL
--- NOTE | ~2024-07-14 | XR_ITS ---
CLINICAL HISTORY: chest pain 2 view chest x-ray. Comparison: None Findings: No consolidation, pneumothorax, or effusion. There is central pulmonary venous congestion. Heart size is borderline enlarged. Impression: 1. Borderline cardiomegaly with central pulmonary venous congestion. No focal pulmonary consolidation. This document has been electronically signed by: Hector Cifuentes MD on 07/14/2024 03:42:31
[2024-07-14 01:36] LABS: MANUAL DIFF FLAG NO
[2024-07-14 01:44] LABS: Basophils Absolute Auto 0.1 X10*3/uL (0.0-0.2); Basophils Percent Auto 0.5 % (0-2); Eosinophils Absolute Auto 0.2 X10*3/uL (0.0-0.4); Eosinophils Percent Auto 2.4 % (0-4); Hematocrit 34.1 % (37.0-47.0); Hemoglobin 10.7 g/dl (12.0-16.0); Imm Gran Abs Auto 0.03 X10*3/uL (0.00-0.03); Imm Gran Pct Auto 0.3 % (0.0-0.4); Lymphocytes Absolute Auto 2.6 X10*3/uL (1.2-4.9); Mean Corpuscular HGB Conc 31.4 g/dl (31.0-35.0); Mean Corpuscular Hemoglobin 26.2 pg (27.0-33.0); Mean Corpuscular Volume 83.4 fL (80.0-98.0); Mean Platelet Volume 9.1 fL (9.4-12.3); Monocytes Absolute Auto 0.7 X10*3/uL (0.1-1.2); Monocytes Percent Auto 7.3 % (2-11); Neutrophils Absolute Auto 5.8 x10*3/uL (2.0-8.3); Neutrophils Percent Auto 61.5 % (45-73); Platelet Count 331 X10*3/uL (160-400); Red Blood Count 4.09 X10*6/uL (4.20-5.50); Red Cell Distribution Width 14.8 % (11.0-16.0); White Blood Count 9.4 X10*3/uL (4.8-10.8)
[2024-07-14 02:02] LABS: Alanine Aminotransferase 13 U/L (0-31); Albumin Level 3.5 g/dL (3.5-5.0); Alkaline Phosphatase 62 U/L (39-117); Anion Gap 12 (12-20); Aspartate Amino Transferase 19 U/L (5-31); Bilirubin Total 0.2 mg/dL (0.0-1.0); Blood Urea Nitrogen 14 mg/dL (9-16); Calcium 8.6 mg/dL (8.4-10.2); Carbon Dioxide 19 mmol/L (22-29); Chloride 111 mmol/L (96-108); Creatinine Clr Calc Pharmacy 92.7; Estimated Glomerular Filt Rate > 60; Glucose Random 97 mg/dL (60-115); Potassium 3.5 mmol/L (3.3-5.1); Sodium 138 mmol/L (135-145); Total Protein 6.8 g/dL (6.5-8.0); Troponin-I High Sensitivity < 2.7 ng/L (<3.5-17.0)
--- NOTE | 2024-07-14 03:52 | PC.NURSE ---
Pt has been ambulatory w/o CP, sleeping now. Unlabored resp. skin PWD. Awaits eval by ED provider.
--- NOTE | 2024-07-14 04:15 | ED_ITS ---
HPI - Chest Pain General Chief Complaint: Chest Pain Stated Complaint: CHEST PAIN Time Seen by Provider: 07/14/24 04:14 Source: patient Mode of arrival: EMS Limitations: no limitations History of Present Illness ED Provider: Dr. Cody Whitt HPI narrative: 43-year-old female past medical history of anxiety, migraines, kidney stone, CHAIM, GERD, asthma who presents emergency department for evaluation of intermittent chest pain x1 month. she states she gets the chest pain 2 times a day. She points to her midsternal area when asked to localize the pain. The pain is a squeezing sensation which she will last 10 minutes. She denies any associated neck, jaw, arm or back pain. She denies lightheadedness, dizziness, shortness of breath associated with the pain. Patient states she was taking ibuprofen with some relief for the pain. She states the pain is 6/10 at its worst. Review of systems was negative for fever, chills, rhinorrhea, sore throat, nausea, vomiting or diarrhea. She states she has an occasional productive cough. Related Data Home Medications ?Medication ?Instructions ?Recorded ?Confirmed omeprazole 20 mg capsule,delayed 20 mg PO DAILY 04/29/20 06/05/24 release Previous Rx's ?Medication ?Instructions ?Recorded calcium carbonate 500 mg PO DAILY #30 tabs 07/06/20 fluticasone propionate 50 1 spray intranasal DAILY #100 mL 07/02/22 mcg/actuation nasal spray,suspension (Flonase Allergy Relief) diphenhydramine HCl 25 mg tablet 50 mg (2 x 25 mg) PO Q6-8H PRN 02/20/23 (Benadryl Allergy) allergic reaction #14 tabs loratadine 10 mg tablet (Claritin) 10 mg PO DAILY #30 tabs 02/20/23 acetaminophen 500 mg capsule 1,000 mg (2 x 500 mg) PO Q6H PRN 05/09/24 headaches #60 caps loperamide 2 mg capsule (Imodium 2 mg PO Q4H PRN loose stool #30 05/09/24 A-D) caps Symbicort 160 mcg-4.5 2 puff PO BID 30 days #1 ea 06/05/24 mcg/actuation HFA aerosol inhaler (budesonide-formoterol) guaifenesin 600 mg tablet, 600 mg PO BID 5 days #10 tabs 06/05/24 extended release 12 hr (Mucinex) Allergies Allergy/AdvReac Type Severity Reaction Status Date / Time No Known Allergies Allergy Verified 07/14/24 01:11 [No Known Allergies*] Review of Systems 2 Review of Systems: Yes all other systems are reviewed and are negative [facility] Past Medical History Medical History Morbid obesity Pelvic pain in female Carpal tunnel syndrome KAYLA (generalized anxiety disorder) Mild recurrent major depression Hand numbness Anxiety and depression Hospital discharge follow-up Post-COVID syndrome Hernia COVID-19 Migraines Shortness of breath Kidney calculi Surgical History S/P myomectomy Hx of cholecystectomy Family History Family History Family/Other No pertinent past medical history Father Lung cancer Mother Hypertension Diabetes Social History Social History (Updated 06/05/24 @ 08:53 by Cait Ellis MD) Housing: Apartment Alcohol intake: current Alcohol intake frequency: holidays/special occasions only Alcohol type: wine and hard liquor Patient Tobacco Use Status: Never used Tobacco Tobacco use type: Cigarette e-Cigarette/Vaping Use: Never Used Second Hand Smoke Exposure: Yes service: No Current occupational status: employed 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 Current occupational exposures/hazards: No Cognitive needs: No Hearing needs: No Vision needs: No Physical Exam 2 Vital Signs: Vital Signs: Last Vital Signs Temp 98.3 F 07/14/24 07:03 Pulse 74 07/14/24 07:03 Resp 14 07/14/24 07:03 BP 119/74 07/14/24 07:03 Pulse Ox 99 07/14/24 07:03 O2 Del Method Room Air 07/14/24 07:03 BMI result Body Mass Index 39.8 Vital signs were normal Exam: General: Awake, alert in no distress Head: Normocephalic, atraumatic EENT: PERRL, Lids normal, sclera normal, conjunctiva normal, nose normal , ears normal, throat without erythema or exudates Neck: Supple, no adenopathy Lung: breath sounds symmetric, no wheezing, rales or rhonchi Chest: symmetric movement, tenderness with the palpation over the sternum and costochondral joints bilaterally Heart: regular rate and rhythm, normal S1, S2 no murmurs or rubs Abdomen: soft, non-tender, nondistended, normal bowel sounds Back: no vertebral tenderness, no CVAT Extremities: no deformities, moves all extremities symmetrically Neuro: Awake, alert, oriented, normal speech, cranial nerves intact, moves all extremities symmetrically Psych: Pleasant, cooperative Medications Administered Discontinued Medications Generic Name Dose Route Start Last Admin Trade Name Rachell PRN Reason Stop Dose Admin Ibuprofen 400 mg 07/14/24 04:39 07/14/24 04:56 Ibuprofen 400 Mg Tablet PO 07/14/24 04:40 400 mg ONCE STA Administration Medical Decision Making Medical Decision Making [facility] Narrative: 43-year-old female past medical history of anxiety, migraines, kidney stone, CHAIM, GERD, asthma who presents emergency department for evaluation of 2 times daily,intermittent, squeezing like, mid sternal chest pain x1 month. the pain lasts approximately 10 minutes with no concerning associated symptoms. Vital signs were normal. Physical examination did reveal midsternal and bilateral costochondral joint tenderness. Differential diagnosis: Includes but is not limited to Myocardial infarction, myocardial ischemia, costochondritis, chest wall pain, anemia, electrolyte abnormalities Course: my independent interpretation patient's laboratory evaluation is as follows: Chronic normocytic anemia with an H&H of 10.7 and 34.1. BNP was unremarkable. High sensitive troponin I was below detectable limits. Chest x-ray revealed no acute disease. The EKG revealed no signs for myocardial infarction myocardial ischemia was unchanged from previous EKG. Based on the patient was presentation and physical findings, patient most likely has costochondritis and I did discuss this with her. Patient was given ibuprofen 400 mg orally. The patient was discharged home with printed and verbal instructions on costochondritis, she was advised to take Tylenol and ibuprofen for pain and to follow up with her doctor for re-evaluation. Admission/Observation Consideration of admission/observation: Escalation of care including admission/observation considered (Yes) Lab Data [facility] Lab Attestation statement: I reviewed the patient's lab results. 07/14/24 01:33 07/14/24 01:33 Labs: Lab Results 07/14/24 Range/Units 01:33 WBC 9.4 (4.8-10.8) X10*3/uL RBC 4.09 L (4.20-5.50) X10*6/uL Hgb 10.7 L (12.0-16.0) g/dl Hct 34.1 L (37.0-47.0) % MCV 83.4 (80.0-98.0) fL MCH 26.2 L (27.0-33.0) pg MCHC 31.4 (31.0-35.0) g/dl RDW 14.8 (11.0-16.0) % Plt Count 331 (160-400) X10*3/uL MPV 9.1 L (9.4-12.3) fL Immature Gran % (Auto) 0.3 (0.0-0.4) % Neut % (Auto) 61.5 (45-73) % Lymph % (Auto) 28.0 (20-40) % [place] % (Auto) 7.3 (2-11) % Eos % (Auto) 2.4 (0-4) % Baso % (Auto) 0.5 (0-2) % Lymph # (Auto) 2.6 (1.2-4.9) X10*3/uL [place] # (Auto) 0.7 (0.1-1.2) X10*3/uL Eos # (Auto) 0.2 (0.0-0.4) X10*3/uL Baso # (Auto) 0.1 (0.0-0.2) X10*3/uL Abs Immat Gran (auto) 0.03 (0.00-0.03) X10*3/uL Absolute Neuts (auto) 5.8 (2.0-8.3) x10*3/uL Absolute Nucleated RBC 0.000 (0.0-0.012) X10*3/uL Nucleated RBC % (auto) 0.0 (0.0-0.2) /100WBC Sodium 138 (135-145) mmol/L Potassium 3.5 (3.3-5.1) mmol/L Chloride 111 H (96-108) mmol/L Carbon Dioxide 19 L (22-29) mmol/L Anion Gap 12 (12-20) BUN 14 (9-16) mg/dL Creatinine 0.73 (0.5-1.4) mg/dL Estim Creat Clear Calc 92.7 Estimated GFR > 60 Random Glucose 97 (60-115) mg/dL Calcium 8.6 (8.4-10.2) mg/dL Total Bilirubin 0.2 (0.0-1.0) mg/dL AST 19 (5-31) U/L ALT 13 (0-31) U/L Alkaline Phosphatase 62 (39-117) U/L Troponin I High Sens < 2.7 (<3.5-17.0) ng/L Total Protein 6.8 (6.5-8.0) g/dL Albumin 3.5 (3.5-5.0) g/dL Independent Interpretation I performed an independent interpretation of an: EKG and Plain X-Ray Interpretation: My independent interpretation of the patient's two view chest x-ray is as follows: No significant pulmonary infiltrates. I did review radiology reading, patient may have some mild cardiomegaly however I do not think that it is significant. My independent interpretation patient's 12 EKG done on 07/14/2024 at 01:07 hours is as follows: Normal sinus rhythm rate of 73, normal LA interval, QRS duration and QTC interval, no ST segment elevation, no ST segment depression, no PACs, no PVCs, no significant T-wave abnormalities Radiology Impression Discussion of test interpretation with radiology: I have reviewed the radiologist's reading. Radiologist Impression: 2 view chest x-ray. Comparison: None Findings: No consolidation, pneumothorax, or effusion. There is central pulmonary venous congestion. Heart size is borderline enlarged. Impression: 1. Borderline cardiomegaly with central pulmonary venous congestion. No focal pulmonary consolidation. This document has been electronically signed by: Hector Cifuentes MD on 07/14/2024 03:42:31 Chronic Conditions Patient?s care impacted by: Other ( anxiety) Discharge Plan Discharge Clinical Impression: Acute costochondritis Patient Disposition: Home, Self-Care Instructions: Costochondritis (ED) Additional Instructions: Your chest x-ray did not reveal any clear cause for your chest pain which is reassuring Your EKG was normal. Your blood work was unremarkable. Your exam is consistent with inflammation of the joints of your chest (costochondritis) I want you to take ibuprofen 200 mg pills, 2 pills every 6 hours (3 times a day) for 4 days to reduce the inflammation in your chest then after that you can take it as needed for pain Take Tylenol (acetaminophen) 500 mg pills, 2 pills every 6 hours as needed for pain not relieved by the ibuprofen Follow-up with your doctor in 2 days. Please return to the emergency department if your symptoms get worse or if you develop any symptoms that are concerning to you. Prescriptions: No Action calcium carbonate 500 mg calcium (1,250 mg) tablet 500 mg PO DAILY Qty: 30 0RF fluticasone propionate [Flonase Allergy Relief] 50 mcg/actuation spray,suspension 1 spray intranasal DAILY Qty: 100 0RF Rx Instructions: administer into each nostril diphenhydramine HCl [Benadryl Allergy] 25 mg tablet 50 mg PO Q6-8H PRN (Reason: allergic reaction) Qty: 14 0RF loratadine [Claritin] 10 mg tablet 10 mg PO DAILY Qty: 30 0RF omeprazole 20 mg capsule,delayed release(DR/EC) 20 mg PO DAILY acetaminophen 500 mg capsule 1,000 mg PO Q6H PRN (Reason: headaches) Qty: 60 0RF loperamide [Imodium A-D] 2 mg capsule 2 mg PO Q4H PRN (Reason: loose stool) Qty: 30 0RF Rx Instructions: administer after each loose stool until symptoms controlled; do not exceed 8 mg per 24 hrs budesonide-formoterol [Symbicort] 160-4.5 mcg/actuation HFA aerosol inhaler 2 puff PO BID 30 Days Qty: 1 2RF guaifenesin [Mucinex] 600 mg tablet extended release 12hr 600 mg PO BID 5 Days Qty: 10 0RF Interventions: ED Discharge Assessment Last Done: 07/14/24 07:03 Discharge Date/Time: 07/14/24 07:04 Print Language: Khmer
[2024-07-14] MEDS: Ibuprofen 400 MG TABLET PO (04:56)
--- NOTE | 2024-07-14 04:58 | PC.NURSE ---
Pt has been sleepin gmostly. when awake states pain is consistant at 6/10. NAD. NSR On monitor.
== END 2024-07-14 07:04 | disposition home or self-care (01) ==
PROVIDERS: Emergency Provider Emergency Medicine Emergency Medical Services; PCP Internal Medicine
DX: M94.0 Chondrocostal junction syndrome [Tietze] (principal); R05.9 Cough, unspecified; R07.89 Other chest pain; Z79.899 Other long term (current) drug therapy
CPT/HCPCS: 36415; 71046; 80053; 84484; 85025; 93005; 99283; 99285

== ENCOUNTER → 2024-07-14 01:07 | Outpatient (BNV) | payer OTHER, SELFPAY | PROVIDERS: Emergency Provider Emergency Medicine Emergency Medical Services; PCP Internal Medicine; Visit Provider Internal Medicine | DX: R07.9 Chest pain, unspecified (principal) | CPT/HCPCS: 93010 ==

== ENCOUNTER → 2024-07-14 03:10 | Outpatient (BNV) | payer OTHER, SELFPAY | PROVIDERS: PCP Internal Medicine; Visit Provider Radiology Diagnostic Radiology | DX: R07.9 Chest pain, unspecified (principal) | CPT/HCPCS: 71046 ==

== ENCOUNTER 2025-02-06 07:08 | Outpatient (AMB) | payer OTHER, SELFPAY ==
--- OUTSIDE RECORDS SUMMARY | 2025-02-06 07:10 | XMS_ITS | Encounter Summary ---
Author Organization [facility] Address [address] [place] [address] Care Team Providers Care Intermediate Manager Name Role Phone Unavailable Primary Care Provider Unavailabl e Encounter Details Date Type Department Care Team (Latest Contact Info) Description 06/19/2020 Lab Requisition [facility] COVID [address] Through [address] [place] [address] [address] [place] [address] Tad Burrows MD [address] [place] [address] Encounter for laboratory testing for COVID-19 virus Social History Tobacco Use Types Packs/Day Years Used Date Smoking Tobacco: Never Assessed Comments Unknown Sex and Gender Information Value Date Recorded Sex Assigned at Not on file Legal Sex Female 6:27 PM EST Gender Identity Not on file Sexual Orientation Not on file documented as of this encounter Plan of Treatment Not on file documented as of this encounter Procedures Procedure Name Priority Date/Time Associated Diagnosis Comments COVID-19 (SARS-COV-2) - SEMA4 LAB Routine 06/19/2020 8:24 AM EST Encounter for laboratory testing for COVID-19 virus [ICD-10-CM] documented in this encounter Results * COVID-19 (SARS-COV-2) (SEMA4) (06/19/2020 8:24 AM EST) COVID-19 RT-PCR NOT-DETEC LISA Not-Detec lisa 06/20/2020 8:28 AM EST SEMA4 LAB - POP Comment:Interpretation: The viral RNA was not detected, making the COVID-19 diagnosis less likely. Clinical correlation is highly recommended.Final report signed by Kalin Del Rio, Ph.D., Laboratory DirectorTests performed at [facility] Nasopharyngeal swab / Unknown 06/19/2020 8:24 AM EST 06/19/2020 8:24 AM EST Narrative ALICE LORD - 06/20/2020 8:28 AM EST Performed by [facility] [address] [place] [address], CLIA# [id number] and [place] License# [id number] us Tad Burrows MD MICROBIOLOGY - GENERAL ORDER JUANJO Final Result ALICE LORD documented in this encounter Visit Diagnoses Diagnosis Encounter for laboratory testing for COVID-19 virus documented in this encounter
--- OUTSIDE RECORDS SUMMARY | 2025-02-06 07:10 | XMS_ITS | Encounter Summary ---
Author Organization [facility] Address [address] [place] [address] Care Team Providers Care Investor Relations Associate Name Role Phone Unavailable Primary Care Provider Unavailabl e Encounter Details Date Type Department Care Team (Latest Contact Info) Description 05/02/2020 Lab Requisition [facility] COVID Drive Through [address] [place] [address] [address] [place] [address] Alex Maravilla PA-C [address] [place] [address] Encounter for laboratory testing for COVID-19 [...] Comments COVID-19 (SARS-COV-2) - SEMA4 LAB Routine 05/02/2020 1:40 PM EST Encounter for laboratory testing for COVID-19 virus [ICD-10-CM] documented in this encounter Results * COVID-19 (SARS-COV-2) (SEMA4) (05/02/2020 1:40 PM EST) COVID-19 RT-PCR NOT-DETEC LISA Not-Detec lisa 05/03/2020 5:28 PM EST SEMA4 LAB - POP Comment:Interpretation: The viral RNA was not detected, making the COVID-19 diagnosis less likely. Clinical correlation is highly recommended.Final report signed by Kalin Del Rio, Ph.D., Laboratory DirectorTests performed at [facility] Nasopharyngeal swab / Unknown 05/02/2020 1:40 PM EST 05/02/2020 1:40 PM EST Narrative ALICE IVYALEXANDER - 05/03/2020 5:28 PM EST Performed by [facility] [address] [place] [address], CLIA# [id number] and [place] License# [id number] Alex Maravilla PA-C MICROBIOLOGY - GENERAL OR DERABLES Final Result ALICE LORD documented in this encounter Visit Diagnoses Diagnosis Encounter for laboratory testing for COVID-19 virus documented in this encounter
--- OUTSIDE RECORDS SUMMARY | 2025-02-06 07:10 | XMS_ITS | Clinical Summary ---
Author Organization [facility] Address [address] [place] [address] Care Team Providers Care Ticket Agent Name Role Phone Unavailable Primary Care Provider [...] (Ages 21-65) 2002 Mammogram 2021 Influenza Vaccine 11/14/2024 COVID-19 Vaccine ( - 2023-2 5 season) 2024 HPV Vaccines (No Doses Required) Completed Pneumococcal Vaccine: Pediat pawan (0-5 Years) and At-Risk Patients (6 to 49 Years) Aged Out No longer eligible b ased on patient's age to complete this topic Insurance [facility] Tripda
--- OUTSIDE RECORDS SUMMARY | 2025-02-06 07:10 | XMS_ITS | Encounter Summary ---
Author Organization [facility] Address [address] [place] [address] Care Team Providers Care Frit Mixer And Burner Name Role Phone Unavailable Primary Care Provider Unavailabl e Encounter Details Date Type Department Care Team (Latest Contact Info) Description 05/30/2020 Lab Requisition [facility] COVID Drive Through [address] [place] [address] [address] [place] [address] Tad Burrows MD [address] [place] [address] Encounter for laboratory testing for [...] Comments COVID-19 (SARS-COV-2) - SEMA4 LAB Routine 05/30/2020 11:57 AM EST Encounter for laboratory testing for COVID-19 virus [ICD-10-CM] documented in this encounter Results * COVID-19 (SARS-COV-2) (SEMA4) (05/30/2020 11:57 AM EST) COVID-19 RT-PCR NOT-DETEC LISA Not-Detec lisa 05/31/2020 11:35 AM EST SEMA4 LAB - POP Comment:Interpretation: The viral RNA was not detected, making the COVID-19 diagnosis less likely. Clinical correlation is highly recommended.Final report signed by Dior Fields, Ph.D., Laboratory DirectorTests performed at [facility] Nasopharyngeal swab / Unknown 05/30/2020 11:57 AM EST 05/30/2020 11:57 AM EST Narrative ALICE LORD - 05/31/2020 11:35 AM EST Performed by [facility] [address] [place] [address], CLIA# [id number] and [place] License# [id number] us Tad Burrows MD MICROBIOLOGY - GENERAL ORDER JUANJO Final Result ALICE LORD documented in this encounter Visit Diagnoses Diagnosis Encounter for laboratory testing for COVID-19 virus documented in this encounter
--- OUTSIDE RECORDS SUMMARY | 2025-02-06 07:10 | XMS_ITS | Encounter Summary ---
Author Organization [facility] Address [address] [place] [address] Care Team Providers Care Pickling Operator Name Role Phone Unavailable Primary Care Provider Unavailabl e Encounter Details Date Type Department Care Team (Latest Contact Info) Description 04/20/2020 Lab Requisition [facility] COVID Drive Through [address] [place] [address] [address] [place] [address] Alex Maravilla PA-C [address] [place] [address] Encounter for laboratory testing for COVID-19 [...] Comments COVID-19 (SARS-COV-2) - SEMA4 LAB Routine 04/20/2020 6:28 PM EST Encounter for laboratory testing for COVID-19 virus [ICD-10-CM] documented in this encounter Results * COVID-19 (SARS-COV-2) (SEMA4) (04/20/2020 6:28 PM EST) COVID-19 RT-PCR NOT-DETEC LISA Not-Detec lisa 04/22/2020 9:06 PM EST SEMA4 LAB - POP Comment:Interpretation: The viral RNA was not detected, making the COVID-19 diagnosis less likely. Clinical correlation is highly recommended.Final report signed by Dior Fields, Ph.D., Laboratory DirectorTests performed at [facility] Nasopharyngeal swab / Unknown 04/20/2020 6:28 PM EST 04/20/2020 6:28 PM EST Narrative ALICE IVYALEXANDER - 04/22/2020 9:06 PM EST Performed by [facility] [address] [place] [address], CLIA# [id number] and [place] License# [id number] Alex Maravilla PA-C MICROBIOLOGY - GENERAL OR DERABLES Final Result ALICE SAKINA Arpita LORD documented in this encounter Visit Diagnoses Diagnosis Encounter for laboratory testing for COVID-19 virus documented in this encounter
--- NOTE | 2025-02-06 07:44 | A.OFFPC_ITS ---
Vital Signs 02/06/25 07:55 BP 125/85 Respiration 22 H Pulse 80 Intake Visit Reasons: /[facility] RT cut hand middle finger Allergies No Known Allergies (No Known Allergies*) Allergy (Verified 02/06/25 07:44) Tobacco use date assessed: 05/09/24 Dental Screening Dental Screen Date: 05/09/24 HPI HPI Comments History of Present Illness Details 45 y/o Female patient who presents to [facility] for EDF. Pt was admitted at [facility] on 01/27/25 after she suffered an injury at work. She accidentally Cut herself at work with a knife (right middle finger Tip) and required 10 stitches. She presents for stitch removal today on day 10th. Denies fevers, chills, nausea or vomiting. She reports still tenderness at the wound site. Denies any drainage. [facility] Medical History (Updated 02/06/25 @ 07:57 by Violetat Garcia NP) Encounter for wound re-check Morbid obesity Pelvic pain in female Carpal tunnel syndrome KAYLA (generalized anxiety disorder) Mild recurrent major depression Hand numbness Anxiety and depression Hospital discharge follow-up Post-COVID syndrome Hernia COVID-19 Migraines Shortness of breath Kidney calculi Surgical History S/P myomectomy Hx of cholecystectomy Family History Family/Other No pertinent past medical history Father Lung cancer Mother Hypertension Diabetes Social History (Updated 06/05/24 @ 08:53 by Cait Ellis MD) Housing: Apartment Alcohol intake: current Alcohol intake frequency: holidays/special occasions only Alcohol type: wine and hard liquor Patient Tobacco Use Status: Never used Tobacco Tobacco use type: Cigarette e-Cigarette/Vaping Use: Never Used Second Hand Smoke Exposure: Yes service: No Current occupational status: employed 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 Jacoby Hahn, Swati Baltazar, Efrem Teresa and colleagues, with an educational young from [employer]. Review of Systems Const All systems reviewed & are unremarkable except as noted in HPI and below Physical exam (Primary Care) Vital Signs: Last Vital Signs Pulse 80 02/06/25 07:55 Resp 22 H 02/06/25 07:55 BP 125/85 02/06/25 07:55 Tobacco/Smoking Status: Tobacco use Status Tobacco use date assessed 05/09/24 02/06/25 07:45 Patient Tobacco Use Status Never used Tobacco 02/06/25 07:45 Tobacco use type Cigarette 02/06/25 07:45 e-Cigarette/Vaping Use Never Used 02/06/25 07:45 Thrive Assessment: Date of Thrive Assessment Date Thrive assessed 06/04/24 02/06/25 07:45 Const General: no acute distress Orientation/consciousness: patient oriented x3 Neuro General: patient oriented x3, gait normal and moves all extremities Extrem Other: Right Finger Tip, Wound edges are closed, wound bed looks pink, with a thin scab layer of new skin formed. Stitches intact. Mild tenderness around the wound. Right upper extremity: Extremity exam: right hand Coding Level of Care Code Est Pt Level 4 (01469) Diagnoses Encounter for wound re-check Z51.89 Time Spent (min) 20 Assessment & Plan Assessment & Plan (1) Encounter for wound re-check: Code(s): Z51.89 - Encounter for other specified aftercare Category: Medical Plan: Pt declined stitches removal today due to tenderness around the wound. She is on day 10th, it is okay to wait additional more days. It is recommended to remove stitches after 10-14 days. Pt would like to wait until Sunday for removal. Advised to come in as a walk in clinic in [place] for removal.
[2025-02-06 07:55] VITALS: BP 125/85; PULSE 80; RESP 22
== END 2025-02-06 10:09 | disposition home or self-care (01) ==
PROVIDERS: PCP Internal Medicine; Visit Provider Nurse Practitioner Family
DX: Z51.89 Encounter for other specified aftercare (principal)

== ENCOUNTER → 2025-02-06 07:08 | Outpatient (BNVA) | payer OTHER, SELFPAY | PROVIDERS: PCP Internal Medicine; Visit Provider Nurse Practitioner Family | DX: S61.212D Laceration without foreign body of right middle finger without damage to nail, subsequent encounter (principal); W26.0XXD Contact with knife, subsequent encounter | CPT/HCPCS: 99212 ==